=== PATIENT | female | born 1940 | race Caucasian/White ===

== ENCOUNTER 2020-04-05 18:32 | Inpatient (IN) | payer OTHER ==
[2020-04-05 18:41] LABS: Glucose,Whole Blood 176 mg/dL (75-99)
[2020-04-05] MEDS ORDERED: SODIUM CHLORIDE 0.9% 500 ML 500 ML IV ONE ×2 (18:55→23:28)
[2020-04-05] MEDS ORDERED: MIDAZOLAM 1 MG/ML 5 ML VIAL IV STA ×3 (19:03→20:02)
[2020-04-05 19:26] LABS: Basophils % (A) 0 %; Eosinophils # (A) 0.2 k/uL (0-0.7); Eosinophils % (A) 2 %; HCT 44.1 % (34.0-46.0); HGB 14.8 gm/dL (11.4-16.0); Lymphocytes # (A) 0.4 k/uL (1.0-4.8); Lymphocytes % (A) 4 %; MCH 29.5 pg (25.0-35.0); MCHC 33.5 g/dL (31.0-37.0); MCV 87.9 fL (80.0-100.0); Mean Platelet Volume 7.8; Monocytes # (A) 0.5 k/uL (0-1.0); Monocytes % (A) 4 %; Neutrophils # (A) 10.2 k/uL (1.3-7.7); Neutrophils % (A) 90 %; Platelet Count 182 k/uL (150-450); RBC 5.02 m/uL (3.80-5.40); RDW 13.5 % (11.5-15.5); WBC 11.4 k/uL (3.8-10.6)
[2020-04-05 19:33] LABS: Alcohol <10 mg/dL; Salicylate <1.0 mg/dL
[2020-04-05 19:35] LABS: ALT 16 U/L (4-34); AST 27 U/L (14-36); Acetaminophen <10.0 ug/mL; African American GFR (CKD) 65 (>60 ml/min/1.73 sqM); Alcohol <10 mg/dL; Alkaline Phosphatase 95 U/L (38-126); Anion Gap 14 mmol/L; Blood Urea Nitrogen 20 mg/dL (7-17); Calcium 10.4 mg/dL (8.4-10.2); Carbon Dioxide 23 mmol/L (22-30); Chloride 98 mmol/L (98-107); Creatine Kinase 293 U/L (30-135); Glucose 174 mg/dL (74-99); Non-African American GFR(CKD) 56 (>60 ml/min/1.73 sqM); Potassium 4.3 mmol/L (3.5-5.1); Sodium 135 mmol/L (137-145); Total Bilirubin 0.8 mg/dL (0.2-1.3); Total Protein 8.6 g/dL (6.3-8.2)
[2020-04-05 19:39] LABS: Lactic Acid, Venous 2.3 mmol/L (0.7-2.0); Prothrombin Time 10.4 sec (9.0-12.0)
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
[2020-04-05 19:51] LABS: Partial Thromboplastin Time 18.6 sec (22.0-30.0)
--- NOTE | 2020-04-05 19:52 | XR ---
EXAMINATION TYPE: XR chest 2V DATE OF EXAM: 04/05/2020 COMPARISON: NONE HISTORY: Altered mental status. TECHNIQUE: Frontal and lateral views of the chest are obtained. FINDINGS: The lungs are hypoaerated. There is mild prominence of the interstitial and vascular leah ngs. No pleural effusion, or pneumothorax seen. The cardiac silhouette size is enlarged. The osseo us structures are intact. IMPRESSION: Hypoventilatory changes versus mild interstitial edema.
[2020-04-05 19:59] LABS: VBG PH 7.38 (7.31-7.41)
[2020-04-05] MEDS ORDERED: LORazepam 2 MG/ML INJ IV STA (20:02)
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
[2020-04-05] MEDS ORDERED: diphenhydrAMINE 50 MG/ML 1 ML VIAL IVP STA (21:14)
[2020-04-05 22:05] LABS: Appearance,Urine Clear (Clear); Bilirubin,Urine Negative (Negative); Blood,Urine Large (Negative); Color,Urine Light Yellow; Glucose,Urine (UA) Trace (Negative); Hyaline Casts,Urine 1 /lpf (0-2); Ketones,Urine Negative (Negative); Leukocyte Esterase,Urine Negative (Negative); Mucus,Urine Rare /hpf; Nitrite,Urine Negative (Negative); Protein,Urine 3+ (Negative); RBC,Urine 3 /hpf (0-5); Specific Gravity,Urine 1.015 (1.001-1.035); Urobilinogen,Urine <2.0 mg/dL (<2.0); WBC,Urine 1 /hpf (0-5)
[2020-04-05 22:26] LABS: Amphetamine Screen,Urine Not Detected (NotDetected); Barbiturate Screen,Urine Not Detected (NotDetected); Benzodiazepines Screen,Urine Not Detected (NotDetected); Cocaine Screen,Urine Not Detected (NotDetected); Methadone Screen, Urine Not Detected (NotDetected); Opiate Screen,Urine Detected (NotDetected); Oxycodone Screen, Urine Not Detected (NotDetected); Phencyclidine Screen,Urine Not Detected (NotDetected); Tricyclic Antidepressant,Urine Not Detected (NotDetected); Urn Cannabinoid Scrn Not Detected (NotDetected)
--- NOTE | 2020-04-05 22:28 | CT ---
EXAMINATION TYPE: CT angio head neck DATE OF EXAM: 04/05/2020 COMPARISON: None HISTORY: stroke CT DLP: 779.2 mGycm Automated exposure control for dose reduction was used. CONTRAST: Performed with IV Contrast, patient injected with 65 mL of Isovue 370. There are 3-D post processed images. Images obtained from the aortic arch to the vertex of the brain with IV contrast. Heart is enlarged. Thoracic aorta is atheromatous. There is 4.7 cm aneurysm of the ascending aorta. T here is no dissection. There is arterial flow in the subclavian arteries bilaterally. There is tortuo sity of the great vessels on the aortic arch. There is normal branching pattern. There is arterial flow in the common internal and external carotid arteries bilaterally. There is mil d plaque formation at the carotid artery bifurcations and less than 20% stenosis. There is arterial f low in both vertebral arteries. There is no evidence of carotid or vertebral artery aneurysm or disse ction. There is arterial flow in the vertebrobasilar artery system. There is arterial flow in the anterior middle and posterior cerebral arteries. There is normal contrast opacification of the venous sinuses. There is no evidence of intracranial an eurysm or neovascularity. There is no mass effect. I see no intracranial arterial stenosis. IMPRESSION: Minimal atheromatous change at the carotid artery bifurcations. No evidence of hemodynamic stenosis. 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 No dissection. No significant intracranial angiographic abnor mality.
[2020-04-05] MEDS ORDERED: NALOXONE 0.4 MG/ML 1 ML VIAL IV PRN (23:25)
[2020-04-05] MEDS ORDERED: ASPIRIN 300 MG SUPP RECTAL STA (23:27)
[2020-04-06] MEDS: SODIUM CHLORIDE 0.9% 1,000 ML IV SCH ×2 (00:11→19:54)
[2020-04-06 00:31] LABS: Glucose,Whole Blood 147 mg/dL (75-99)
[2020-04-06] MEDS ORDERED: levETIRAcetam IV 1,000 MG in SALINE 1 100ML.BAG IVPB STA (03:18)
[2020-04-06] MEDS: LORazepam 2 MG/ML INJ IV PRN ×7 (03:26→23:19)
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
--- NOTE | 2020-04-06 04:30 | CT ---
EXAM: CT Head Without Intravenous Contrast CLINICAL HISTORY: facial swelling, assess for fractures, confusion TECHNIQUE: Axial computed tomography images of the head/brain without intravenous contrast. CTDI is 49.27 mGy and DLP is 1276.4 mGy-cm. This CT exam was performed using one or more of the following dose reduction techniques: automated exposure control, adjustment of the mA and/or kV according to patient size, and/or use of iterative reconstruction technique. COMPARISON: April 05, 2020 FINDINGS: Brain: Chronic small vessel ischemic changes in the white matter. No acute intracranial hemorrhage, edema or abnormal mass-effect. Ventricles: Unremarkable. No ventriculomegaly. Bones/joints: Unremarkable. No acute fracture. Soft tissues: Unremarkable. Sinuses: Unremarkable as visualized. No acute sinusitis. Mastoid air cells: Unremarkable as visualized. No mastoid effusion. Other findings: The study is motion degraded along the inferior aspect. IMPRESSION: No acute findings in the head/brain. Motion degraded study inferiorly.
[2020-04-06] MEDS ORDERED: ACETAMINOPHEN IV (For NPO) 1,000 MG in EMPTY BAG 1 BAG IVPB PRN (06:35)
[2020-04-06 07:31] LABS: Calcium 10.2 mg/dL (8.4-10.2); Potassium 3.6 mmol/L (3.5-5.1)
[2020-04-06 07:48] LABS: Basophils # (A) 0.1 k/uL (0-0.2); Basophils % (A) 1 %; Eosinophils % (A) 0 %; HCT 46.9 % (34.0-46.0); HGB 15.7 gm/dL (11.4-16.0); Lymphocytes # (A) 0.6 k/uL (1.0-4.8); Lymphocytes % (A) 4 %; MCH 30.5 pg (25.0-35.0); MCHC 33.5 g/dL (31.0-37.0); MCV 91.2 fL (80.0-100.0); Mean Platelet Volume 7.6; Monocytes # (A) 1.3 k/uL (0-1.0); Monocytes % (A) 9 %; Neutrophils # (A) 12.5 k/uL (1.3-7.7); Neutrophils % (A) 85 %; Platelet Count 232 k/uL (150-450); RBC 5.14 m/uL (3.80-5.40); RDW 13.2 % (11.5-15.5); WBC 14.7 k/uL (3.8-10.6)
[2020-04-06] MEDS ORDERED: HALOPERIDOL LACTATE 5 MG/ML 1 ML VIAL IM STA (07:55)
[2020-04-06] MEDS ORDERED: HALOPERIDOL LACTATE 5 MG/ML 1 ML VIAL ONE (07:57)
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
[2020-04-06 08:53] LABS: Appearance,Urine Cloudy (Clear); Bilirubin,Urine Negative (Negative); Blood,Urine Large (Negative); Color,Urine Light Brown; Glucose,Urine (UA) 1+ (Negative); Ketones,Urine Negative (Negative); Leukocyte Esterase,Urine Moderate (Negative); Mucus,Urine Rare /hpf; Nitrite,Urine Negative (Negative); PH, Urine 6.5 (5.0-8.0); Protein,Urine 3+ (Negative); RBC,Urine >182 /hpf (0-5); Specific Gravity,Urine 1.037 (1.001-1.035); Urobilinogen,Urine <2.0 mg/dL (<2.0); WBC,Urine 69 /hpf (0-5)
[2020-04-06] MEDS: ACYCLOVIR SODIUM 800 MG in SODIUM CHLORIDE 0.9% 100 ML IV SCH ×2 (09:58→21:28)
[2020-04-06 10:13] LABS: Cholesterol 246 mg/dL (<200); HDL Cholesterol 55 mg/dL (40-60); LDL Cholesterol,Calculated 168 mg/dL (0-99); Triglycerides 117 mg/dL (<150)
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
[2020-04-06] MEDS ORDERED: PHENYTOIN SODIUM INJ 1,000 MG in SODIUM CHLORIDE 0.9% 100 ML IVPB STA (11:34)
[2020-04-06] MEDS ORDERED: IV FLUID CONTINUATION 1,000 ML IV ONE (12:30)
[2020-04-06] MEDS ORDERED: PROPOFOL 10 MG/ML 20 ML VIAL IV ONE (12:55)
[2020-04-06 12:58] LABS: Glucose,Whole Blood 158 mg/dL (75-99)
--- NOTE | 2020-04-06 13:15 | P.PCN ---
Date of Procedure: 04/06/20 Description of Procedure: Procedure: Lumbar Puncture . Preoperative Diagnoses: Encephalopathy Postoperative Diagnosis: Encephalopathy Anesthesia: Gen. IV sedation Condition: stable. Complications: none. Description of the procedure: Patient was seen in the preoperative area. She was noted to be combative but awake. She did not respond to any instructions. Consent was signed by the family on the floor. She was brought to the procedure room on the stretcher. Monitors were placed and then she was sedated via her IV. She was placed in left lateral decubitus position. The back was cleansed with iodine 3. The sacral os was palpated, the iliac crest was palpated to identify the L2-L3 interspace. At that point lidocaine 1% was used to anesthetize the skin, total of 5 mL was used. A 22 gauge spinal needle was advanced until spinal fluid was aspirated through the needle and a three - way stop cock. Opening pressure CSF was 18, CSF was obtained and sent off to laboratory for examination. Band-Aid was placed after the procedure the patient was instructed to lay flat for the next few hours. The patient was discharged from the PACU in stable condition.
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
[2020-04-06 14:52] LABS: Appearance,CSF Clear; CSF Tube Number 3; CSF Tube Volume 2; Nucleated Cells, CSF 0 u/L (0-5); Red Blood Cell,CSF 1 u/L (0-10)
[2020-04-06 14:53] LABS: Glucose,CSF 100 mg/dL (40-70); Total Protein,CSF 63 mg/dL (12-60)
[2020-04-06 15:34] LABS: Glucose,Whole Blood 140 mg/dL (75-99)
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
[2020-04-06] MEDS ORDERED: VANCOMYCIN 1,500 MG in SODIUM CHLORIDE 0.9% 250 ML IVPB STA (15:53)
[2020-04-06] MEDS: METOPROLOL TARTRATE 5 MG/5 ML VIAL IVP SCH (17:46)
[2020-04-06] MEDS: AMPICILLIN 1,000 MG in SODIUM CHLORIDE 0.9% 50 ML IVPB SCH (17:50)
--- NOTE | 2020-04-06 17:53 | ECHOF ---
Referral Reason:elevated troponin. No recent Echo on patient MEASUREMENTS -------- HEIGHT: 170.2 cm WEIGHT: 78.5 kg BP: IVSd: 1.1 cm (0.6 - 1.1) LVIDd: 2.2 cm (3.9 - 5.3) LVPWd: 1.4 cm (0.6 - 1.1) IVSs: 1.4 cm LVIDs: 1.0 cm LVPWs: 1.3 cm MV E Samuel: 0.46 m/s MV DecT: 146 ms MV A Samuel: 0.93 m/s MV E/A Ratio: 0.50 RAP: 5.00 mmHg RVSP: 14.84 mmHg FINDINGS -------- This was a technically difficult study with suboptimal views. Pt. is combative limited study. The left ventricular size is normal. Left ventricular wall thickness is normal. Overall left vent ricular systolic function is low-normal with, an EF between 50 - 55 %. The RV was not well visualized. The left atrial size is normal. The right atrium was not well visualized. Lumason used The aortic valve was not well visualized. The mitral valve is normal. Mild mitral regurgitation is present. The tricuspid valve appears structurally normal. Mild tricuspid regurgitation present. Right vent ricular systolic pressure is normal at < 35 mmHg. There is no pulmonic regurgitation present. The aortic root size is normal. IVC Not well visulized. There is no pericardial effusion. CONCLUSIONS -------- 1. Pt. is combative limited study. 2. The left ventricular size is normal. 3. Left ventricular wall thickness is normal. 4. Overall left ventricular systolic function is low-normal with, an EF between 50 - 55 %. 5. Mild mitral regurgitation is present. 6. Mild tricuspid regurgitation present. 7. There is no pericardial effusion. AFTER SCHOOL COUNSELOR: Arpita Tavarez RDCS
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
[2020-04-06 21:16] LABS: Glucose,Whole Blood 113 mg/dL (75-99)
[2020-04-07] MEDS: METOPROLOL TARTRATE 5 MG/5 ML VIAL IVP SCH ×3 (00:02→15:58)
[2020-04-07] MEDS: AMPICILLIN 1,000 MG in SODIUM CHLORIDE 0.9% 50 ML IVPB SCH ×4 (00:06→18:22)
[2020-04-07] MEDS: LORazepam 2 MG/ML INJ IV PRN ×3 (01:34→05:09)
[2020-04-07 04:00] LABS: Basophils % (A) 0 %; Eosinophils # (A) 0.4 k/uL (0-0.7); Eosinophils % (A) 2 %; HCT 46.2 % (34.0-46.0); HGB 15.7 gm/dL (11.4-16.0); Lymphocytes # (A) 1.1 k/uL (1.0-4.8); Lymphocytes % (A) 7 %; MCH 30.1 pg (25.0-35.0); MCV 88.4 fL (80.0-100.0); Mean Platelet Volume 7.5; Monocytes # (A) 1.3 k/uL (0-1.0); Monocytes % (A) 8 %; Neutrophils # (A) 12.9 k/uL (1.3-7.7); Neutrophils % (A) 81 %; Platelet Count 203 k/uL (150-450); RBC 5.23 m/uL (3.80-5.40); RDW 13.4 % (11.5-15.5); WBC 15.9 k/uL (3.8-10.6)
[2020-04-07 04:19] LABS: Potassium 4.7 mmol/L (3.5-5.1)
[2020-04-07] MEDS: VANCOMYCIN 1,250 MG in SODIUM CHLORIDE 0.9% 250 ML IVPB SCH ×2 (05:43→22:13)
[2020-04-07 05:49] LABS: Glucose,Whole Blood 117 mg/dL (75-99)
--- NOTE | 2020-04-07 06:35 | XR ---
EXAMINATION TYPE: XR chest 1V DATE OF EXAM: 04/07/2020 CLINICAL HISTORY: Difficulty breathing progress study. TECHNIQUE: 2 AP portable supine views of the chest are obtained. COMPARISON: Chest x-ray from 2 days earlier FINDINGS: There is chronic parenchymal change bilaterally with new lateral right basilar linear atel ectasis and upper lung vertical linear atelectasis. Persistent cardiomegaly with atherosclerotic styles ge aortic knob. Osseous structures are intact. IMPRESSION: Cardiomegaly and chronic parenchymal changes with low lung volumes redemonstrated. New sc attered right lung linear atelectasis noted.
[2020-04-07] MEDS ORDERED: HALOPERIDOL LACTATE 5 MG/ML 1 ML VIAL IVP PRN ×2 (07:51→16:09)
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
[2020-04-07] MEDS: ACYCLOVIR SODIUM 800 MG in SODIUM CHLORIDE 0.9% 100 ML IV SCH ×2 (11:11→21:09)
[2020-04-07 12:03] LABS: Glucose,Whole Blood 112 mg/dL (75-99)
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
--- NOTE | 2020-04-07 14:29 | P.PN ---
Subjective Progress Note Date: 04/07/20 Patient was seen for a follow-up using Tele-neurology. Patient is slightly better today. She still encephalopathic, restless, thrashing in the bed. Patient has received multiple doses of Ativan overnight for restlessness, agitation. Per nurse she has received total of 5 mg. Patient currently on 4 L of oxygen, not on any pressors. No sedation. No seizure-like activity noted. Patient's blood test shows WBC 15.9 hemoglobin 15.7, platelets 203 electrolytes are normal. BUN is 34, creatinine 1.22. Renal functions has slightly worsened. Need to closely watch. Calcium is 10.0, troponin has improved. Patient underwent lumbar puncture yesterday, which was colorless and clear. There were 1 RBC, 0 WBC, glucose 100, protein is elevated 63/60. CSF cultures are negative so far. Urine cultures also negative. Patient continues to be on acyclovir, ampicillin, Rocephin and vancomycin. Also on Haldol for agitation. Patient has received 1 g of Dilantin yesterday. We will check Dilantin level. Objective - Vital Signs Vital signs: Vital Signs Temp 98.0 F 04/07/20 08:00 Pulse 75 04/07/20 11:00 Resp 11 L 04/07/20 11:00 BP 104/77 04/07/20 11:00 Pulse Ox 93 L 04/07/20 11:00 Intake & Output 04/06/20 04/07/20 04/07/20 18:59 06:59 18:59 Intake Total 825 525 250 Output Total 225 590 145 Balance 600 -65 105 Weight 83.4 kg Intake: IV 600 400 250 ACETAMINOPHEN IV (For NPO 400 ) 1,000 mg In Empty Bag 1 bag @ 400 mls/hr IVPB Q6HR [facility] Rx#:[id number] Acyclovir Sodium 800 mg 100 100 100 In Sodium Chloride 0.9% 100 ml @ 116 mls/hr IV Q12HR [facility] Rx#:[id number] Ampicillin 1,000 mg In 100 Sodium Chloride 0.9% 50 ml @ 100 mls/hr IVPB Q6HR [facility] Rx#:[id number] Phenytoin Sodium Inj 1, 100 000 mg In Sodium Chloride 0.9% 100 ml @ 200 mls/hr IVPB ONCE STA Rx#: [id number] Sodium Chloride 0.9% 1, 200 100 000 ml @ 20 mls/hr IV . Q24H [facility] Rx#:[id number] cefTRIAXone 2 gm In 50 Sodium Chloride 0.9% 50 ml @ 100 mls/hr IVPB Q24HR [facility] Rx#:[id number] Intake, IV Titration 225 125 Amount Ampicillin 1,000 mg In 50 Sodium Chloride 0.9% 50 ml @ 100 mls/hr IVPB Q6HR [facility] Rx#:[id number] Vancomycin 1,500 mg In 125 125 Sodium Chloride 0.9% 250 ml @ 125 mls/hr IVPB ONCE STA Rx#:[id number] cefTRIAXone 2 gm In 50 Sodium Chloride 0.9% 50 ml @ 100 mls/hr IVPB Q24HR [facility] Rx#:[id number] Output: Urine 225 590 145 Other: Voiding Method Indwelling Catheter Indwelling Catheter Indwelling Catheter # Bowel Movements 2 1 - Exam On examination patient is encephalopathic, but does open her eyes, and was able to tell her name Manny saavedra. She states that she is in her chair. She was able to tell that it is winter season. In that she is in [place]. Could not tell the year or the month. Limited speech appeared clear. On cranial nerve examination pupils are round and reactive to light, visual hernandez could not be tested. Face is symmetric. Patient's tone is equal. She moves her arms and legs equally. Patient was able to make a sheet catcher, appeared fairly equal. Biceps also appears normal. Patient still has bilateral Babinski. Her temperature is 98.0 and vitals are stable blood pressure 121/78 - Labs CBC & Chem 7: 04/07/20 03:47 04/07/20 03:47 Labs: Abnormal Lab Results - Last 24 Hours (Table) 04/06/20 04/06/20 04/06/20 Range/Units 10:59 12:51 13:15 WBC (3.8-10.6) k/uL Hct (34.0-46.0) % Neutrophils # (1.3-7.7) k/uL Monocytes # (0-1.0) k/uL BUN (7-17) mg/dL Creatinine (0.52-1.04) mg/dL Glucose (74-99) mg/dL POC Glucose (mg/dL) 158 H (75-99) mg/dL Troponin I 0.055 H* (0.000-0.034) ng/mL CSF Glucose 100 H (40-70) mg/dL CSF Total Protein 63 H (12-60) mg/dL 04/06/20 04/06/20 04/06/20 Range/Units 14:37 15:29 21:15 WBC (3.8-10.6) k/uL Hct (34.0-46.0) % Neutrophils # (1.3-7.7) k/uL Monocytes # (0-1.0) k/uL BUN (7-17) mg/dL Creatinine (0.52-1.04) mg/dL Glucose (74-99) mg/dL POC Glucose (mg/dL) 140 H 113 H (75-99) mg/dL Troponin I 0.067 H* (0.000-0.034) ng/mL CSF Glucose (40-70) mg/dL CSF Total Protein (12-60) mg/dL 04/07/20 04/07/20 04/07/20 Range/Units 03:47 03:47 05:47 WBC 15.9 H (3.8-10.6) k/uL Hct 46.2 H (34.0-46.0) % Neutrophils # 12.9 H (1.3-7.7) k/uL Monocytes # 1.3 H (0-1.0) k/uL BUN 34 H (7-17) mg/dL Creatinine 1.22 H (0.52-1.04) mg/dL Glucose 139 H (74-99) mg/dL POC Glucose (mg/dL) 117 H (75-99) mg/dL Troponin I (0.000-0.034) ng/mL CSF Glucose (40-70) mg/dL CSF Total Protein (12-60) mg/dL Microbiology - Last 24 Hours (Table) 04/06/20 06:59 Blood Culture - Preliminary Blood No Growth after 24 hours 04/06/20 13:15 CSF Gram Stain - Preliminary Cerebral Spinal Fluid CSF Culture - Preliminary 04/06/20 04:27 Blood Culture - Preliminary Blood No Growth after 24 hours 04/06/20 08:16 Urine Culture - Preliminary Urine,Voided Assessment and Plan Assessment: * Acute onset of severe encephalopathy, agitation and aphasia, unclear etiology. Patient had transient high fever, with leukocytosis. Rule out herpes encephalitis. CVA less likely. Hypertensive encephalopathy/PRES also in the differential. Limited exam is nonfocal. CTA of head and neck showed no large vessel occlusion or basilar stenosis. Patient's encephalopathy has slightly improved. * Mild to moderate renal insufficiency * Uncontrolled, now improved * Elevated cardiac enzymes. Plan: * Continue acyclovir 10 mg/kg IV every 12 hours (based upon renal clearance). * ID input appreciated. Patient also started on Rocephin 2 g every 24 hours, ampicillin 1000 mg every 6 hours and vancomycin. * Lumbar puncture with RBC 1, WBC 0, total protein 63/60 and glucose 100. Culture so far negative. Viral cultures pending. * EEG just got completed, cannot open EEG files on the computer. We will review the EEG when able to review files in the computer. * Await MRI of the brain with and without contrast. Patient at present will not cooperate with MRI, therefore cannot be performed at this time. She already has received too much sedation, and would avoid further sedation for MRI. She is improving, therefore may hold off on MRI for now. * Patient has received Dilantin 1 g IV loading dose. Dilantin level is 4.7. We will review her EEG. If any epileptiform activity, we will place her on 100 mg every 8 hours.
[2020-04-07] MEDS ORDERED: HALOPERIDOL LACTATE 5 MG/ML 1 ML VIAL IVP ONE (15:53)
[2020-04-07 17:12] LABS: Glucose,Whole Blood 101 mg/dL (75-99)
[2020-04-07] MEDS ORDERED: PHENYTOIN SODIUM INJ 1,000 MG in SODIUM CHLORIDE 0.9% 100 ML IVPB STA (19:28)
[2020-04-07] MEDS: DEXMEDETOMIDINE/0.9% NACL(PMX) 400 MCG in EMPTY BAG 1 BAG IV SCH (21:19)
[2020-04-08 00:01] LABS: Glucose,Whole Blood 129 mg/dL (75-99)
[2020-04-08] MEDS: AMPICILLIN 1,000 MG in SODIUM CHLORIDE 0.9% 50 ML IVPB SCH ×4 (00:31→17:55)
[2020-04-08] MEDS: SODIUM CHLORIDE 0.9% 1,000 ML IV SCH (00:32)
[2020-04-08] MEDS: METOPROLOL TARTRATE 5 MG/5 ML VIAL IVP SCH ×3 (00:33→16:35)
[2020-04-08] MEDS: LORazepam 2 MG/ML INJ IV PRN ×2 (01:12→04:44)
[2020-04-08 04:08] LABS: Basophils % (A) 0 %; Eosinophils # (A) 0.2 k/uL (0-0.7); Eosinophils % (A) 2 %; HGB 13.7 gm/dL (11.4-16.0); Lymphocytes # (A) 0.5 k/uL (1.0-4.8); Lymphocytes % (A) 4 %; MCH 29.6 pg (25.0-35.0); MCHC 33.4 g/dL (31.0-37.0); MCV 88.7 fL (80.0-100.0); Mean Platelet Volume 7.6; Monocytes # (A) 0.8 k/uL (0-1.0); Monocytes % (A) 7 %; Neutrophils % (A) 87 %; Platelet Count 164 k/uL (150-450); RBC 4.62 m/uL (3.80-5.40); WBC 11.5 k/uL (3.8-10.6)
[2020-04-08 04:23] LABS: Albumin 3.3 g/dL (3.5-5.0); Calcium 9.4 mg/dL (8.4-10.2); Phenytoin (Dilantin) 9.9 ug/mL; Potassium 3.6 mmol/L (3.5-5.1); Total Bilirubin 0.6 mg/dL (0.2-1.3); Total Protein 5.9 g/dL (6.3-8.2)
[2020-04-08] MEDS: DEXMEDETOMIDINE/0.9% NACL(PMX) 400 MCG in EMPTY BAG 1 BAG IV SCH ×3 (04:44→19:49)
[2020-04-08] MEDS ORDERED: Potassium Replacement Protocol 1 EACH MISC MISCELLANE PRN (04:54)
[2020-04-08 06:10] LABS: Glucose,Whole Blood 140 mg/dL (75-99)
--- NOTE | 2020-04-08 06:34 | XR ---
EXAMINATION TYPE: XR chest 1V DATE OF EXAM: 04/08/2020 CLINICAL HISTORY: Difficulty breathing progress study. TECHNIQUE: Single AP portable supine view of the chest is obtained. COMPARISON: Chest x-ray from one day earlier and 3 days earlier. FINDINGS: Patient rotated to right on current study. There is chronic parenchymal change bilaterally with patchy horizontal linear atelectasis right lung base now present. Left lung remains clear. Pers istent cardiomegaly with atherosclerotic change thoracic aorta. Underlying scoliotic curvature or pos itioning. IMPRESSION: Cardiomegaly and chronic parenchymal changes with right basilar linear atelectasis.
[2020-04-08] MEDS: POTASSIUM CHLORIDE 10 MEQ in WATER FOR INJECTION 1 100ML.BAG IVPB SCH ×4 (06:43→19:48)
[2020-04-08] MEDS ORDERED: PHENYTOIN SODIUM INJ 50 MG/ML 2 ML VIAL IV SCH (08:00)
[2020-04-08] MEDS ORDERED: PHENYTOIN SODIUM INJ 100 MG in SODIUM CHLORIDE 0.9% 100 ML IVPB SCH (08:00)
[2020-04-08] MEDS: PANTOPRAZOLE 40 MG/10 ML VIAL IVP SCH (08:01)
[2020-04-08] MEDS: PHENYTOIN SODIUM INJ 100 MG in SODIUM CHLORIDE 0.9% 100 ML IVPB SCH ×2 (09:07→16:47)
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
--- NOTE | 2020-04-08 09:59 | EEG ---
ELECTROENCEPHALOGRAM REPORT DATE OF SERVICE: 04/07/2020 PREAMBLE: This is a 80-year-old female with acute encephalopathy, possible CVA versus encephalitis. This study is performed to evaluate for any epileptiform activity. EEG FINDINGS: A 21 channel routine EEG recording on a patient utilizing 10/20 international system with referential and bipolar montages. The background consists of significantly disorganized background with mixed frequencies of 6-7 Hz theta, with 1-2 Hz delta activity in generalized distribution. Background does not seem to be reactive to eye opening or closing. Photic driving response was not seen. Some superimposed fast frequency beta activity was also seen. A lot of myogenic activity was also seen. No focal or generalized epileptiform activity was seen. IMPRESSION: This is an abnormal EEG due to background slowing of moderate degree. This is suggestive of generalized cerebral dysfunction as can be seen with toxic metabolic encephalopathies or due to diffuse structural brain abnormality. No obvious epileptiform activity was seen. MMODL / IJN: [id number] /
[2020-04-08] MEDS: ACYCLOVIR SODIUM 800 MG in SODIUM CHLORIDE 0.9% 100 ML IV SCH ×2 (10:25→20:20)
[2020-04-08 11:58] LABS: Glucose,Whole Blood 123 mg/dL (75-99)
--- NOTE | 2020-04-08 12:26 | US ---
EXAMINATION TYPE: US venous doppler duplex UE LT DATE OF EXAM: 04/08/2020 COMPARISON: NONE CLINICAL HISTORY: rule out DVT . Left arm swelling above IV site. SIDE PERFORMED: Left Limited study performed on ICU patient thriving in bed and unable to cooperate for exam. Left Arm: Negative for DVT as visualized. Positive for SVT in both the cephalic and basilic vessels, both superficial vessels are noncompressible, have thrombus within, and to not demonstrate any flow. Grayscale, color doppler, spectral doppler imaging performed of the deep veins of the upper extremiti es. There is normal flow, compressibility and vascular waveforms in the visualized portions. IMPRESSION: Suboptimal study. Acute superficial venous thrombosis involving both the basilic and ceph alic veins. No convincing evidence for acute DVT in the left upper extremity.
[2020-04-08] MEDS ORDERED: VANCOMYCIN TROUGH DUE 1 EACH MISC MISCELLANE ONE (13:00)
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
--- NOTE | 2020-04-08 16:12 | P.PN ---
Subjective Progress Note Date: 04/08/20 Patient was seen for a follow-up. Patient apparently continues to be severely encephalopathic, restless, agitated, flailing her arms. Sometimes when she talks, is difficult to understand, as she moans and groans. Patient currently on Precedex 0.7 mg/kg/h. When the sedation is decreased, patient was slightly squeezing hands., Spoke some words, which were intelligible and appropriate. Other times she mumbles mostly. Per nurse patient thrashes her arms and legs and is very strong in all 4 extremities. No seizure-like activity noted. Patient's blood test shows WBC 15.9 hemoglobin 15.7, platelets 203 electrolytes are normal. BUN is 34, creatinine 1.22. Renal functions has slightly worsened. Need to closely watch. Calcium is 10.0, troponin has improved. Patient underwent lumbar puncture yesterday, which was colorless and clear. There were 1 RBC, 0 WBC, glucose 100, protein is elevated 63/60. CSF cultures are negative so far. Urine cultures also negative. Patient continues to be on acyclovir, ampicillin, Rocephin and vancomycin. Also on Haldol for agitation. Patient has received 1 g of Dilantin yesterday. We will check Dilantin level. Objective - Vital Signs Vital signs: Vital Signs Temp 97.8 F 04/08/20 12:00 Pulse 67 04/08/20 15:00 Resp 22 04/08/20 15:00 BP 137/71 04/08/20 15:00 Pulse Ox 94 L 04/08/20 15:00 Intake & Output 04/07/20 04/08/20 04/08/20 18:59 06:59 18:59 Intake Total 400 881.855 258.434 Output Total 360 541 257 Balance 40 340.855 1.434 Weight 83.4 kg Intake: IV 400 820 220 Acyclovir Sodium 800 mg 100 100 In Sodium Chloride 0.9% 100 ml @ 116 mls/hr IV Q12HR [facility] Rx#:[id number] Ampicillin 1,000 mg In 50 50 100 Sodium Chloride 0.9% 50 ml @ 100 mls/hr IVPB Q6HR [facility] Rx#:[id number] Phenytoin Sodium Inj 1, 100 000 mg In Sodium Chloride 0.9% 100 ml @ 200 mls/hr IVPB [facility]CE [facility] Rx#: [id number] Potassium Chloride 10 meq 100 In Water For Injection 1 100ml.bag @ 100 mls/hr IVPB Q1H [facility] Rx#: [id number] Sodium Chloride 0.9% 1, 200 220 70 000 ml @ 20 mls/hr IV . Q24H [facility] Rx#:[id number] Vancomycin 1,250 mg In 250 Sodium Chloride 0.9% 250 ml @ 125 mls/hr IVPB Q16H [facility] Rx#:[id number] cefTRIAXone 2 gm In 50 50 Sodium Chloride 0.9% 50 ml @ 100 mls/hr IVPB Q24HR [facility] Rx#:[id number] Intake, IV Titration 61.855 38.434 Amount Dexmedetomidine/0.9% NaCl 61.855 38.434 (Pmx) 400 mcg In Empty Bag 1 bag @ Per Protocol IV .Q0M [facility] Rx#:[id number] Output: Urine 360 541 257 Other: Voiding Method Indwelling Catheter Indwelling Catheter Indwelling Catheter - Exam On examination patient is sedated, but continues to be encephalopathic. Patient's pupils are round and reactive to light. Oculocephalics are slightly present. Face is symmetric. His arms and legs equally. Patient per nurse is much more calm since she is on Precedex 0.7 mg/kg/h. Patient has bilateral Babinski. Her temperature is 98.7, blood pressure 137/71 and pulse rate 67. Saturation 94%. - Labs CBC & Chem 7: 04/08/20 03:40 04/08/20 03:40 Labs: Abnormal Lab Results - Last 24 Hours (Table) 04/07/20 04/07/20 04/08/20 Range/Units 17:09 23:59 03:40 WBC (3.8-10.6) k/uL Neutrophils # (1.3-7.7) k/uL Lymphocytes # (1.0-4.8) k/uL Sodium 136 L (137-145) mmol/L Chloride 111 H (98-107) mmol/L Carbon Dioxide 20 L (22-30) mmol/L BUN 33 H (7-17) mg/dL Glucose 146 H (74-99) mg/dL POC Glucose (mg/dL) 101 H 129 H (75-99) mg/dL AST 148 H (14-36) U/L ALT 75 H (4-34) U/L Total Protein 5.9 L (6.3-8.2) g/dL Albumin 3.3 L (3.5-5.0) g/dL 04/08/20 04/08/20 04/08/20 Range/Units 03:40 06:08 11:55 WBC 11.5 H (3.8-10.6) k/uL Neutrophils # 10.0 H (1.3-7.7) k/uL Lymphocytes # 0.5 L (1.0-4.8) k/uL Sodium (137-145) mmol/L Chloride (98-107) mmol/L Carbon Dioxide (22-30) mmol/L BUN (7-17) mg/dL Glucose (74-99) mg/dL POC Glucose (mg/dL) 140 H 123 H (75-99) mg/dL AST (14-36) U/L ALT (4-34) U/L Total Protein (6.3-8.2) g/dL Albumin (3.5-5.0) g/dL Microbiology - Last 24 Hours (Table) 04/06/20 13:15 CSF Gram Stain - Preliminary Cerebral Spinal Fluid CSF Culture - Preliminary 04/06/20 06:59 Blood Culture - Preliminary Blood No Growth after 48 hours 04/06/20 04:27 Blood Culture - Preliminary Blood No Growth after 48 hours 04/06/20 08:16 Urine Culture - Final Urine,Voided Assessment and Plan Assessment: * Acute onset of severe encephalopathy, agitation and aphasia, unclear etiology. Patient had transient high fever, with leukocytosis. Rule out herpes encephalitis. CVA less likely. Hypertensive encephalopathy/PRES also in the differential. Limited exam is nonfocal. CTA of head and neck showed no large vessel occlusion or basilar stenosis. Patient's encephalopathy continues to fluctuate. * Mild to moderate renal insufficiency, improved * Uncontrolled hypertension, now improved * Elevated cardiac enzymes. Plan: * Continue acyclovir 10 mg/kg IV every 12 hours (based upon renal clearance). * ID input appreciated. Patient also started on Rocephin 2 g every 24 hours, ampicillin 1000 mg every 6 hours and vancomycin. * Lumbar puncture with RBC 1, WBC 0, total protein 63/60 and glucose 100. Culture so far negative. Viral cultures still pending. * EEG was abnormal due to background slowing of moderate degree. This suggestive of generalized cerebral dysfunction as can be seen with toxic metabolic encephalopathy, or due to diffuse structural brain abnormality. No epileptiform activity was seen. Patient has been started on Dilantin. Levels are therapeutic 9.9 this morning. As patient is so severely encephalopathic, would like to keep her on antiepileptic medication, pending HSV PCR results. Once mentation improves, may not need long-term. * Await MRI of the brain with and without contrast. * Consider aspirin 300 mg rectally for stroke prevention pending MRI results. * Neurologically clear for starting Lovenox or subcu heparin for DVT prophylaxis. * Dr. Ryan Navarro will resume neurology service in the morning.
[2020-04-08] MEDS: ENOXAPARIN 40 MG/0.4 ML SYRINGE SQ SCH (16:39)
[2020-04-08] MEDS: ASPIRIN 300 MG SUPP RECTAL SCH (16:39)
[2020-04-08] MEDS: VANCOMYCIN 1,250 MG in SODIUM CHLORIDE 0.9% 250 ML IVPB SCH (16:39)
[2020-04-08 18:07] LABS: Glucose,Whole Blood 125 mg/dL (75-99)
[2020-04-08 23:44] LABS: Glucose,Whole Blood 114 mg/dL (75-99)
[2020-04-09] MEDS: SODIUM CHLORIDE 0.9% 1,000 ML IV SCH (00:25)
[2020-04-09] MEDS: METOPROLOL TARTRATE 5 MG/5 ML VIAL IVP SCH ×3 (00:28→08:47)
[2020-04-09] MEDS: PHENYTOIN SODIUM INJ 100 MG in SODIUM CHLORIDE 0.9% 100 ML IVPB SCH ×3 (01:11→16:26)
[2020-04-09 04:22] LABS: Basophils % (A) 0 %; Eosinophils # (A) 0.1 k/uL (0-0.7); Eosinophils % (A) 1 %; HCT 43.4 % (34.0-46.0); HGB 14.4 gm/dL (11.4-16.0); Lymphocytes # (A) 0.8 k/uL (1.0-4.8); Lymphocytes % (A) 7 %; MCHC 33.2 g/dL (31.0-37.0); MCV 90.1 fL (80.0-100.0); Mean Platelet Volume 7.8; Monocytes # (A) 0.9 k/uL (0-1.0); Monocytes % (A) 8 %; Neutrophils # (A) 9.2 k/uL (1.3-7.7); Neutrophils % (A) 82 %; Platelet Count 142 k/uL (150-450); RBC 4.81 m/uL (3.80-5.40); RDW 13.1 % (11.5-15.5); WBC 11.2 k/uL (3.8-10.6)
[2020-04-09 04:48] LABS: Albumin 3.6 g/dL (3.5-5.0); Calcium 9.6 mg/dL (8.4-10.2); Total Bilirubin 0.6 mg/dL (0.2-1.3); Total Protein 6.4 g/dL (6.3-8.2)
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
[2020-04-09] MEDS: PANTOPRAZOLE 40 MG/10 ML VIAL IVP SCH (08:47)
[2020-04-09] MEDS: ACYCLOVIR SODIUM 800 MG in SODIUM CHLORIDE 0.9% 100 ML IV SCH ×2 (08:47→21:23)
[2020-04-09] MEDS: ASPIRIN 300 MG SUPP RECTAL SCH (09:29)
[2020-04-09] MEDS: HYDROcodone/APAP 7.5-325MG 1 EACH TAB PO PRN ×3 (09:29→23:09)
[2020-04-09] MEDS: NEBIVOLOL 5 MG TAB PO SCH (11:31)
[2020-04-09 11:41] LABS: Glucose,Whole Blood 98 mg/dL (75-99)
[2020-04-09] MEDS: hydrALAZINE HCL 20 MG/ML 1 ML VIAL IVP PRN (12:13)
--- NOTE | 2020-04-09 15:20 | P.PN ---
Subjective Progress Note Date: 04/09/20 I'm seeing the patient for the first time for neurological management. The patient was seen last by Dr. Guzman on 04/08/2020, please see Dr. Guzman notes for further details of patient history and further work-up. Upon seeing the patient stated she is doing better. Per the patient nurse the patient is leaning towards the left. Upon seeing the speech therapist she is neglecting the left side. Patient stated she is claustrophobic and does not want MRI. Objective - Vital Signs Vital signs: Vital Signs Temp 99.2 F 04/09/20 12:00 Pulse 81 04/09/20 12:00 Resp 16 04/09/20 12:00 BP 182/115 04/09/20 12:00 Pulse Ox 97 04/09/20 12:00 Intake & Output 04/08/20 04/09/20 04/09/20 18:59 06:59 18:59 Intake Total 973.953 0078.057 370 Output Total 347 840 475 Balance 425.895 470.057 -105 Weight 83.6 kg Intake: IV 670 1240 370 Acyclovir Sodium 800 mg 100 100 In Sodium Chloride 0.9% 100 ml @ 116 mls/hr IV Q12HR [facility] Rx#:[id number] Ampicillin 1,000 mg In 200 Sodium Chloride 0.9% 50 ml @ 100 mls/hr IVPB Q6HR [facility] Rx#:[id number] Phenytoin Sodium Inj 1, 100 000 mg In Sodium Chloride 0.9% 100 ml @ 200 mls/hr IVPB ONCE [facility] Rx#: [id number] Phenytoin Sodium Inj 100 100 mg In Sodium Chloride 0.9 % 100 ml @ 200 mls/hr IVPB Q8H [facility] Rx#: [id number] Potassium Chloride 10 meq 1000 In Water For Injection 1 100ml.bag @ 100 mls/hr IVPB Q1H [facility] Rx#: [id number] Sodium Chloride 0.9% 1, 70 140 120 000 ml @ 20 mls/hr IV . Q24H [facility] Rx#:[id number] Vancomycin 1,250 mg In 250 Sodium Chloride 0.9% 250 ml @ 125 mls/hr IVPB Q16H [facility] Rx#:[id number] cefTRIAXone 2 gm In 50 50 Sodium Chloride 0.9% 50 ml @ 100 mls/hr IVPB Q24HR [facility] Rx#:[id number] Intake, IV Titration 102.895 70.057 Amount Dexmedetomidine/0.9% NaCl 102.895 70.057 (Pmx) 400 mcg In Empty Bag 1 bag @ Per Protocol IV .Q0M [facility] Rx#:[id number] Output: Urine 347 840 475 Other: Voiding Method Indwelling Catheter Indwelling Catheter Indwelling Catheter # Bowel Movements 2 - Exam GENERAL: The patient is lying in bed and is not in acute distress. NEUROLOGICAL: Higher mental function: The patient is awake, alert, oriented to self, place and time. Patient is following commands. No aphasia. Cranial nerves: The pupils are round, equal and reactive to light. Visual hernandez are hard to assess because of her cooperation. She had right eye ptosis over. Extraocular movement is intact no nystagmus is noted. Facial sensation is normal to touch throughout. The facial strength is I felt patient has subtle left nasolabial flatening at time. Hearing is mildly decreased to hand rub. Tongue is midline and moved [id number] without any difficulty. No dysarthria is noted. Motor: Gait is deferred. The strength is 5 over 5 over the right side but felt she had 3-4 over left and had drift with effort related over the left side compared to the right. Normal tone and bulk. Cerebellum: Could not assess because of cooperation. Sensation: Sensation is normal to touch throughout. Reflexes (right/left): 2+ throughout. Plantars are downgoing bilaterally. - Labs CBC & Chem 7: 04/09/20 03:46 04/09/20 03:46 Labs: Abnormal Lab Results - Last 24 Hours (Table) 04/08/20 04/08/20 04/09/20 Range/Units 18:05 23:42 03:46 WBC 11.2 H (3.8-10.6) k/uL Plt Count 142 L (150-450) k/uL Neutrophils # 9.2 H (1.3-7.7) k/uL Lymphocytes # 0.8 L (1.0-4.8) k/uL Chloride (98-107) mmol/L Carbon Dioxide (22-30) mmol/L BUN (7-17) mg/dL Glucose (74-99) mg/dL POC Glucose (mg/dL) 125 H 114 H (75-99) mg/dL AST (14-36) U/L ALT (4-34) U/L 04/09/20 Range/Units 03:46 WBC (3.8-10.6) k/uL Plt Count (150-450) k/uL Neutrophils # (1.3-7.7) k/uL Lymphocytes # (1.0-4.8) k/uL Chloride 112 H (98-107) mmol/L Carbon Dioxide 20 L (22-30) mmol/L BUN 33 H (7-17) mg/dL Glucose 107 H (74-99) mg/dL POC Glucose (mg/dL) (75-99) mg/dL AST 111 H (14-36) U/L ALT 77 H (4-34) U/L Microbiology - Last 24 Hours (Table) 04/06/20 13:15 CSF Gram Stain - Preliminary Cerebral Spinal Fluid CSF Culture - Preliminary 04/06/20 06:59 Blood Culture - Preliminary Blood No Growth after 72 hours 04/06/20 04:27 Blood Culture - Preliminary Blood No Growth after 72 hours Assessment and Plan Assessment: * Acute onset of severe encephalopathy, agitation and aphasia, unclear etiology. Patient had transient high fever, with leukocytosis. Rule out herpes encephalitis. Hypertensive encephalopathy/PRES also in the differential. Limited exam is nonfocal. CTA of head and neck showed no large vessel occlusion or basilar stenosis---mentation improved. Cannot rule out stroke vs cervical especially since has left sided weakness with reported visual field neglect. * Elevated LFTS (AST: 111 and ALT 77) * Mild to moderate renal insufficiency, improved * Uncontrolled hypertension, now improved * Elevated cardiac enzymes. Plan: * On acyclovir 10 mg/kg IV every 12 hours (based upon renal clearance). * ID input appreciated. Patient also started on Rocephin 2 g every 24 hours, ampicillin 1000 mg every 6 hours and vancomycin. * Lumbar puncture with RBC 1, WBC 0, total protein 63/60 and glucose 100. Culture so far negative. Viral cultures still pending. * EEG on 04/07/2020: was abnormal due to background slowing of moderate degree. This suggestive of generalized cerebral dysfunction as can be seen with toxic metabolic encephalopathy, or due to diffuse structural brain abnormality. No epileptiform activity was seen. Patient is on Dilantin 100mg Q8 hours. Levels are therapeutic 9.9 this morning. Pending HSV PCR results. Will taper her dilantin since was started as prophylactic but will see what MRI Brain reveals. * Await MRI of the brain with and without contrast. I also ordered MRI Cervical spine. Patient wants sedation prior to MRI. * The patient is currently on ASA 300mg qhs. If the patient has no dysphagia issues then recommend ASA 81mg and Lipitor 20mg qhs. * PT/OT and V[employer] are on board. * AST: 111 and ALT 77. * TSH: 0.474 (nromal). * I ordered repeat ammonia level. * The plan is discussed with the patient's nurse. Will continue to follow-up. Ryan Navarro MD Neuro-hospitalist Time with Patient: Less than 30
[2020-04-09] MEDS: ENOXAPARIN 40 MG/0.4 ML SYRINGE SQ SCH (16:26)
[2020-04-09] MEDS: MONTELUKAST 10 MG TAB PO SCH (21:23)
--- NOTE | 2020-04-09 23:09 | PN ---
PROGRESS NOTE DATE OF SERVICE: 04/10/2020 REASON FOR FOLLOW UP: Fever, UTI. INTERVAL HISTORY: Patient did have low grade fever of 99.9 this morning. The patient, however, is more awake and alert. She knows that she is in [facility]. Denies any headache. No chest pain, shortness of breath or cough. No abdominal pain. No diarrhea. PHYSICAL EXAMINATION: Blood pressure 122/76, pulse of 85, temperature 99.7. She is 100% on 2 L nasal cannula. General description is an elderly female lying in bed in no distress. Respiratory system: Unlabored breathing, decreased breath sounds in the base, with no wheeze. Heart S1, S2. Regular rate and rhythm. Abdomen: Soft, no tenderness. LABORATORY DATA: Hemoglobin 14.4, white count 11.2, BUN of 33, creatinine 0.91. Comprehensive viral panel, CSF came back negative. DIAGNOSTIC IMPRESSION AND PLAN: 1. Patient with fever, mental status changes with concern for possible encephalitis. However, the patient viral panel came back negative along with CSF. Acyclovir discontinued. 2. Urinary tract infection covered with Rocephin. 3. Continue supportive care. MMODL / IJN: [id number] /
[2020-04-10] MEDS: SODIUM CHLORIDE 0.9% 1,000 ML IV SCH ×2 (03:30→21:52)
[2020-04-10] MEDS: PHENYTOIN SODIUM INJ 100 MG in SODIUM CHLORIDE 0.9% 100 ML IVPB SCH ×2 (03:42→10:06)
[2020-04-10 06:44] LABS: MCH 30.4 pg (25.0-35.0); MCHC 34.3 g/dL (31.0-37.0); MCV 88.8 fL (80.0-100.0); Platelet Count 227 k/uL (150-450); RBC 4.61 m/uL (3.80-5.40); RDW 13.2 % (11.5-15.5); WBC 12.8 k/uL (3.8-10.6)
[2020-04-10 06:51] LABS: Calcium 9.7 mg/dL (8.4-10.2); Potassium 3.4 mmol/L (3.5-5.1)
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
[2020-04-10] MEDS: NEBIVOLOL 5 MG TAB PO SCH (10:07)
[2020-04-10] MEDS: PANTOPRAZOLE 40 MG/10 ML VIAL IVP SCH (10:07)
[2020-04-10] MEDS: lisinopriL 20 MG TAB PO SCH (10:07)
[2020-04-10] MEDS: POTASSIUM CHLORIDE ER 20 MEQ TAB.ER PO SCH ×2 (10:08→15:42)
[2020-04-10] MEDS ORDERED: LORazepam 2 MG/ML INJ IV ONE (11:00)
[2020-04-10 12:06] LABS: VDRL, Qualitative CSF Nonreactive (Nonreactive)
--- NOTE | 2020-04-10 13:56 | MR ---
EXAMINATION TYPE: MR brain/cspine wo/w DATE OF EXAM: 04/10/2020 COMPARISON: CT brain 04/06/2020 HISTORY: Altered mental status, r/o stroke. CONTRAST: Performed utilizing 8 mL intravenous Gadavist gadolinium contrast. TECHNIQUE: Multiplanar, multiecho imaging on a 3.0 Rosalie magnet is performed through the brain. Stud y is performed within 24 hours of arrival to the hospital. The craniovertebral junction is normal. The pituitary is normal. Diffusion-weighted imaging is performed. No abnormal hyperintensity is present to suggest an acute i ntracranial infarct or acute ischemic change. There are scattered punctate areas of hyperintensity on T2 and Inversion Recovery weighted sequences in the periventricular and subcortical white matter which are non-specific but can be related to multimedia specialist jason microvascular ischemic changes. Ventricles and sulci are appropriate for the patient age. Following contrast, no abnormal enhancement is evident. IMPRESSIONS: 1. Chronic appearing periventricular white matter ischemic type changes. 2. No suspicious masses or enhancing lesions to suggest metastatic disease. EXAMINATION TYPE: MR brain/cspine wo/w DATE OF EXAM: 04/10/2020 COMPARISON: None HISTORY: Altered mental status, r/o stroke. CONTRAST: Performed utilizing 8 mL intravenous Gadavist gadolinium contrast. TECHNIQUE: Multiplanar multiecho imaging on a 3.0 Rosalie magnet is performed through the cervical spin e. Despite multiple reminders, there is excessive motion during this examination which makes portions very limited were nondiagnostic. FINDINGS: The craniovertebral junction is normal. Vertebral body alignment is normal. Vertebral body heights are preserved. There appears to be some mild disc desiccation present. Signifi cant disc bulging is not identified. Some mild disc bulging may be present in the region of C3-4 and C6-7 Spinal cord maintains normal signal throughout its visualized course. Vertebral body heights are pres erved. No abnormal enhancement is evident. IMPRESSIONS: 1. Very limited MRI cervical spine. 2. Mild disc bulging suspected C3-4 and C6-7. 3. No obvious metastatic lesions
[2020-04-10] MEDS: ASPIRIN 300 MG SUPP RECTAL SCH (15:19)
--- NOTE | 2020-04-10 15:45 | P.PN ---
Subjective Progress Note Date: 04/10/20 Patient was seen at bedside and she is accompanied with her sister and the patient stated that she's doing better today compared to yesterday. According to the patient she has chronic lower back pain as well as pelvic pain that has been getting worse she said that she had it for years denies any radiation to the legs she said it can go up only to the lower back up to the proximal thigh region. She denies any bladder or bowel issues with this. Patient denies off any neck pain. Patient had MRI the brain as well as cervical spine with and without and it's reported as chronic appearing periventricular white matter ischemic type changes at.His mass or enhancing lesions suggest metastatic disease. MRI of the cervical spine is reported as very limited MRI cervical spine. Mild disc bulging suspected C3-C4 and C6-C7. No obvious metastatic lesion. The patient has acute superficial venous thrombosis involving both of his the like and the cephalic vein. Patient the was having pain in the left arm forearm with the edema. Objective - Vital Signs Vital signs: Vital Signs Temp 99 F 04/10/20 04:00 Pulse 77 04/10/20 11:00 Resp 20 04/10/20 11:00 BP 166/105 04/10/20 11:00 Pulse Ox 98 04/10/20 11:00 Intake & Output 04/09/20 04/10/20 04/10/20 18:59 06:59 18:59 Intake Total 510 320 250 Output Total 910 635 270 Balance -400 -315 -20 Weight 88.7 kg Intake: IV 510 320 250 Acyclovir Sodium 800 mg 100 100 In Sodium Chloride 0.9% 100 ml @ 116 mls/hr IV Q12HR [facility] Rx#:[id number] Phenytoin Sodium Inj 100 100 100 mg In Sodium Chloride 0.9 % 100 ml @ 200 mls/hr IVPB Q8H [facility] Rx#: [id number] Sodium Chloride 0.9% 1, 260 220 100 000 ml @ 20 mls/hr IV . Q24H [facility] Rx#:[id number] cefTRIAXone 2 gm In 50 50 Sodium Chloride 0.9% 50 ml @ 100 mls/hr IVPB Q24HR [facility] Rx#:[id number] Output: Urine 910 635 270 Other: Voiding Method Indwelling Catheter Indwelling Catheter Indwelling Catheter # Bowel Movements 2 - Exam GENERAL: The patient is lying in bed and is not in acute distress. NEUROLOGICAL: Higher mental function: The patient is awake, alert, oriented to self, place and time. Patient is following commands. No aphasia or neglect. Cranial nerves: The pupils are round, equal and reactive to light. Visual fi elds are full to confrontation. Extraocular movement is intact no nystagmus is noted. Facial sensation is normal to touch throughout. The facial strength is normal throughout (she feels the patient has no facial asymetrry). Hearing is mildly decreased to hand rub. Tongue is midline and moved [id number] without any difficulty. No dysarthria is noted. Motor: Gait is deferred. The strength is 5 over 5 over the right side but limited on the left upper extremity especially since patient has left upper extremity edema throughout with eyrthema in arm (clot). She is able to raise the left upper extremity above gravity. Left handgrip was 5 minus over 5 the.. Bilateral lower extremity she's able to lift bilateral extremity above gravity but seems that the right is strength is more than the left but she is having worsening of her lower back pain. Cerebellum: Could not assess because of cooperation. Sensation: Sensation is normal to touch throughout. Reflexes (right/left): 2+ throughout. Plantars are downgoing bilaterally. - Labs CBC & Chem 7: 04/10/20 06:19 04/10/20 06:19 Labs: Abnormal Lab Results - Last 24 Hours (Table) 04/10/20 04/10/20 Range/Units 06:19 06:19 WBC 12.8 H (3.8-10.6) k/uL Potassium 3.4 L (3.5-5.1) mmol/L BUN 20 H (7-17) mg/dL Glucose 148 H (74-99) mg/dL Microbiology - Last 24 Hours (Table) 04/06/20 13:15 CSF Gram Stain - Final Cerebral Spinal Fluid CSF Culture - Final 04/06/20 06:59 Blood Culture - Preliminary Blood No Growth after 96 hours 04/06/20 04:27 Blood Culture - Preliminary Blood No Growth after 96 hours Assessment and Plan Assessment: * Acute onset of severe encephalopathy, agitation and aphasia---resolve. Unclear etiology. MRI Brain negative for stroke or PRES or mass. * Chronic lower back and hip pain that is worsening * Elevated LFTS (AST: 111 and ALT 77) * Mild to moderate renal insufficiency, improved * Uncontrolled hypertension, improved * Elevated cardiac enzymes. Plan: * Lumbar puncture with RBC 1, WBC 0, total protein 63/60 and glucose 100. Culture so far negative. No viruses detected via CSF. VDRL CSF: Non reactive * EEG on 04/07/2020: was abnormal due to background slowing of moderate degree. This suggestive of generalized cerebral dysfunction as can be seen with toxic metabolic encephalopathy, or due to diffuse structural brain abnormality. No epileptiform activity was seen. Patient is on Dilantin 100mg Q8 hours. Levels are therapeutic 9.9 this morning. Pending HSV PCR results. Will taper her dilantin since was started as prophylactic but will see what MRI Brain reveals. * Patient had MRI the brain with and without and it's reported as chronic appearing periventricular white matter ischemic type changes at.His mass or enhancing lesions suggest metastatic disease. * MRI of the cervical spine is reported as very limited MRI cervical spine. Mild disc bulging suspected C3-C4 and C6-C7. No obvious metastatic lesion. * Patient the was discontinued on acyclovir and antibiotic. * Dilantin was started as a prophylactic because of encephalopathy but since the MRI was normal and mentation is back to baseline there is no need for the patient to to be on Dilantin * There is no need for the patient to be on the antiplatelets or statin from a neurology perspective since this was not stroke. * I consulted the orthopedic team especially the patient is having the lower ba ck pain and pelvic pain that's worsening recently. The patient is not enthusiastic about any intervention on her back but would like their input. * The plan is discussed with the patient, her sister (who is at bedside) and her nurse. Will follow-up with patient sporadically. Ryan Navarro MD Neuro-hospitalist Time with Patient: Greater than 30
[2020-04-10] MEDS: HYDROcodone/APAP 7.5-325MG 1 EACH TAB PO PRN ×2 (15:59→21:55)
[2020-04-10] MEDS: ENOXAPARIN 40 MG/0.4 ML SYRINGE SQ SCH (18:08)
--- NOTE | 2020-04-10 18:55 | XR ---
EXAMINATION TYPE: XR pelvis AP view DATE OF EXAM: 04/10/2020 COMPARISON: NONE HISTORY: Hip pain. Low back pain TECHNIQUE: 3 views FINDINGS: Pelvic ring is intact. There is right hip prosthesis. Components appear in anatomic positio n. Sacroiliac joints are intact. proximal left femur is intact. IMPRESSION: No acute abnormality of the pelvis. Right hip not adversely changed compared to 09/03/2009 .
--- NOTE | 2020-04-10 18:57 | XR ---
EXAMINATION TYPE: XR lumbar spine 2 or 3V DATE OF EXAM: 04/10/2020 COMPARISON: NONE HISTORY: Low back pain. Hip pain TECHNIQUE: 3 views FINDINGS: The lumbar vertebra have normal alignment. Posterior elements are intact. Abdominal aorta i s atheromatous. There is anterior spurring in the upper lumbar spine. There is no compression fractur e. Sacroiliac joints are intact. IMPRESSION: Mild spondylotic changes in the upper lumbar spine. No fracture.
[2020-04-10] MEDS: MONTELUKAST 10 MG TAB PO SCH (21:55)
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
[2020-04-11] MEDS: HYDROcodone/APAP 7.5-325MG 1 EACH TAB PO PRN (02:37)
[2020-04-11 04:22] LABS: HCT 38.5 % (34.0-46.0); HGB 13.2 gm/dL (11.4-16.0); MCH 30.5 pg (25.0-35.0); MCHC 34.2 g/dL (31.0-37.0); MCV 89.2 fL (80.0-100.0); Mean Platelet Volume 8.1; Platelet Count 198 k/uL (150-450); RBC 4.32 m/uL (3.80-5.40); RDW 13.2 % (11.5-15.5); WBC 10.3 k/uL (3.8-10.6)
[2020-04-11 04:41] LABS: Calcium 9.2 mg/dL (8.4-10.2); Potassium 3.6 mmol/L (3.5-5.1)
[2020-04-11 05:09] LABS: C Reactive Protein 188.9 mg/L (<10.0)
--- NOTE | 2020-04-11 07:27 | XR ---
EXAMINATION TYPE: XR chest 1V DATE OF EXAM: 04/11/2020 COMPARISON: 04/08/2020 HISTORY: 80-year-old female pneumonia TECHNIQUE: Single frontal view of the chest is obtained. FINDINGS: Heart mildly enlarged. Mild atherosclerotic aortic calcifications. A curvilinear focal opacity in the periphery of the right midlung is new. Periphery and lung bases are somewhat underpenetrated limitin g assessment. IMPRESSION: 1. Mild cardiomegaly. 2. New curvilinear band of atelectasis at the right midlung. No definite progressive consolidation se en.
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
[2020-04-11] MEDS: lisinopriL 20 MG TAB PO SCH (08:22)
[2020-04-11] MEDS: NEBIVOLOL 5 MG TAB PO SCH (08:22)
[2020-04-11] MEDS: PANTOPRAZOLE 40 MG/10 ML VIAL IVP SCH (08:22)
[2020-04-11] MEDS: HYDROcodone/APAP 10-325MG 1 EACH TAB PO PRN ×3 (08:22→22:46)
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
[2020-04-11] MEDS: ENOXAPARIN 40 MG/0.4 ML SYRINGE SQ SCH (17:08)
--- NOTE | 2020-04-11 18:46 | PN ---
PROGRESS NOTE DATE OF SERVICE: 04/11/2020 REASON FOR FOLLOWUP: Fever and leukocytosis. INTERVAL HISTORY: The patient is currently afebrile. No fever for the last 48 hours. The patient is more awake and alert. She is breathing comfortably. Denies having any chest pain or cough. No abdominal pain. Complaining of some swelling and redness in the left arm at the previous IV site and positive . PHYSICAL EXAMINATION: Blood pressure 115/89 with a pulse of 62, temperature 98.1. She is 94% on 2 L nasal cannula. General description is an elderly female lying in bed in no distress. RESPIRATORY SYSTEM: Unlabored breathing with decreased breath sounds at the base. No wheeze. HEART: S1, S2. Regular rate and rhythm. ABDOMEN: Soft. No tenderness. Left upper extremity did have some swelling, minimal redness. No drainage. LABS: Hemoglobin is 13.1, white count 2.3, BUN of 19, creatinine 0.79. DIAGNOSTIC IMPRESSION AND PLAN: Patient admitted to the hospital with mental status changes. Did have a fever in this patient who did have extensive workup and now this has been negative. Cultures are negative. The patient is currently being monitored closely off antibiotic therapy with the fever resolved and white count normalized. MMODL / IJN: [id number] /
[2020-04-11] MEDS: MONTELUKAST 10 MG TAB PO SCH (21:20)
[2020-04-11] MEDS: SODIUM CHLORIDE 0.9% 1,000 ML IV SCH (23:43)
[2020-04-12] MEDS ORDERED: ARTIFICIAL TEARS-HYPROMELLOSE DROPS 15 ML BTL BOTH EYES PRN (01:00)
[2020-04-12 05:47] LABS: Basophils % (A) 0 %; Eosinophils # (A) 0.3 k/uL (0-0.7); Eosinophils % (A) 4 %; HCT 41.2 % (34.0-46.0); HGB 13.1 gm/dL (11.4-16.0); Lymphocytes % (A) 12 %; MCH 28.6 pg (25.0-35.0); MCHC 31.9 g/dL (31.0-37.0); MCV 89.7 fL (80.0-100.0); Mean Platelet Volume 7.8; Monocytes # (A) 0.9 k/uL (0-1.0); Monocytes % (A) 11 %; Neutrophils # (A) 5.7 k/uL (1.3-7.7); Neutrophils % (A) 72 %; Platelet Count 235 k/uL (150-450); RDW 13.6 % (11.5-15.5)
[2020-04-12 06:10] LABS: Albumin 3.2 g/dL (3.5-5.0); Calcium 9.5 mg/dL (8.4-10.2); Total Bilirubin 0.4 mg/dL (0.2-1.3)
[2020-04-12] MEDS: lisinopriL 20 MG TAB PO SCH (07:55)
[2020-04-12] MEDS: NEBIVOLOL 5 MG TAB PO SCH (07:56)
[2020-04-12] MEDS: PANTOPRAZOLE 40 MG/10 ML VIAL IVP SCH (07:56)
[2020-04-12] MEDS: HYDROcodone/APAP 10-325MG 1 EACH TAB PO PRN ×3 (07:58→22:05)
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
[2020-04-12 09:42] VITALS: BMI 30.6
[2020-04-12] MEDS: ENOXAPARIN 40 MG/0.4 ML SYRINGE SQ SCH (18:36)
[2020-04-12] MEDS: hydrALAZINE HCL 20 MG/ML 1 ML VIAL IVP PRN (22:04)
[2020-04-12] MEDS: MONTELUKAST 10 MG TAB PO SCH (22:06)
--- NOTE | 2020-04-12 23:01 | PN ---
PROGRESS NOTE DATE OF SERVICE: 04/12/2020 REASON FOR FOLLOWUP: Fever and leukocytosis. INTERVAL HISTORY: The patient is currently afebrile. The patient is breathing comfortably. Currently on room air. Denies having any chest pain. No shortness of breath. Occasional cough. No abdominal pain. Left arm swelling and redness slightly decreased, pain. PHYSICAL EXAMINATION: Blood pressure 138/74 with a pulse of 59, temperature of 98.7. She is 94% on room air. General description is an elderly female up in the bed in no distress. Respiratory system: Unlabored breathing, clear to auscultation. HEART: S1, S2. Regular rate and rhythm. ABDOMEN: Soft, no tenderness. LABS: Hemoglobin is 13.1, white count 8.0. BUN of 21, creatinine 0.88. Cultures remain to be negative. DIAGNOSTIC IMPRESSION AND PLAN: Patient with fever in this patient who did have extensive workup. All cultures have been negative so far. The patient is currently off antibiotic for the last few days and no recurrence of fever or elevated white count. No need for any antibiotic therapy at this point. MMODL / IJN: [id number] /
[2020-04-12] MEDS: SODIUM CHLORIDE 0.9% 1,000 ML IV SCH (23:08)
[2020-04-13 05:27] LABS: Albumin 3.2 g/dL (3.5-5.0); Calcium 9.5 mg/dL (8.4-10.2); Potassium 4.1 mmol/L (3.5-5.1); Total Bilirubin 0.4 mg/dL (0.2-1.3)
[2020-04-13 05:36] LABS: Basophils % (A) 0 %; Eosinophils # (A) 0.2 k/uL (0-0.7); Eosinophils % (A) 2 %; HCT 38.7 % (34.0-46.0); HGB 12.6 gm/dL (11.4-16.0); Lymphocytes # (A) 0.9 k/uL (1.0-4.8); Lymphocytes % (A) 12 %; MCH 29.7 pg (25.0-35.0); MCHC 32.5 g/dL (31.0-37.0); MCV 91.3 fL (80.0-100.0); Mean Platelet Volume 8.8; Monocytes # (A) 0.9 k/uL (0-1.0); Monocytes % (A) 12 %; Neutrophils # (A) 5.4 k/uL (1.3-7.7); Neutrophils % (A) 73 %; Platelet Count 231 k/uL (150-450); RBC 4.24 m/uL (3.80-5.40); RDW 13.4 % (11.5-15.5); WBC 7.5 k/uL (3.8-10.6)
[2020-04-13] MEDS ORDERED: PANTOPRAZOLE 40 MG TABLET PO SCH (07:30)
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
[2020-04-13] MEDS: HYDROcodone/APAP 10-325MG 1 EACH TAB PO PRN ×2 (09:31→16:59)
[2020-04-13] MEDS: lisinopriL 20 MG TAB PO SCH (09:33)
[2020-04-13] MEDS: NEBIVOLOL 5 MG TAB PO SCH (09:33)
[2020-04-13 09:36] VITALS: PULSE 83
--- NOTE | 2020-04-13 11:04 | P.PN ---
Subjective Progress Note Date: 04/13/20 Patient was seen at bedside and she stated that she's doing much better today compared to couple days ago seen her last. She stated that she is more awake. She continues to have pain over the left arm where the DVT is. Otherwise denies of any focal weakness, numbness, visual disturbance at. Objective - Vital Signs Vital signs: Vital Signs Temp 98.7 F 04/13/20 09:34 Pulse 83 04/13/20 09:34 Resp 14 04/13/20 09:34 BP 159/119 04/13/20 09:34 Pulse Ox 98 04/13/20 04:00 Intake & Output 04/12/20 04/13/20 04/13/20 18:59 06:59 18:59 Intake Total 1000 Output Total 700 Balance 300 Weight 88.6 kg 87.2 kg Intake: Oral 1000 Output: Urine/Stool Mix 700 Other: Voiding Method Bedside Commode Bedside Commode Bedside Commode Diaper Diaper Diaper # Voids 1 # Bowel Movements 1 - Exam GENERAL: The patient is lying in bed and is not in acute distress. NEUROLOGICAL: Higher mental function: The patient is awake, alert, oriented to self, place and time. Patient is following commands. No aphasia or neglect. Cranial nerves: The pupils are round, equal and reactive to light. Visual hernandez are full to confrontation. Extraocular movement is intact no nystagmus is noted. Facial sensation is normal to touch throughout. The facial strength is normal throughout. Hearing is mildly decreased to hand rub. Tongue is midline and moved [id number] without any difficulty. No dysarthria is noted. Motor: Gait is deferred. The strength is 5 over 5 over the right side but is is at least 4/5 over left upper extremity but limited because of pain (left arm pain where DVT is). Left hand personal injury specialist is 5/5. Bilateral lower extremities are4+ to 5-/5 bilaterally and some limitation in her pain. Sensation: Sensation is normal to touch throughout. Reflexes (right/left): 2+ throughout. Plantars are downgoing bilaterally. - Labs CBC & Chem 7: 04/13/20 04:34 04/13/20 04:34 Labs: Abnormal Lab Results - Last 24 Hours (Table) 04/13/20 04/13/20 Range/Units 04:34 04:34 Lymphocytes # 0.9 L (1.0-4.8) k/uL Sodium 134 L (137-145) mmol/L Glucose 115 H (74-99) mg/dL AST 62 H (14-36) U/L ALT 68 H (4-34) U/L Total Protein 6.0 L (6.3-8.2) g/dL Albumin 3.2 L (3.5-5.0) g/dL Microbiology - Last 24 Hours (Table) 04/06/20 06:59 Blood Culture - Final Blood No Growth after 144 hours 04/06/20 04:27 Blood Culture - Final Blood No Growth after 144 hours Assessment and Plan Assessment: * Acute onset of severe encephalopathy, agitation and aphasia---resolved. Unclear etiology. MRI Brain negative for stroke or PRES or mass. * Chronic Lumbosacral spondylosis * Chronic lower back and hip pain * Elevated LFTS (AST: 111 and ALT 77) * Mild to moderate renal insufficiency, improved * Uncontrolled hypertension, improved * Elevated cardiac enzymes. Plan: * Lumbar puncture with RBC 1, WBC 0, total protein 63/60 and glucose 100. Culture so far negative. No viruses detected via CSF. VDRL CSF: Non reactive * EEG on 04/07/2020: was abnormal due to background slowing of moderate degree. This suggestive of generalized cerebral dysfunction as can be seen with toxic metabolic encephalopathy, or due to diffuse structural brain abnormality. No epileptiform activity was seen. Patient is on Dilantin 100mg Q8 hours. Levels are therapeutic 9.9 this morning. Pending HSV PCR results. Will taper her dilantin since was started as prophylactic but will see what MRI Brain reveals. * Patient had MRI the brain with and without and it's reported as chronic appearing periventricular white matter ischemic type changes at.His mass or enhancing lesions suggest metastatic disease. * MRI of the cervical spine is reported as very limited MRI cervical spine. Mild disc bulging suspected C3-C4 and C6-C7. No obvious metastatic lesion. * Patient the was discontinued on acyclovir and antibiotic. Discontinued prophylactic Dilantin. * There is no need for the patient to be on the antiplatelets or statin from a neurology perspective since this was not stroke. 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 * Patient needs to follow-up with a neurologist as an outpatient within 2-3 weeks. * The plan was discussed with the patient. There is no further workup needed from a neurological standpoint. Neurology will sign off. Please reconsult as needed Ryan Navarro MD Neuro-hospitalist Time with Patient: Less than 30
--- NOTE | 2020-04-13 14:20 | PN ---
PROGRESS NOTE DATE OF SERVICE: 04/13/2020 REASON FOR FOLLOWUP: Fever. INTERVAL HISTORY: The patient is currently afebrile. Patient is breathing comfortably, currently on room air. The patient denies having any chest pain. No shortness of breath. Occasional cough. No abdominal pain. No diarrhea. Left arm swelling and redness has slightly decreased. PHYSICAL EXAMINATION: Blood pressure 159/100 with a pulse of 83, temperature 98.7. She is 98% room air. General description is an elderly female up in the bed in no distress. RESPIRATORY SYSTEM: Unlabored breathing, decreased breath sounds at the bases. No wheeze. HEART: S1, S2. Regular rate and rhythm. ABDOMEN: Soft, no tenderness. LABS: Hemoglobin 12.6, white count 7.5, BUN of 17, creatinine 0.77. Culture remains negative. DIAGNOSTIC IMPRESSION AND PLAN: Patient with an episode of fever did have elevated white count admitted to the hospital with mental status changes. Did have extensive workup which has been negative so far. Culture has been negative. Patient is currently being monitored closely by . Continue with supportive care. MMODL / IJN: [id number] /
[2020-04-13 17:49] VITALS: BP 127/90; RESP 20; TEMP 98
== END 2020-04-13 18:09 | disposition home health service (06) | DRG 70 ==
LOC: EC 18:32 → 3SCARD 23:25 → OBSVTOIN 04-06 10:08 → 2SICU 04-06 15:33
PROVIDERS: ADMIT Family Medicine; ATTEND Family Medicine
PROC: 009U3ZX Drainage of Spinal Canal, Percutaneous Approach, Diagnostic (ICD-10-PCS; 2020-04-06)
PROC: 05HD33Z Insertion of Infusion Device into Right Cephalic Vein, Percutaneous Approach (ICD-10-PCS; principal; 2020-04-09 07:30)
DX: G93.40 Encephalopathy, unspecified (principal); J96.01 Acute respiratory failure with hypoxia; N17.9 Acute kidney failure, unspecified; E87.2 Acidosis; R47.01 Aphasia; I82.612 Acute embolism and thrombosis of superficial veins of left upper extremity; N39.0 Urinary tract infection, site not specified; J98.11 Atelectasis; I71.2 Thoracic aortic aneurysm, without rupture; I11.9 Hypertensive heart disease without heart failure; E78.5 Hyperlipidemia, unspecified; Z20.822 Contact with and (suspected) exposure to COVID-19; I49.3 Ventricular premature depolarization; I49.1 Atrial premature depolarization; M10.9 Gout, unspecified; R32 Unspecified urinary incontinence; K21.9 Gastro-esophageal reflux disease without esophagitis; G89.29 Other chronic pain; R77.8 Other specified abnormalities of plasma proteins; M51.35 Other intervertebral disc degeneration, thoracolumbar region; M47.817 Spondylosis without myelopathy or radiculopathy, lumbosacral region; M43.17 Spondylolisthesis, lumbosacral region; M25.70 Osteophyte, unspecified joint; M51.37 Other intervertebral disc degeneration, lumbosacral region; I08.1 Rheumatic disorders of both mitral and tricuspid valves; F40.240 Claustrophobia; V43.52XA Car driver injured in collision with other type car in traffic accident, initial encounter; Y92.410 Unspecified street and highway as the place of occurrence of the external cause; Z71.3 Dietary counseling and surveillance; Z79.899 Other long term (current) drug therapy; Z96.641 Presence of right artificial hip joint
CPT/HCPCS: 36410; 36415; 51702; 62270; 70450; 70496; 70498; 70553; 71045; 71046; 72100; 72125; 72156; 72170; 74177; 76937; 80048; 80053; 80061; 80143; 80179; 80185; 80202; 80306; 80320; 81001; 82140; 82550; 82803; 82945; 83036; 83605; 84132; 84145; 84157; 84443; 84484; 85025; 85027; 85610; 85730; 86140; 86592; 87040; 87070; 87086; 87205; 87252; 87496; 87498; 87529; 87635; 87798; 88108; 89050; 93005; 93306; 94760; 95816; 96361; 96374; 96375; 96376; 99285

== ENCOUNTER 2021-03-06 03:47 | Inpatient (IN) | payer MEDICARE ==
[2021-03-06] MEDS ORDERED: SODIUM CHLORIDE 0.9% 1,000 ML IV STA (04:35)
[2021-03-06] MEDS ORDERED: diphenhydrAMINE 50 MG/ML 1 ML VIAL IVP STA (04:44)
--- NOTE | 2021-03-06 05:15 | ED ---
General Adult HPI - General Chief complaint: Extremity Injury, Lower Stated complaint: Lt Leg Pain, High BP Time Seen by Provider: 03/06/21 04:01 Source: patient, EMS Mode of arrival: EMS - History of Present Illness Initial comments: This patient is 80-year-old woman who presents to be evaluated for left leg movements. The patient states that tonight while she was trying to sleep she noticed that her left leg was wanting to move of its own volition. She states that she is not able to control the movements there. She denies any pain. She complains of jerking movements mainly in the lower leg but also up to the hip sometimes. No previous history of this. No new medications. Onset/Timin -: hour(s) Location: left, lower extremity Radiation: non-radiation Consistency: constant Improves with: none Worsens with: none Associated Symptoms: denies other symptoms - Related Data Home Medications Medication Instructions Recorded Confirmed Allopurinol [Zyloprim] 300 mg PO DAILY 04/06/20 03/06/21 Esomeprazole Magnesium [NexIUM] 20 mg PO DAILY 04/06/20 03/06/21 Nebivolol HCl [Bystolic] 10 mg PO DAILY 04/06/20 03/06/21 Tolterodine ER [Detrol LA] 4 mg PO DAILY 03/06/21 03/06/21 Previous Rx's Medication Instructions Recorded Acetaminophen Tab [Tylenol] 650 mg PO Q6HR PRN tab 03/14/21 Aspirin 81 mg PO DAILY 03/14/21 Atorvastatin [Lipitor] 40 mg PO HS #30 tab 03/14/21 Clopidogrel [Plavix] 75 mg PO DAILY #30 tab 03/14/21 HYDROcodone/APAP 7.5-325MG [Stokes 1 tab PO Q6HR PRN #120 tab 03/14/21 7.5-325] Lidocaine 5% Patch [Lidoderm 5% 1 patch TOPICAL DAILY@1800 #30 03/14/21 Patch] patch Losartan [Cozaar] 25 mg PO DAILY #30 tab 03/14/21 Pantoprazole [Protonix] 40 mg PO AC-BRKFST #30 tab 03/14/21 guaiFENesin-DM 100-10MG/5ML 10 ml PO Q6HR PRN #200 ml 03/14/21 [Robitussin DM] rOPINIRole HCL [Requip] 0.25 mg PO BID PRN #60 tab 03/14/21 Allergies Allergy/AdvReac Type Severity Reaction Status Date / Time Penicillins Allergy Unknown Verified 03/06/21 09:34 Childhood Review of Systems ROS Statement: Those systems with pertinent positive or pertinent negative responses have been documented in the HPI. ROS Other: All systems not noted in ROS Statement are negative. Constitutional: Denies: fever, chills Respiratory: Denies: cough, dyspnea Cardiovascular: Denies: chest pain, palpitations, edema Gastrointestinal: Denies: abdominal pain, vomiting, diarrhea Genitourinary: Denies: dysuria, hematuria Musculoskeletal: Denies: back pain Skin: Denies: rash Neurological: Reports: as per HPI, other. Denies: headache, weakness, numbness Past Medical History Past Medical History: Hypertension Additional Past Medical History / Comment(s): Per pt's daughter, pt has no pertinent medical history. History of Any Multi-Drug Resistant Organisms: None Reported Past Surgical History: No Surgical Hx Reported Additional Past Surgical History / Comment(s): Per pt's daughter, the patient had her hip replaced in 2008. cataract repair, tubal ligation Past Anesthesia/Blood Transfusion Reactions: Unable to Obtain Past Psychological History: No Psychological Hx Reported, Unable to Obtain Smoking Status: Never smoker Past Alcohol Use History: None Reported Past Drug Use History: None Reported - Past Family History Mother Family Medical History: No Reported History Additional Family Medical History / Comment(s): Mother is 98yrs old. Father Additional Family Medical History / Comment(s): Father in an accident at the age of 55yrs. General Exam General appearance: alert, in no apparent distress Head exam: Present: atraumatic, normocephalic Eye exam: Present: normal appearance. Absent: scleral icterus, conjunctival injection Respiratory exam: Present: normal lung sounds bilaterally. Absent: respiratory distress, wheezes, rales, rhonchi, stridor Cardiovascular Exam: Present: regular rate, normal rhythm, normal heart sounds. Absent: systolic murmur, diastolic murmur, rubs, gallop GI/Abdominal exam: Present: soft. Absent: distended, tenderness, guarding, rebound, rigid Extremities exam: Present: normal inspection, normal capillary refill. Absent: pedal edema, calf tenderness Back exam: Present: normal inspection. Absent: CVA tenderness (R), CVA tende rness (L) Neurological exam: Present: alert, oriented X3, CN II-XII intact, other (Patient is having choreoathetoid movements of the left lower extremity.) Skin exam: Present: warm, dry, intact, normal color. Absent: rash Course Vital Signs 03/06/21 03/06/21 03/06/21 03:58 06:34 08:38 Temperature 97.4 F L 97.9 F Pulse Rate 82 91 89 Pulse Rate [ Pulse Oximetery ] Respiratory 22 16 20 Rate Blood Pressure 182/28 189/94 Blood Pressure [Right Arm] O2 Sat by Pulse 96 93 L 96 Oximetry 03/06/21 03/06/21 03/06/21 16:00 16:30 19:45 Temperature 97.3 F L Pulse Rate Pulse Rate [ 83 84 Pulse Oximetery ] Respiratory 20 Rate Blood Pressure Blood Pressure 181/100 148/90 [Right Arm] O2 Sat by Pulse 95 96 Oximetry EKG Findings - EKG Results: EKG: interpreted by ERMD, sinus rhythm (With premature SV complexes. Rate 82 bpm), normal axis - Blocks, [place], Hypertrophy, ST Abn: AV and intraventricular conduction: intraventricular conduction delay Repolarization changes or abnormalities: nonspecific abnormality, ST segment, and/or T wave Medical Decision Making - Lab Data Result diagrams: 03/14/21 03:34 03/14/21 10:14 Lab Results 03/06/21 03/06/21 03/06/21 Range/Units 05:07 05:07 05:07 WBC (3.8-10.6) k/uL RBC (3.80-5.40) m/uL Hgb (11.4-16.0) gm/dL Hct (34.0-46.0) % MCV (80.0-100.0) fL MCH (25.0-35.0) pg MCHC (31.0-37.0) g/dL RDW (11.5-15.5) % Plt Count (150-450) k/uL MPV Neutrophils % % Lymphocytes % % Monocytes % % Eosinophils % % Basophils % % Neutrophils # (1.3-7.7) k/uL Lymphocytes # (1.0-4.8) k/uL Monocytes # (0-1.0) k/uL Eosinophils # (0-0.7) k/uL Basophils # (0-0.2) k/uL PT (9.0-12.0) sec INR (<1.2) APTT (22.0-30.0) sec Sodium 139 (137-145) mmol/L Potassium 4.1 (3.5-5.1) mmol/L Chloride 108 H (98-107) mmol/L Carbon Dioxide 19 L (22-30) mmol/L Anion Gap 12 mmol/L BUN 20 H (7-17) mg/dL Creatinine 1.04 (0.52-1.04) mg/dL Est GFR (CKD-EPI)AfAm 60 (>60 ml/min/1.73 sqM) Est GFR (CKD-EPI)NonAf 52 (>60 ml/min/1.73 sqM) Glucose 138 H (74-99) mg/dL Estimated Ave Glu mg/dL Hemoglobin A1c (0.0-6.0) % Calcium 10.1 (8.4-10.2) mg/dL Total Bilirubin 0.7 (0.2-1.3) mg/dL AST 23 (14-36) U/L ALT 13 (4-34) U/L Alkaline Phosphatase 94 (38-126) U/L CK-MB (CK-2) 6.3 H (0.0-2.4) ng/mL Troponin I <0.012 (0.000-0.034) ng/mL Total Protein 8.3 H (6.3-8.2) g/dL Albumin 4.7 (3.5-5.0) g/dL Globulin g/dL Albumin/Globulin Ratio Triglycerides (0.00-149.00) mg/dL Cholesterol (0.00-200.00) mg/dL LDL Cholesterol, Calc (0.0-131.0) mg/dL VLDL Cholesterol, Calc (5.00-40.00) mg/dL HDL Cholesterol (40.00-60.00) mg/dL Cholesterol/HDL Ratio Ratio Vitamin B12 (200.0-944.0) pg/mL Folate (4.40-31.00) ng/mL Procalcitonin (0.02-0.09) ng/mL TSH (0.465-4.680) mIU/L Total T4 (4.5 - 10.9) ug/dL Free T4 (0.78-2.19) ng/dL Urine Color Colorless Urine Appearance Clear (Clear) Urine pH 6.5 (5.0-8.0) Ur Specific Jewett 1.008 (1.001-1.035) Urine Protein 1+ H (Negative) Urine Glucose (UA) Negative (Negative) Urine Ketones Negative (Negative) Urine Blood Small H (Negative) Urine Nitrite Negative (Negative) Urine Bilirubin Negative (Negative) Urine Urobilinogen <2.0 (<2.0) mg/dL Ur Leukocyte Esterase Moderate H (Negative) Urine RBC 3 (0-5) /hpf Urine WBC 17 H (0-5) /hpf Ur Squamous Epith Cells <1 (0-4) /hpf Urine Bacteria Rare H (None) /hpf Urine Mucus Rare H (None) /hpf Coronavirus (PCR) (Not Detectd) Hepatitis A IgM Ab (Nonreactive) Hep Bs Antigen (Nonreactive) Hep B Core IgM Ab (Nonreactive) Hep C IgG Ab (Nonreactive) 03/06/21 03/06/21 03/06/21 Range/Units 05:07 05:07 06:31 WBC 11.1 H (3.8-10.6) k/uL RBC 4.75 (3.80-5.40) m/uL Hgb 14.0 (11.4-16.0) gm/dL Hct 43.0 (34.0-46.0) % MCV 90.5 (80.0-100.0) fL MCH 29.5 (25.0-35.0) pg MCHC 32.6 (31.0-37.0) g/dL RDW 12.8 (11.5-15.5) % Plt Count 203 (150-450) k/uL MPV 7.4 Neutrophils % 85 % Lymphocytes % 10 % Monocytes % 3 % Eosinophils % 1 % Basophils % 0 % Neutrophils # 9.5 H (1.3-7.7) k/uL Lymphocytes # 1.1 (1.0-4.8) k/uL Monocytes # 0.3 (0-1.0) k/uL Eosinophils # 0.1 (0-0.7) k/uL Basophils # 0.0 (0-0.2) k/uL PT (9.0-12.0) sec INR (<1.2) APTT (22.0-30.0) sec Sodium (137-145) mmol/L Potassium (3.5-5.1) mmol/L Chloride (98-107) mmol/L Carbon Dioxide (22-30) mmol/L Anion Gap mmol/L BUN (7-17) mg/dL Creatinine (0.52-1.04) mg/dL Est GFR (CKD-EPI)AfAm (>60 ml/min/1.73 sqM) Est GFR (CKD-EPI)NonAf (>60 ml/min/1.73 sqM) Glucose (74-99) mg/dL Estimated Ave Glu mg/dL 120 Hemoglobin A1c 5.8 (0.0-6.0) % Calcium (8.4-10.2) mg/dL Total Bilirubin (0.2-1.3) mg/dL AST (14-36) U/L ALT (4-34) U/L Alkaline Phosphatase (38-126) U/L CK-MB (CK-2) (0.0-2.4) ng/mL Troponin I (0.000-0.034) ng/mL Total Protein (6.3-8.2) g/dL Albumin (3.5-5.0) g/dL Globulin g/dL Albumin/Globulin Ratio Triglycerides 187.00 H (0.00-149.00) mg/dL Cholesterol 235.00 H (0.00-200.00) mg/dL LDL Cholesterol, Calc 149.2 H (0.0-131.0) mg/dL VLDL Cholesterol, Calc 37.40 (5.00-40.00) mg/dL HDL Cholesterol 48.40 (40.00-60.00) mg/dL Cholesterol/HDL Ratio 4.86 Ratio Vitamin B12 956.0 H (200.0-944.0) pg/mL Folate 7.60 (4.40-31.00) ng/mL Procalcitonin (0.02-0.09) ng/mL TSH (0.465-4.680) mIU/L Total T4 (4.5 - 10.9) ug/dL Free T4 (0.78-2.19) ng/dL Urine Color Urine Appearance (Clear) Urine pH (5.0-8.0) Ur Specific [place] (1.001-1.035) Urine Protein (Negative) Urine Glucose (UA) (Negative) Urine Ketones (Negative) Urine Blood (Negative) Urine Nitrite (Negative) Urine Bilirubin (Negative) Urine Urobilinogen (<2.0) mg/dL Ur Leukocyte Esterase (Negative) Urine RBC (0-5) /hpf Urine WBC (0-5) /hpf Ur Squamous Epith Cells (0-4) /hpf Urine Bacteria (None) /hpf Urine Mucus (None) /hpf Coronavirus (PCR) (Not Detectd) Hepatitis A IgM Ab (Nonreactive) Hep Bs Antigen (Nonreactive) Hep B Core IgM Ab (Nonreactive) Hep C IgG Ab (Nonreactive) 03/06/21 03/06/21 03/08/21 Range/Units 06:31 09:18 03:55 WBC (3.8-10.6) k/uL RBC (3.80-5.40) m/uL Hgb (11.4-16.0) gm/dL Hct (34.0-46.0) % MCV (80.0-100.0) fL MCH (25.0-35.0) pg MCHC (31.0-37.0) g/dL RDW (11.5-15.5) % Plt Count (150-450) k/uL MPV Neutrophils % % Lymphocytes % % Monocytes % % Eosinophils % % Basophils % % Neutrophils # (1.3-7.7) k/uL Lymphocytes # (1.0-4.8) k/uL Monocytes # (0-1.0) k/uL Eosinophils # (0-0.7) k/uL Basophils # (0-0.2) k/uL PT 10.2 (9.0-12.0) sec INR 0.9 (<1.2) APTT 23.1 (22.0-30.0) sec Sodium 139 (137-145) mmol/L Potassium 4.0 (3.5-5.1) mmol/L Chloride 111 H (98-107) mmol/L Carbon Dioxide 19 L (22-30) mmol/L Anion Gap 9 mmol/L BUN 30 H (7-17) mg/dL Creatinine 1.10 H (0.52-1.04) mg/dL Est GFR (CKD-EPI)AfAm 55 (>60 ml/min/1.73 sqM) Est GFR (CKD-EPI)NonAf 48 (>60 ml/min/1.73 sqM) Glucose 99 (74-99) mg/dL Estimated Ave Glu mg/dL Hemoglobin A1c (0.0-6.0) % Calcium 9.3 (8.4-10.2) mg/dL Total Bilirubin 0.8 (0.2-1.3) mg/dL AST 208 H (14-36) U/L ALT 66 H (4-34) U/L Alkaline Phosphatase 61 (38-126) U/L CK-MB (CK-2) (0.0-2.4) ng/mL Troponin I (0.000-0.034) ng/mL Total Protein 6.3 (6.3-8.2) g/dL Albumin 3.4 L (3.5-5.0) g/dL Globulin 2.9 g/dL Albumin/Globulin Ratio 1.2 Triglycerides 134.00 (0.00-149.00) mg/dL Cholesterol 192.00 (0.00-200.00) mg/dL LDL Cholesterol, Calc 120.3 (0.0-131.0) mg/dL VLDL Cholesterol, Calc 26.80 (5.00-40.00) mg/dL HDL Cholesterol 44.90 (40.00-60.00) mg/dL Cholesterol/HDL Ratio 4.28 Ratio Vitamin B12 (200.0-944.0) pg/mL Folate (4.40-31.00) ng/mL Procalcitonin (0.02-0.09) ng/mL TSH 0.420 L (0.465-4.680) mIU/L Total T4 (4.5 - 10.9) ug/dL Free T4 1.16 (0.78-2.19) ng/dL Urine Color Urine Appearance (Clear) Urine pH (5.0-8.0) Ur Specific [place] (1.001-1.035) Urine Protein (Negative) Urine Glucose (UA) (Negative) Urine Ketones (Negative) Urine Blood (Negative) Urine Nitrite (Negative) Urine Bilirubin (Negative) Urine Urobilinogen (<2.0) mg/dL Ur Leukocyte Esterase (Negative) Urine RBC (0-5) /hpf Urine WBC (0-5) /hpf Ur Squamous Epith Cells (0-4) /hpf Urine Bacteria (None) /hpf Urine Mucus (None) /hpf Coronavirus (PCR) Not Detected (Not Detectd) Hepatitis A IgM Ab (Nonreactive) Hep Bs Antigen (Nonreactive) Hep B Core IgM Ab (Nonreactive) Hep C IgG Ab (Nonreactive) 03/08/21 03/08/21 03/08/21 Range/Units 04:00 04:00 04:00 WBC 11.0 H (3.8-10.6) k/uL RBC 4.43 (3.80-5.40) m/uL Hgb 13.1 (11.4-16.0) gm/dL Hct 40.7 (34.0-46.0) % MCV 92.0 (80.0-100.0) fL MCH 29.6 (25.0-35.0) pg MCHC 32.1 (31.0-37.0) g/dL RDW 12.9 (11.5-15.5) % Plt Count 186 (150-450) k/uL MPV 7.8 Neutrophils % % Lymphocytes % % Monocytes % % Eosinophils % % Basophils % % Neutrophils # (1.3-7.7) k/uL Lymphocytes # (1.0-4.8) k/uL Monocytes # (0-1.0) k/uL Eosinophils # (0-0.7) k/uL Basophils # (0-0.2) k/uL PT (9.0-12.0) sec INR (<1.2) APTT (22.0-30.0) sec Sodium (137-145) mmol/L Potassium (3.5-5.1) mmol/L Chloride (98-107) mmol/L Carbon Dioxide (22-30) mmol/L Anion Gap mmol/L BUN (7-17) mg/dL Creatinine (0.52-1.04) mg/dL Est GFR (CKD-EPI)AfAm (>60 ml/min/1.73 sqM) Est GFR (CKD-EPI)NonAf (>60 ml/min/1.73 sqM) Glucose (74-99) mg/dL Estimated Ave Glu mg/dL 123 Hemoglobin A1c 5.9 (0.0-6.0) % Calcium (8.4-10.2) mg/dL Total Bilirubin (0.2-1.3) mg/dL AST (14-36) U/L ALT (4-34) U/L Alkaline Phosphatase (38-126) U/L CK-MB (CK-2) (0.0-2.4) ng/mL Troponin I (0.000-0.034) ng/mL Total Protein (6.3-8.2) g/dL Albumin (3.5-5.0) g/dL Globulin g/dL Albumin/Globulin Ratio Triglycerides (0.00-149.00) mg/dL Cholesterol (0.00-200.00) mg/dL LDL Cholesterol, Calc (0.0-131.0) mg/dL VLDL Cholesterol, Calc (5.00-40.00) mg/dL HDL Cholesterol (40.00-60.00) mg/dL Cholesterol/HDL Ratio Ratio Vitamin B12 (200.0-944.0) pg/mL Folate (4.40-31.00) ng/mL Procalcitonin (0.02-0.09) ng/mL TSH (0.465-4.680) mIU/L Total T4 6.6 (4.5 - 10.9) ug/dL Free T4 (0.78-2.19) ng/dL Urine Color Urine Appearance (Clear) Urine pH (5.0-8.0) Ur Specific [place] (1.001-1.035) Urine Protein (Negative) Urine Glucose (UA) (Negative) Urine Ketones (Negative) Urine Blood (Negative) Urine Nitrite (Negative) Urine Bilirubin (Negative) Urine Urobilinogen (<2.0) mg/dL Ur Leukocyte Esterase (Negative) Urine RBC (0-5) /hpf Urine WBC (0-5) /hpf Ur Squamous Epith Cells (0-4) /hpf Urine Bacteria (None) /hpf Urine Mucus (None) /hpf Coronavirus (PCR) (Not Detectd) Hepatitis A IgM Ab (Nonreactive) Hep Bs Antigen (Nonreactive) Hep B Core IgM Ab (Nonreactive) Hep C IgG Ab (Nonreactive) 03/08/21 03/08/21 Range/Units 04:00 04:00 WBC (3.8-10.6) k/uL RBC (3.80-5.40) m/uL Hgb (11.4-16.0) gm/dL Hct (34.0-46.0) % MCV (80.0-100.0) fL MCH (25.0-35.0) pg MCHC (31.0-37.0) g/dL RDW (11.5-15.5) % Plt Count (150-450) k/uL MPV Neutrophils % % Lymphocytes % % Monocytes % % Eosinophils % % Basophils % % Neutrophils # (1.3-7.7) k/uL Lymphocytes # (1.0-4.8) k/uL Monocytes # (0-1.0) k/uL Eosinophils # (0-0.7) k/uL Basophils # (0-0.2) k/uL PT (9.0-12.0) sec INR (<1.2) APTT (22.0-30.0) sec Sodium (137-145) mmol/L Potassium (3.5-5.1) mmol/L Chloride (98-107) mmol/L Carbon Dioxide (22-30) mmol/L Anion Gap mmol/L BUN (7-17) mg/dL Creatinine (0.52-1.04) mg/dL Est GFR (CKD-EPI)AfAm (>60 ml/min/1.73 sqM) Est GFR (CKD-EPI)NonAf (>60 ml/min/1.73 sqM) Glucose (74-99) mg/dL Estimated Ave Glu mg/dL Hemoglobin A1c (0.0-6.0) % Calcium (8.4-10.2) mg/dL Total Bilirubin (0.2-1.3) mg/dL AST (14-36) U/L ALT (4-34) U/L Alkaline Phosphatase (38-126) U/L CK-MB (CK-2) (0.0-2.4) ng/mL Troponin I (0.000-0.034) ng/mL Total Protein (6.3-8.2) g/dL Albumin (3.5-5.0) g/dL Globulin g/dL Albumin/Globulin Ratio Triglycerides (0.00-149.00) mg/dL Cholesterol (0.00-200.00) mg/dL LDL Cholesterol, Calc (0.0-131.0) mg/dL VLDL Cholesterol, Calc (5.00-40.00) mg/dL HDL Cholesterol (40.00-60.00) mg/dL Cholesterol/HDL Ratio Ratio Vitamin B12 (200.0-944.0) pg/mL Folate (4.40-31.00) ng/mL Procalcitonin 0.05 (0.02-0.09) ng/mL TSH (0.465-4.680) mIU/L Total T4 (4.5 - 10.9) ug/dL Free T4 (0.78-2.19) ng/dL Urine Color Urine Appearance (Clear) Urine pH (5.0-8.0) Ur Specific [place] (1.001-1.035) Urine Protein (Negative) Urine Glucose (UA) (Negative) Urine Ketones (Negative) Urine Blood (Negative) Urine Nitrite (Negative) Urine Bilirubin (Negative) Urine Urobilinogen (<2.0) mg/dL Ur Leukocyte Esterase (Negative) Urine RBC (0-5) /hpf Urine WBC (0-5) /hpf Ur Squamous Epith Cells (0-4) /hpf Urine Bacteria (None) /hpf Urine Mucus (None) /hpf Coronavirus (PCR) (Not Detectd) Hepatitis A IgM Ab Nonreactive (Nonreactive) Hep Bs Antigen Nonreactive (Nonreactive) Hep B Core IgM Ab Nonreactive (Nonreactive) Hep C IgG Ab Nonreactive (Nonreactive) Disposition Clinical Impression: Choreoathetoid limb movements Disposition: ADMITTED IP TO THIS [facility] Condition: Stable
[2021-03-06 05:25] LABS: Appearance,Urine Clear (Clear); Bacteria,Urine Rare /hpf; Bilirubin,Urine Negative (Negative); Blood,Urine Small (Negative); Color,Urine Colorless; Glucose,Urine (UA) Negative (Negative); Ketones,Urine Negative (Negative); Leukocyte Esterase,Urine Moderate (Negative); Mucus,Urine Rare /hpf; Nitrite,Urine Negative (Negative); PH, Urine 6.5 (5.0-8.0); Protein,Urine 1+ (Negative); RBC,Urine 3 /hpf (0-5); Specific Gravity,Urine 1.008 (1.001-1.035); Squamous Epithelial Cell,Urine <1 /hpf (0-4); Urobilinogen,Urine <2.0 mg/dL (<2.0); WBC,Urine 17 /hpf (0-5)
[2021-03-06 05:34] LABS: Albumin 4.7 g/dL (3.5-5.0); Calcium 10.1 mg/dL (8.4-10.2); Potassium 4.1 mmol/L (3.5-5.1); Total Bilirubin 0.7 mg/dL (0.2-1.3); Total Protein 8.3 g/dL (6.3-8.2)
[2021-03-06] MEDS: LORazepam 2 MG/ML INJ IV STA ×2 (05:45→08:30)
--- NOTE | 2021-03-06 05:45 | CT ---
EXAM: CT Head Without Intravenous Contrast CLINICAL HISTORY: ITS.REASON CT Reason: Altered mental status TECHNIQUE: Axial computed tomography images of the head/brain without intravenous contrast. CTDI is 49.1 mGy and DLP is 1221 mGy-cm. This CT exam was performed using one or more of the following dose reduction techniques: automated exposure control, adjustment of the mA and/or kV according to patient size, and/or use of iterative reconstruction technique. COMPARISON: No relevant prior studies available. FINDINGS: Brain: Unremarkable. No hemorrhage. Moderate nonspecific white matter changes. No edema. Prominent pituitary gland. Ventricles: Unremarkable. No ventriculomegaly. Bones/joints: Unremarkable. No acute fracture. Soft tissues: Bilateral proptosis with proliferation of intraorbital fat. Bilateral lens replacements. Sinuses: Unremarkable as visualized. No acute sinusitis. Mastoid air cells: Unremarkable as visualized. No mastoid effusion. IMPRESSION: No evidence of acute intracranial pathology. Bilateral proptosis with proliferation of intraorbital fat, which can be seen with thyroid ophthalmopathy in the setting of Graves' disease. Prominent pituitary gland concerning for pituitary adenoma. Recommend brain MRI for further evaluation.
[2021-03-06 05:46] LABS: Creatine Kinase MB 6.3 ng/mL (0.0-2.4); Troponin I <0.012 ng/mL (0.000-0.034)
[2021-03-06 06:42] LABS: Basophils % (A) 0 %; Eosinophils # (A) 0.1 k/uL (0-0.7); Eosinophils % (A) 1 %; Lymphocytes # (A) 1.1 k/uL (1.0-4.8); Lymphocytes % (A) 10 %; MCH 29.5 pg (25.0-35.0); MCHC 32.6 g/dL (31.0-37.0); MCV 90.5 fL (80.0-100.0); Mean Platelet Volume 7.4; Monocytes # (A) 0.3 k/uL (0-1.0); Monocytes % (A) 3 %; Neutrophils # (A) 9.5 k/uL (1.3-7.7); Neutrophils % (A) 85 %; Platelet Count 203 k/uL (150-450); RBC 4.75 m/uL (3.80-5.40); RDW 12.8 % (11.5-15.5); WBC 11.1 k/uL (3.8-10.6)
[2021-03-06 07:05] LABS: INR 0.9 (<1.2); Partial Thromboplastin Time 23.1 sec (22.0-30.0); Prothrombin Time 10.2 sec (9.0-12.0)
[2021-03-06] MEDS ORDERED: NALOXONE 0.4 MG/ML 1 ML VIAL IV PRN (07:09)
[2021-03-06] MEDS ORDERED: IBUPROFEN 400 MG TAB PO PRN (07:20)
[2021-03-06] MEDS ORDERED: BENZTROPINE 2 MG/2 ML AMP IV STA (07:58)
[2021-03-06] MEDS: SODIUM CHLORIDE 0.9% 1,000 ML IV SCH (08:31)
[2021-03-06] MEDS ORDERED: LEVOFLOXACIN 500MG-D5W PMX 500 MG in DEXTROSE/WATER 1 100ML.BAG IVPB SCH (11:30)
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
--- NOTE | 2021-03-06 15:32 | XR ---
EXAMINATION TYPE: XR chest 1V portable DATE OF EXAM: 03/06/2021 HISTORY: Shortness of breath. COMPARISON: 04/11/2020 TECHNIQUE: Single view of the chest is submitted. FINDINGS: Demonstrated are scattered senescent parenchymal change. There is no evidence for focal infiltrate. The heart is stable. Hilar and mediastinal structures are within normal limits. Degenerative changes are seen of the dorsal spine. IMPRESSION: 1. Chronic changes without evidence for acute pulmonary disease.
[2021-03-06] MEDS ORDERED: ENALAPRILAT 1.25 MG/ML 1 ML VIAL IVP PRN (17:06)
[2021-03-06] MEDS ORDERED: LABETALOL 5 MG/ML VIAL MDV IVP PRN (19:45)
--- NOTE | 2021-03-06 19:48 | P.HPIM ---
History of Present Illness H&P Date: 03/06/21 Chief Complaint: Choreoathetoid movements. This is a history of physical 72-year-old white female with known history of hypertension who has had significant problems with left lower extremity choreoathetoid movements. She was given Ativan and Shanice has developed delirium since this. I appreciate neurology input. She is actually conversing properly but having significant movement disorder. There is mild UTI noted. No overt sepsis elements stated however hypertensive urgency is noted. The patient is nonsmoker Review of Systems Eyes: denies blurred vision, denies pain Ears, nose, mouth and throat: Denies headache, Denies sore throat Cardiovascular: Denies chest pain, Denies shortness of breath Respiratory: Denies cough Gastrointestinal: Denies abdominal pain, Denies diarrhea, Denies nausea, Denies vomiting Genitourinary: Reports as per HPI Past Medical History Past Medical History: Hypertension Additional Past Medical History / Comment(s): Per pt's daughter, pt has no pertinent medical history. History of Any Multi-Drug Resistant Organisms: None Reported Past Surgical History: No Surgical Hx Reported Additional Past Surgical History / Comment(s): Per pt's daughter, the patient had her hip replaced in 2008. cataract repair, tubal ligation Past Anesthesia/Blood Transfusion Reactions: Unable to Obtain Additional Past Anesthesia/Blood Transfusion Reaction / Comment(s): Sister's state pt is very sensitive to medications. Past Psychological History: No Psychological Hx Reported, Unable to Obtain Smoking Status: Never smoker Past Alcohol Use History: None Reported Past Drug Use History: None Reported - Past Family History Mother Family Medical History: No Reported History Additional Family Medical History / Comment(s): Mother is 98yrs old. Father Additional Family Medical History / Comment(s): Father in an accident at the age of 55yrs. Medications and Allergies Home Medications Medication Instructions Recorded Confirmed Type Allopurinol [Zyloprim] 300 mg PO DAILY 04/06/20 03/06/21 History Esomeprazole Magnesium [NexIUM] 20 mg PO DAILY 04/06/20 03/06/21 History Nebivolol HCl [Bystolic] 10 mg PO DAILY 04/06/20 03/06/21 History HYDROcodone/APAP 7.5-325MG [[place] 1 tab PO Q6HR PRN 03/06/21 03/06/21 History 7.5-325] Tolterodine ER [Detrol LA] 4 mg PO DAILY 03/06/21 03/06/21 History Allergies Allergy/AdvReac Type Severity Reaction Status Date / Time Penicillins Allergy Unknown Verified 03/06/21 09:34 Childhood Physical Exam Vitals: Vital Signs Temp Pulse Pulse Resp BP BP Pulse Ox 03/06/21 16:30 83 95 03/06/21 16:00 181/100 03/06/21 08:38 89 20 189/94 96 03/06/21 06:34 97.9 F 91 16 93 L 03/06/21 03:58 97.4 F L 82 22 182/28 96 Intake and Output 03/06/21 03/06/21 03/06/21 06:59 14:59 22:59 Output Total 1000 Balance -1000 Output: Urine 1000 Other: Voiding Method Indwelling Catheter Weight 83.915 kg 83.915 kg - Constitutional General appearance: obese - EENT Eyes: EOMI - Neck Neck: no lymphadenopathy - Respiratory Respiratory: bilateral: CTA - Cardiovascular Rhythm: regular Heart sounds: normal: S1, S2 Abnormal Heart Sounds: no S3 Gallop - Gastrointestinal General gastrointestinal: soft, no tenderness - Integumentary Integumentary: normal - Psychiatric Psychiatric: A&O x's 3 Results CBC & Chem 7: 03/06/21 06:31 03/06/21 05:07 Labs: Abnormal Lab Results - Last 24 Hours (Table) 03/06/21 03/06/21 03/06/21 Range/Units 05:07 05:07 05:07 WBC (3.8-10.6) k/uL Neutrophils # (1.3-7.7) k/uL Chloride 108 H (98-107) mmol/L Carbon Dioxide 19 L (22-30) mmol/L BUN 20 H (7-17) mg/dL Glucose 138 H (74-99) mg/dL CK-MB (CK-2) 6.3 H (0.0-2.4) ng/mL Total Protein 8.3 H (6.3-8.2) g/dL Urine Protein 1+ H (Negative) Urine Blood Small H (Negative) Ur Leukocyte Esterase Moderate H (Negative) Urine WBC 17 H (0-5) /hpf Urine Bacteria Rare H (None) /hpf Urine Mucus Rare H (None) /hpf 03/06/21 Range/Units 06:31 WBC 11.1 H (3.8-10.6) k/uL Neutrophils # 9.5 H (1.3-7.7) k/uL Chloride (98-107) mmol/L Carbon Dioxide (22-30) mmol/L BUN (7-17) mg/dL Glucose (74-99) mg/dL CK-MB (CK-2) (0.0-2.4) ng/mL Total Protein (6.3-8.2) g/dL Urine Protein (Negative) Urine Blood (Negative) Ur Leukocyte Esterase (Negative) Urine WBC (0-5) /hpf Urine Bacteria (None) /hpf Urine Mucus (None) /hpf Microbiology - Last 24 Hours (Table) 03/06/21 05:07 Urine Culture - Preliminary Urine,Voided Thrombosis Risk Factor Assmnt - Choose All That Apply Any of the Below Risk Factors Present?: Yes Each Factor Represents 1 point: Medical pt on bed rest, Obesity (BMI >25) Other Risk Factors: Yes Each Risk Factor Represents 2 Points: Patient confined to bed Each Risk Factor Represents 3 Points: Age 75 years or older Other congenital or acquired thrombophilia - If yes, enter type in comment: No Thrombosis Risk Factor Assessment Total Risk Factor Score: 7 Thrombosis Risk Factor Assessment Level: High Risk Assessment and Plan (1) Choreoathetoid limb movements Current Visit: Yes Status: Acute Code(s): G25.5 - OTHER CHOREA SNOMED Code(s): 63011165 (2) UTI (urinary tract infection) Current Visit: Yes Status: Acute Code(s): N39.0 - URINARY TRACT INFECTION, SITE NOT SPECIFIED SNOMED Code(s): 84059423 (3) Chronic low back pain Current Visit: No Status: Acute Code(s): M54.5 - LOW BACK PAIN * DO NOT USE *; G89.29 - OTHER CHRONIC PAIN SNOMED Code(s): 779966184 (4) DJD (degenerative joint disease), lumbosacral Current Visit: No Status: Acute Code(s): M47.817 - SPONDYLS W/O MYELOPATHY OR RADICULOPATHY, LUMBOSACR REGION SNOMED Code(s): 370767920 (5) Hypertension Current Visit: No Status: Acute Code(s): I10 - ESSENTIAL (PRIMARY) HYPERTENSION SNOMED Code(s): 44596585 Plan: Reconcile home medications as necessary. GI prophylaxis. Labetalol and enalaprilat ordered for blood pressure control. Check CMP in a.m. Appreciate neurology input.
[2021-03-06] MEDS ORDERED: ONDANSETRON 4 MG/2 ML VIAL IVP PRN (21:45)
[2021-03-06] MEDS: ACETAMINOPHEN TAB 325 MG TAB PO PRN (23:13)
[2021-03-06] MEDS ORDERED: HYDROcodone/APAP 7.5-325MG 1 EACH TAB PO PRN (23:21)
[2021-03-07] MEDS: SODIUM CHLORIDE 0.9% 1,000 ML IV SCH ×2 (00:40→12:29)
[2021-03-07] MEDS ORDERED: HYDROcodone/APAP 10-325MG 1 EACH TAB PO PRN (08:43)
--- NOTE | 2021-03-07 08:43 | P.PN ---
Subjective Progress Note Date: 03/07/21 Principal diagnosis: The patient is here essentially for choreoathetoid movements. She feels much better. There is slightly UTI. Appreciate neurology consultation. The patient is asking for slight increase in pain control No voiding difficulties Objective - Vital Signs Vital signs: Vital Signs Temp 98.9 F 03/07/21 02:26 Pulse 58 L 03/07/21 02:26 Resp 15 03/07/21 02:26 BP 120/85 03/07/21 02:26 Pulse Ox 93 L 03/07/21 02:26 Intake & Output 03/06/21 03/07/21 03/07/21 18:59 06:59 18:59 Output Total 1000 600 Balance -1000 -600 Weight 83.915 kg 83.915 kg Output: Urine 1000 600 Other: Voiding Method Indwelling Catheter Indwelling Catheter - Constitutional General appearance: Present: obese - EENT Eyes: Absent: abnormal pupil - Neck Neck: Absent: lymphadenopathy - Respiratory Respiratory: bilateral: CTA - Cardiovascular Rhythm: regular Heart sounds: normal: S1, S2 Abnormal Heart Sounds: Absent: S3 Gallop - Gastrointestinal General gastrointestinal: Present: soft. Absent: tenderness - Integumentary Integumentary: Present: normal. Absent: rash - Psychiatric Psychiatric: Present: A&O x's 3, appropriate affect - Labs CBC & Chem 7: 03/06/21 06:31 03/06/21 05:07 Labs: Microbiology - Last 24 Hours (Table) 03/06/21 05:07 Urine Culture - Preliminary Urine,Voided Assessment and Plan (1) Choreoathetoid limb movements Current Visit: Yes Status: Acute Code(s): G25.5 - OTHER CHOREA SNOMED Code(s): 77250508 (2) UTI (urinary tract infection) Current Visit: Yes Status: Acute Code(s): N39.0 - URINARY TRACT INFECTION, SITE NOT SPECIFIED SNOMED Code(s): 91798886 (3) Chronic low back pain Current Visit: No Status: Acute Code(s): M54.5 - LOW BACK PAIN * DO NOT USE *; G89.29 - OTHER CHRONIC PAIN SNOMED Code(s): 153349794 (4) DJD (degenerative joint disease), lumbosacral Current Visit: No Status: Acute Code(s): M47.817 - SPONDYLS W/O MYELOPATHY OR RADICULOPATHY, LUMBOSACR REGION SNOMED Code(s): 699751553 (5) Hypertension Current Visit: No Status: Acute Code(s): I10 - ESSENTIAL (PRIMARY) HYPERTE NSION SNOMED Code(s): 29895664 Plan: Reconcile home medications as necessary. GI prophylaxis. Labetalol and enalaprilat ordered for blood pressure control. Check CMP in a.m. Appreciate neurology input. Improved/decreased movement Dr. Anderson's group will be covering starting tomorrow.
[2021-03-07] MEDS ORDERED: PANTOPRAZOLE 40 MG/10 ML VIAL IVP SCH (09:00)
[2021-03-07] MEDS ORDERED: ASPIRIN 325 MG TAB PO SCH (10:30)
[2021-03-07] MEDS ORDERED: LEVOFLOXACIN 250MG-D5W PMX 250 MG in DEXTROSE/WATER 1 50ML.BAG IVPB SCH (11:00)
[2021-03-07] MEDS: allopurinoL 300 MG TAB PO SCH (12:18)
[2021-03-07] MEDS: NEBIVOLOL 5 MG TAB PO SCH (12:18)
[2021-03-07] MEDS: OXYBUTYNIN XL 5 MG TAB.ER.24 PO SCH (12:18)
[2021-03-07] MEDS: CLOPIDOGREL 75 MG TAB PO SCH (12:27)
[2021-03-07] MEDS: FAMOTIDINE 20 MG TAB PO SCH ×2 (12:27→21:48)
[2021-03-07] MEDS ORDERED: LEVOFLOXACIN 500 MG TAB PO SCH (14:00)
[2021-03-07 15:41] LABS: Chol/HDL Ratio 4.86 Ratio; LDL Cholesterol,Calculated 149.2 mg/dL (0.0-131.0)
--- NOTE | 2021-03-07 16:50 | EEG ---
ELECTROENCEPHALOGRAM REPORT DATE OF SERVICE: 03/07/2021 PREAMBLE: This is a 80-year-old female with new-onset left-sided choreoathetoid movement that has gotten worse, involving the whole body. This study is performed to evaluate for any epileptiform activity. EEG FINDINGS: This is a 21-channel digital EEG recording with video competent, utilizing 10/20 international system with referential and bipolar montages. Background consists of well-developed but somewhat disorganized mixed frequencies of normal 8-9 hertz alpha, intermixed with some disorganized theta activity in bihemispheric region. A lot of myogenic activity was seen, particularly in the frontal temporal region. Frequent movement artifacts were seen. Photic stimulation was not performed. Different stages of sleep were not seen. No definitive focal or generalized epileptiform activity was seen. IMPRESSION: This is a technically limited EEG due to significant myogenic and movement artifact during most of the study. However, the discernible part of the electroencephalogram revealed disorganized background with some mild intermittent slowing, suggestive of mild encephalopathy. No epileptiform activity was seen. MMLEROYL / AINSLEYN: [id number] /
[2021-03-07] MEDS ORDERED: ATORVASTATIN 20 MG TAB PO SCH (21:00)
--- NOTE | 2021-03-07 23:48 | P.PN ---
Subjective Progress Note Date: 03/07/21 Patient was seen for a follow-up. Patient's involuntary movements have much improved. She appears to have mild left hemiparesis noticed at this time. Patient denies headache or dizziness. Patient admits to smoking less than one pack per day for 37 years, quit 22 years ago. Patient is more lucid now. Objective - Vital Signs Vital signs: Vital Signs Temp 98.8 F 03/07/21 07:23 Pulse 72 03/07/21 07:23 Resp 17 03/07/21 07:23 BP 151/103 03/07/21 07:23 Pulse Ox 97 03/07/21 07:23 Intake & Output 03/06/21 03/07/21 03/07/21 18:59 06:59 18:59 Output Total 1000 600 Balance -1000 -600 Weight 83.915 kg 83.915 kg Output: Urine 1000 600 Other: Voiding Method Indwelling Catheter Indwelling Catheter Indwelling Catheter - Exam Patient is an elderly female in no distress. She is more lucid. Not as restless. Patient is alert awake. Speech and language functions are normal. Attention, concentration and fund of knowledge is adequate. Detailed testing deferred. On cranial examination, pupils are round and reacting to light, visual hernandez are full on confrontation, extraocular muscles are intact with no nystagmus. Patient has left facial asymmetry. Her tongue protrudes to the midline. Palatal elevation and sensation normal, hearing and shoulder shrug normal, facial sensation normal. Shoulder shrug normal. On muscle strength testing, there is left pronator drift. The arm hits the bed. Patient also had left leg drift and it hits the bed. Muscle strength is (right/left) deltoid 4/3, biceps 5/4, rehab physician 5/4, hip flexion 5/2, ankle dorsiflexion 5/4. Deep tendon reflexes are diminished and plantar is downgoing on the right, clearly up on the left. Sensory to touch is equal with no neglect. Cerebellar function showed no ataxia for ydchsy-rs-eiyl testing on the right. Tone and bulk of muscles normal. Gait not checked. On general examination, there is no carotid bruit or murmur, S1-S2 audible. Abdomen is soft nontender. Chest is clear. Peripheral pulses are present. No edema. - Labs CBC & Chem 7: 03/06/21 06:31 03/06/21 05:07 Labs: Microbiology - Last 24 Hours (Table) 03/06/21 05:07 Urine Culture - Final Urine,Voided Assessment and Plan Assessment: * Probable acute ischemic stroke, with mild to moderate left hemiparesis. * Hypertension, uncontrolled * Hyperlipidemia * X tobacco use * Obesity Plan: * Patient's mentation has much improved. Her choreoathetoid movements have much improved. It appears patient probably has an ischemic stroke with left hemip aresis. MRI of the brain was again recommended, but patient declined because of severe claustrophobia. Patient not able to tolerate benzodiazepine because of acute delirium. We will repeat computed tomography scan of the head in the morning to evaluate for any evolving stroke. * Patient started on aspirin 325 mg and Plavix 75 mg. We will change to aspirin 81 mg and Plavix 75 mg in the morning. * Start Lipitor 20 mg daily. * Patient on SCDs for DVT prophylaxis. * Pepcid 20 mg twice a day for gastric ulcer prophylaxis. * EEG was technically limited due to significant myogenic and movement artifact during most of the study. However during discernible part of the electrodes esophagram, revealed disorganized background with some mild intermittent slowing, suggestive of mild encephalopathy. No epileptiform activity was seen. * We will perform stroke workup including carotid Doppler, 2-D echo, hemoglobin A1c and fasting lipid panel. * Gradually control blood pressure. Avoid hypotension. * PT and OT * Avoid anticholinergics, sedatives at this time.
[2021-03-08] MEDS ORDERED: QUEtiapine 25 MG TAB PO SCH (01:00)
[2021-03-08] MEDS: SODIUM CHLORIDE 0.9% 1,000 ML IV SCH ×2 (01:12→18:13)
[2021-03-08 05:29] LABS: HCT 40.7 % (34.0-46.0); HGB 13.1 gm/dL (11.4-16.0); MCH 29.6 pg (25.0-35.0); MCHC 32.1 g/dL (31.0-37.0); Mean Platelet Volume 7.8; Platelet Count 186 k/uL (150-450); RBC 4.43 m/uL (3.80-5.40); RDW 12.9 % (11.5-15.5)
[2021-03-08 05:50] LABS: ALT 66 U/L (4-34); AST 208 U/L (14-36); African American GFR (CKD) 55 (>60 ml/min/1.73 sqM); Albumin 3.4 g/dL (3.5-5.0); Albumin/Globulin Ratio 1.2; Alkaline Phosphatase 61 U/L (38-126); Anion Gap 9 mmol/L; Blood Urea Nitrogen 30 mg/dL (7-17); Calcium 9.3 mg/dL (8.4-10.2); Carbon Dioxide 19 mmol/L (22-30); Chloride 111 mmol/L (98-107); Globulin 2.9 g/dL; Glucose 99 mg/dL (74-99); Non-African American GFR(CKD) 48 (>60 ml/min/1.73 sqM); Sodium 139 mmol/L (137-145); Total Bilirubin 0.8 mg/dL (0.2-1.3); Total Protein 6.3 g/dL (6.3-8.2)
[2021-03-08 06:06] LABS: T4, Free (Free Thyroxine) 1.16 ng/dL (0.78-2.19)
[2021-03-08] MEDS: PANTOPRAZOLE 40 MG TABLET PO SCH ×2 (08:56→12:45)
[2021-03-08] MEDS: allopurinoL 300 MG TAB PO SCH ×2 (08:56→12:45)
[2021-03-08] MEDS: OXYBUTYNIN XL 5 MG TAB.ER.24 PO SCH ×2 (08:56→12:45)
[2021-03-08] MEDS: CLOPIDOGREL 75 MG TAB PO SCH ×2 (08:56→12:45)
[2021-03-08] MEDS: NEBIVOLOL 5 MG TAB PO SCH ×2 (08:56→12:45)
[2021-03-08] MEDS: FAMOTIDINE 20 MG TAB PO SCH (08:56)
[2021-03-08] MEDS: ASPIRIN 81 MG PO SCH ×2 (08:56→12:45)
--- NOTE | 2021-03-08 10:12 | CT ---
EXAMINATION TYPE: CT brain wo con DATE OF EXAM: 03/08/2021 COMPARISON: CT brain 03/06/2021 HISTORY: Altered mental status, CVA CT DLP: 2400.4 mGycm Automated exposure control for dose reduction was used. Helical acquisition through the brain. FINDINGS: There is motion on the exam. Periventricular white matter shows patchy low attenuation. No evident he morrhage or hydrocephalus. Cerebral vascular calcifications are present. Calvarium is intact. Paranas al sinuses and mastoid air cells as visualized are within normal limits. Pituitary is stable. IMPRESSION: THERE IS ARTIFACT ON THE EXAM. AGE-RELATED CHANGES OF ATROPHY AND CHRONIC SMALL VESSEL ISCHEMIA AGAIN NOTED. CONSIDER MRI FOR BETTER EVALUATION INDICATED.
[2021-03-08 11:19] LABS: Chol/HDL Ratio 4.28 Ratio; LDL Cholesterol,Calculated 120.3 mg/dL (0.0-131.0)
--- NOTE | 2021-03-08 11:37 | ECHOF ---
Referral Reason:CVA MEASUREMENTS -------- HEIGHT: 165.1 cm WEIGHT: 83.9 kg BP: 169/96 IVSd: 1.5 cm (0.6 - 1.1) LVIDd: 6.5 cm (3.9 - 5.3) LVPWd: 1.6 cm (0.6 - 1.1) EDV(Teich): 216 ml IVSs: 1.9 cm LVIDs: 4.8 cm LVPWs: 2.4 cm %IVS Thck: 33 % ESV(Teich): 107 ml EF(Teich): 51 % %FS: 26 % SV(Teich): 110 ml LA Diam: 3.5 cm (2.7 - 3.8) RVIDd: 3.5 cm (< 3.3) LALs A4C: 5.9 cm LAAs A4C: 19.8 cm LAESV A-L A4C: 57 ml LAESV MOD A4C: 53 ml LALs A2C: 6.0 cm LAAs A2C: 17.6 cm LAESV A-L A2C: 44 ml LAESV MOD A2C: 42 ml LAESV(A-L): 51 ml LAESV Index (A-L): 26.36 ml/m HR_2Ch_Q: 84 bpm HR_4Ch_Q: 76 bpm LVVED_2Ch_Q: 113 ml LVVED_4Ch_Q: 140 ml LVVED_BiP_Q: 126 ml LVVES_2Ch_Q: 65 ml LVVES_4Ch_Q: 83 ml LVVES_BiP_Q: 74 ml LVEF_2Ch_Q: 43 % LVEF_4Ch_Q: 41 % LVEF_BiP_Q: 42 % LVSV_2Ch_Q: 48 ml LVSV_4Ch_Q: 57 ml LVSV_BiP_Q: 53 ml LVCO_2Ch_Q: 4.1 l/min LVCO_4Ch_Q: 4.4 l/min LVCO_BiP_Q: 4.4 l/min LVLs_2Ch_Q: 7.2 cm LVLs_4Ch_Q: 6.8 cm LVLd_2Ch_Q: 8.3 cm LVLd_4Ch_Q: 7.5 cm Ao Diam: 3.6 cm (2.0 - 3.7) AV Cusp: 2.2 cm (1.5 - 2.6) EPSS: 1.9 cm MV E Samuel: 0.63 m/s MV DecT: 402 ms MV Dec Aiken: 1.6 m/s MV A Samuel: 1.07 m/s MV E/A Ratio: 0.59 MV PHT: 117 ms AV Vmax: 1.76 m/s AV maxP.39 mmHg MV EF SLOPE: 27.77 mm/s (70 - 150) MV EXCURSION: 15.23 mm (> 18.000) FINDINGS -------- Sinus rhythm. This was a technically adequate study. The left ventricle is severely dilated. There is moderate concentric left ventricular hypertrophy. Overall left ventricular systolic function is moderately impaired with, an EF between 35 - 40 %. Basal inferior LV wall motion is hypokinetic. Basal inferoseptal LV wall motion is hypokinetic. The right ventricle is mildly enlarged. Normal LA size by volume 22+/-6 ml/m2. The right atrium is normal in size. Interatrial and interventricular septum intact. Trace to mild aortic regurgitation. Eufb-ut-djebelod mitral regurgitation is present. The tricuspid valve appears structurally normal. Unable to estimate RVSP due to inadequate TR jet s pectral doppler profile. Trace/mild (physiologic) pulmonic regurgitation. The ascending aorta is dilated measuring up to 43 mm. Normal inferior vena cava with normal inspiratory collapse consistent with estimated right atrial pre ssure of 5 mmHg. There is no pericardial effusion. CONCLUSIONS -------- 1. The left ventricle is severely dilated. 2. There is moderate concentric left ventricular hypertrophy. 3. Overall left ventricular systolic function is moderately impaired with, an EF between 35 - 40 %. 4. Basal inferior LV wall motion is hypokinetic. 5. Basal inferoseptal LV wall motion is hypokinetic. 6. The right ventricle is mildly enlarged. 7. Trace to mild aortic regurgitation. 8. Dcpy-sj-rnyhsyvh mitral regurgitation is present. 9. Trace/mild (physiologic) pulmonic regurgitation. 10. The ascending aorta is dilated measuring up to 43 mm. 11. There is no pericardial effusion. LAMP SHADE JOINER: Radha Hoyt RD
--- NOTE | 2021-03-08 11:44 | P.PN ---
Subjective Patient was in the hospital about one year ago also for mental status change with no clear etiology, that time lumbar puncture showed mildly elevated of protein but there was no evidence of infection. Patient with past medical history of hypertension presents with abnormal chorio-athetoid movements abn of the left side, but EEG was negative for epileptiform discharge. Patient currently on multiple seizure medication. However there was evidence of left sided weakness and stroke was suspected, however patient could not do an MRI because of severe claustrophobia, repeat CT of the brain from today showing chronic atrophic ischemic changes with no overt evidence of acute stroke. Today patient the morning was sleepy after she received Seroquel 25 mg every morning for the first time. Later on patient was hallucinating. Other think just mild leukocytosis, there were enzymes slightly elevated. Further workup of stroke is pending including carotid duplex, echocardiogram. Because of elevated liver enzymes will order a liver ultrasound and hepatitis panel. She remains on aspirin added to her home dose of Plavix. Discontinue Levaquin as her urine culture came back negative. And continue with gentle hydration There was some evidence of proptosis on imaging however PSA check today it was located 0.4 and normal free T4 at 1.1. Objective - Vital Signs Vital signs: Vital Signs Temp 98.3 F 03/08/21 08:00 Pulse 69 03/08/21 08:00 Resp 20 03/08/21 08:00 BP 159/105 03/08/21 08:00 Pulse Ox 95 03/08/21 01:10 Intake & Output 03/07/21 03/08/21 03/08/21 18:59 06:59 18:59 Output Total 975 Balance -975 Output: Urine 975 Other: Voiding Method Indwelling Catheter Indwelling Catheter - Exam GENERAL: The patient is sleepy and lethargic (received Seroquel at night HEENT: Pupils are round and equally reacting to light. EOMI. No scleral icterus. No conjunctival pallor. Normocephalic, atraumatic. No pharyngeal erythema. No thyromegaly. CARDIOVASCULAR: S1 and S2 present. No murmurs, rubs, or gallops. PULMONARY: Chest is clear to auscultation, no wheezing or crackles. ABDOMEN: Soft, nontender, nondistended, normoactive bowel sounds. No palpable organomegaly. MUSCULOSKELETAL: No joint swelling or deformity. EXTREMITIES: No cyanosis, clubbing, or pedal edema. NEUROLOGICAL: Gross neurological examination did not reveal any focal deficits. SKIN: No rashes. no petechiae. - Labs CBC & Chem 7: 03/08/21 04:00 03/08/21 03:55 Labs: Abnormal Lab Results - Last 24 Hours (Table) 03/06/21 03/08/21 03/08/21 Range/Units 05:07 03:55 04:00 WBC 11.0 H (3.8-10.6) k/uL Chloride 111 H (98-107) mmol/L Carbon Dioxide 19 L (22-30) mmol/L BUN 30 H (7-17) mg/dL Creatinine 1.10 H (0.52-1.04) mg/dL AST 208 H (14-36) U/L ALT 66 H (4-34) U/L Albumin 3.4 L (3.5-5.0) g/dL Triglycerides 187.00 H (0.00-149.00) mg/dL Cholesterol 235.00 H (0.00-200.00) mg/dL LDL Cholesterol, Calc 149.2 H (0.0-131.0) mg/dL Vitamin B12 956.0 H (200.0-944.0) pg/mL TSH 0.420 L (0.465-4.680) mIU/L Microbiology - Last 24 Hours (Table) 03/06/21 12:44 Blood Culture - Preliminary Blood No Growth after 24 hours 03/06/21 05:07 Urine Culture - Final Urine,Voided Assessment and Plan Assessment: Left sided weakness suspicious for acute stroke Hallucination and delirium, rule out psychosis Asymptomatic bacteriuria with negative urine culture. No need for antibiotic Hypertension Chronic kidney disease, stage III Plan: This is a pleasant 81 years old female who presents with possible stroke, left- sided weakness, chorio-athetoid movements Continue with aspirin and Plavix per neurology service will follow the patient closely Follow-up further workup including carotid duplex, echocardiogram Monitor liver enzymes and follow-up liver ultrasound and hepatitis panel Continue gentle hydration Psych consult Labs and medication were reviewed.. Continue same treatment. Continue with symptomatic treatment. Resume home medication. Monitor lytes and vitals. DVT and GI prophylaxis. Further recommendationsas per clinical course of the patient DVT prophylaxis: Already on aspirin and Plavix GI Prophylaxis: Ppi PT/OT: Pending Prognosis is guarded
[2021-03-08] MEDS ORDERED: amLODIPine 2.5 MG TAB PO SCH (11:45)
--- NOTE | 2021-03-08 13:06 | US ---
EXAMINATION TYPE: US liver DATE OF EXAM: 03/08/2021 COMPARISON: CT 04/06/2020 CLINICAL HISTORY: elevated liver enz. Hx of cholecystectomy; elevated LFTs EXAM MEASUREMENTS: Liver Length: 15.7 cm Gallbladder Wall: Surgically absent CBD: 0.78 cm Right Kidney: 11.8 x 5.0 x 4.4 cm Pancreas: Obscured by bowel gas Liver: Increased attenuation; Gallbladder: Surgically absent CBD: Appears wnl for post cholecystectomy changes Right Kidney: Loss of corticomedullary differentiation; multiple probable cysts seen. Difficult exam due to constant patient movement and jerking IMPRESSION: 1. Normal right upper quadrant ultrasound as visualized. 2. There is some limitation due to patient level of cooperation during this exam.
[2021-03-08] MEDS: amLODIPine 5 MG TAB PO SCH (13:14)
--- NOTE | 2021-03-08 14:51 | P.CN ---
Psychiatric Consult - . Consult date: 03/08/21 Consult:: 03/08/21 13:40 IDENTIFYING DATA: This patient is a 81-year-old female, currently lives with her granddaughter who has cerebral palsy at home. She lives in a house. She has 5 kids of her own. She is . REASON FOR REFERRAL: Psychiatry was consulted for "acute delirium and hallucinations". HISTORY OF PRESENT ILLNESS: The patient presented to the hospital on complaining of restless leg movements during her sleep. Patient was also complaining of hemiparesis on her left side. AST and ALT were elevated. TSH was 0.420. Urinalysis was positive for infection. Computed tomography scan of patient's brain showed chronic atrophy changes, no acute changes seen. Patient has been refusing MRI apparently to rule out stroke. Neurology has been following for the left-sided hemiparesis. Patient's nurse claims that patient has been a note 3 however has made bizarre statements and believes that she was not in the hospital this morning. She believed that she was in a hotel apparently. Apparently patient was very lethargic this morning from the Seroquel last night given to her. Patient was seen and agreeable to speak to job specification writer. She was directable and appropriate. She had fair concentration. She claims that she had a sudden onset of left sided leg problems and claims that "I was unable to control it". She states that it is 03/08/2021 and she knows that she is in [facility]. She knows her full name. She denies any depression today. She claims that she is feeling overwhelmed while being in the hospital however. She claims that her sleep has been fair. She states that her in late December of this past year. She is denying any current hallucinations or paranoia. At this time patient denies any suicidal or homical ideations, intent or plan. Patient denies any auditory, visual hallucinations and denies any paranoia or delusions. Patients admits to using no recreational drugs or cigarettes. PAST PSYCHIATRIC HISTORY: Patient has no significant psychiatric history. Patient denies being on any psychiatric medications. Patient denies any previous psychiatric hospitalizations. Patient denies any psychiatric outpatient follow- up. Patient denies any history of suicide attempts in the past. Past Medical History: Hypertension Additional Past Medical History / Comment(s): Per pt's daughter, pt has no pertinent medical history. ALLERGIES: as per EMR. CHEMICAL DEPENDENCY HISTORY: as per HPI. FAMILY PSYCHIATRIC/SUBSTANCE USE HISTORY: denies SOCIAL HISTORY: Patient was born and raised in [place]. She states that she completed high school. 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 She claims that she does not have any legal problems she has 5 children. She has 1 granddaughter who has cerebral palsy who she visits in a house. She is currently MENTAL STATUS EXAM: General Appearance: Patient appears to have short hair, be stated age is alert, pleasant, and attempts to be cooperative. Patient appears to have fair hygiene and grooming wearing hospital gown with fair eye contact. Behavior: Patient is calmly lying in bed without any agitated behavior. Fair concentration. Attempts to cooperate Speech: Patient's speech is fluent and nonpressured. Mood/Affect: Patient reports their mood is "overwhelmed", affect is congruent Suicidality/Homicidality: Patient denies having any suicidal or homicidal ideation intent or plan. Perceptions: Patient denies any visual hallucinations and denies any auditory hallucinations Though content/process: There is no evidence of any delusional thought content and thought process is linear and goal-directed. concrete Memory and concentration: AOX3, grossly intact for the purposes of this session. Can spell "WORLD" backwards Judgment and insight: fair IMPRESSIONS: Delirium, likely secondary to infection and possibly medications including benzodiazepines Possible restless leg syndrome PLAN: -At this time patient DOES NOT meet criteria for inpatient psychiatric admission. -Delirium precautions recommended with patient including - avoiding use of narcotics and BOAT DESIGNER sedatives, limit anticholinergic medications when possible, frequent re-orientation, minimize use of restraints, open window shades during the day and close them at night -Would recommend the following medication changes/additions: Please avoid benzodiazepines and opiates whenever possible as this will worsen patient's delirium. Patient appears to have improving delirium according to nurse and ER/medical documentation. Patient had excessive sedation with Seroquel, discontinued at this time and replaced with Risperdal by mouth 0.25 mg daily at bedtime. Added Requip 0.25 mg twice a day when necessary for restless leg symptoms. -playground worker to provide patient with outpatient mental health/psychiatry resources for appropriate follow up upon discharge -Communicated plan to patient's nurse -Will continue to follow along -Please contact with any questions. 03/08/21 14:45
[2021-03-08] MEDS ORDERED: amLODIPine 5 MG TAB PO STA (21:55)
[2021-03-08] MEDS: ATORVASTATIN 40 MG TAB PO SCH (21:59)
[2021-03-08] MEDS: risperiDONE 0.25 MG TAB PO SCH (21:59)
[2021-03-09 01:46] LABS: Hepatitis A Antibody IgM Nonreactive (Nonreactive); Hepatitis B Core IgM Nonreactive (Nonreactive); Hepatitis B Surface Antigen Nonreactive (Nonreactive); Hepatitis C IgG Antibody Nonreactive (Nonreactive)
[2021-03-09] MEDS: SODIUM CHLORIDE 0.9% 1,000 ML IV SCH ×2 (05:27→17:30)
[2021-03-09] MEDS: ASPIRIN 81 MG PO SCH (08:03)
[2021-03-09] MEDS: PANTOPRAZOLE 40 MG TABLET PO SCH (08:03)
[2021-03-09] MEDS: allopurinoL 300 MG TAB PO SCH (08:03)
[2021-03-09] MEDS: amLODIPine 5 MG TAB PO SCH (08:03)
[2021-03-09] MEDS: NEBIVOLOL 5 MG TAB PO SCH (08:04)
[2021-03-09] MEDS: CLOPIDOGREL 75 MG TAB PO SCH (08:04)
[2021-03-09] MEDS: OXYBUTYNIN XL 5 MG TAB.ER.24 PO SCH (08:04)
[2021-03-09 09:08] LABS: Basophils # (A) 0.02 X 10*3/uL (0.00-0.10); Basophils % (A) 0.2 %; Eosinophils # (A) 0.02 X 10*3/uL (0.04-0.35); Eosinophils % (A) 0.2 %; HCT 44.9 % (37.2-46.3); HGB 14.5 g/dL (12.0-15.0); Immature Grans, Automated 0.5 %; Lymphocytes # (A) 0.87 X 10*3/uL (0.90-5.00); Lymphocytes % (A) 6.8 %; MCH 28.9 pg (27.0-32.0); MCHC 32.3 g/dL (32.0-37.0); MCV 89.6 fL (80.0-97.0); Mean Platelet Volume 10.8 fL (9.5-12.2); Monocytes # (A) 1.24 X 10*3/uL (0.20-1.00); Monocytes % (A) 9.7 %; NRBC Per 100 WBC 0 /100 WBCS (0.0-0.0); Neutrophils # (A) 10.63 X 10*3/uL (1.80-7.70); Neutrophils % (A) 82.6 %; Platelet Count 217 X 10*3/uL (140-440); RBC 5.01 X 10*6/uL (4.10-5.20); RDW 12.7 % (11.5-14.5); WBC 12.84 X 10*3/uL (4.50-10.00)
[2021-03-09 09:13] LABS: African American GFR (CKD) 70.5 (60.0-200.0); Albumin/Globulin Ratio 1.6 (1.60-3.17); Anion Gap 17.7 mmol/L (10.00-18.00); BUN/Creat Ratio 25.56 Ratio (12.00-20.00); Calcium 9.7 mg/dL (8.7-10.3); Carbon Dioxide 17.3 mmol/L (20.0-27.5); Globulin 2.5 g/dL (1.6-3.3); Non-African American GFR(CKD) 60.8 (60.0-200.0); Potassium 3.6 mmol/L (3.5-5.5); Total Bilirubin 0.7 mg/dL (0.30-1.20); Total Protein 6.5 g/dL (6.2-8.2)
--- NOTE | 2021-03-09 09:58 | P.PN ---
Subjective Progress Note Date: 03/08/21 Patient was seen for a follow-up. Patient's nurses called me last night the patient was agitated, restless, hallucinating. I gave her Seroquel 25 mg at bedtime. This morning the nurse called that she is sleeping too much. I came to see the patient at around 1:30 PM and patient is fully alert and awake. Patient continues to have left hemiparesis. Her blood pressure is 170/110. Patient's involuntary movements have much improved. She appears to have mild left hemiparesis noticed at this time. Patient denies headache or dizziness. Patient admits to smoking less than one pack per day for 37 years, quit 22 years ago. Patient is more lucid now. Objective - Vital Signs Vital signs: Vital Signs Temp 98.3 F 03/08/21 08:00 Pulse 69 03/08/21 08:00 Resp 20 03/08/21 08:00 BP 159/105 03/08/21 08:00 Pulse Ox 95 03/08/21 01:10 Intake & Output 03/07/21 03/08/21 03/08/21 18:59 06:59 18:59 Output Total 975 Balance -975 Output: Urine 975 Other: Voiding Method Indwelling Catheter Indwelling Catheter Indwelling Catheter - Exam Patient is an elderly female in no distress. She is more lucid. Not as restless. Patient is alert awake. Speech is mildly dysarthric, no aphasia. Patient can name and repeat. Attention, concentration and fund of knowledge is adequate. Detailed testing deferred. On cranial examination, pupils are round and reacting to light, visual hernandez are full on confrontation, extraocular muscles are intact with no nystagmus. Patient has left facial asymmetry. Her tongue protrudes to the midline. [place] ever elevation and sensation normal, hearing and shoulder shrug normal, facial sensation normal. Shoulder shrug normal. On muscle strength testing, there is left pronator drift. The arm hits the bed. Patient also had left leg drift and it hits the bed. Muscle strength is (right/left) deltoid 4/3, biceps 5/4, director adult 5/4, hip flexion 5/2, ankle dorsiflexion 5/4. Deep tendon reflexes are diminished and plantar is downgoing on the right, clearly up on the left. Sensory to touch is equal with no neglect on double simultaneous stimulation. Cerebellar function showed no ataxia for dccvmr-um-afsu testing on the right. Patient has difficulty performing etdscl-hc-iysq on the left. Fine motor si gnificantly decreased on the left. Tone and bulk of muscles normal. Gait not checked. On general examination, there is no carotid bruit or murmur, S1-S2 audible. Abdomen is soft nontender. Chest is clear. Peripheral pulses are present. No edema. - Labs CBC & Chem 7: 03/09/21 04:12 03/09/21 04:12 Labs: Abnormal Lab Results - Last 24 Hours (Table) 03/06/21 03/08/21 03/08/21 Range/Units 05:07 03:55 04:00 WBC 11.0 H (3.8-10.6) k/uL Chloride 111 H (98-107) mmol/L Carbon Dioxide 19 L (22-30) mmol/L BUN 30 H (7-17) mg/dL Creatinine 1.10 H (0.52-1.04) mg/dL AST 208 H (14-36) U/L ALT 66 H (4-34) U/L Albumin 3.4 L (3.5-5.0) g/dL Triglycerides 187.00 H (0.00-149.00) mg/dL Cholesterol 235.00 H (0.00-200.00) mg/dL LDL Cholesterol, Calc 149.2 H (0.0-131.0) mg/dL Vitamin B12 956.0 H (200.0-944.0) pg/mL TSH 0.420 L (0.465-4.680) mIU/L Microbiology - Last 24 Hours (Table) 03/06/21 12:44 Blood Culture - Preliminary Blood No Growth after 24 hours 03/06/21 05:07 Urine Culture - Final Urine,Voided Assessment and Plan Assessment: * Probable acute ischemic stroke, with mild to moderate left hemiparesis. Repeat computed tomography scan of the head showed no acute process. No acute ischemia. * Hypertension, uncontrolled * Hyperlipidemia * X tobacco use * Obesity Plan: * Computed tomography scan of head revealed artifact on the exam. Age-related changes of atrophy and chronic small vessel ischemia again noted. Consider MRI for better evaluation as indicated. I personally reviewed computed tomography scan of the head. No evidence of an acute stroke noted on the computed tomography scan. No changes compared to the previous computed tomography scan. * Continue aspirin 81 mg and Plavix 75 mg. * Lipid panel with cholesterol 192, LDL 120, HDL 44 and triglycerides 134. Continue Lipitor 20 mg daily. * Hemoglobin A1c 5.9. * 2-D echo revealed left ventricle is severely dilated. Moderate concentric LVH. Left ventricle systolic function is moderately impaired with EF between 35-40%. Basal inferior, basal inferior septal left-ventricular wall motion is hypokinetic. Ascending aorta is dilated measuring up to 43 mm. IM to address abnormal echo. Consider cardiology consult. * Carotid Doppler pending. * Patient's hepatic panel has gone up with AST 208, ALT 66. Uncertain if related to statins. Discussed with Dr. Salazar. Mentioned that he will closely watch the liver functions. Hepatitis panel negative. * Patient on SCDs for DVT prophylaxis. * Pepcid 20 mg twice a day for gastric ulcer prophylaxis. * EEG was technically limited due to significant myogenic and movement artifact during most of the study. However during discernible part of the electrodes esophagram, revealed disorganized background with some mild intermittent slowing, suggestive of mild encephalopathy. No epileptiform activity was seen. * Gradually control blood pressure. Avoid hypotension. * PT and OT * Avoid anticholinergics, sedatives at this time.
--- NOTE | 2021-03-09 10:53 | XR ---
EXAMINATION TYPE: XR chest 1V DATE OF EXAM: 03/09/2021 COMPARISON: 03/06/2021 HISTORY: Fever TECHNIQUE: Single frontal view of the chest is obtained. FINDINGS: There is no focal air space opacity, pleural effusion, or pneumothorax seen. The cardiac silhouette size is within normal limits. The osseous structures are intact. IMPRESSION: No acute process.
--- NOTE | 2021-03-09 11:29 | P.PN ---
Progress Note - Text Progress Note Date: 03/09/21 Patient has no significant psychiatric history. Patient denies being on any psychiatric medications. This patient continues to be lethargic and confused. I met with her and she is still disoriented and possibly in a delirious state. She was seen yesterday by the psychiatrist and does not have any acute psychiatric needs. Recommendations: Continue medical management as before. She does not meet the criteria for psychiatric hospitalization.
[2021-03-09] MEDS ORDERED: QUEtiapine 25 MG TAB PO STA (12:52)
--- NOTE | 2021-03-09 13:30 | XR ---
Left hand. HISTORY: Pain swelling. Comparison none. Technique 4 views left hand were obtained. There is diffuse osteopenia. There is diffuse mild to moderate narrowing of the PIP and DIP joints as well as the first carpometac arpal joint consistent with mild to moderate osteophytic change. There are no bony erosions or focal intraosseous abnormality. There is no acute fracture or dislocation. There is no radiopaque foreign b renetta or abnormal soft tissue calcification. IMPRESSION: 1. No evidence of acute trauma. 2. Osteoarthritic changes as described above.
--- NOTE | 2021-03-09 14:24 | MR ---
MRI brain without contrast. HISTORY: CVA COMPARISON: None. TECHNIQUE: Multiecho multiplanar images the brain were obtained without contrast. FINDINGS: The ventricles, basal cisterns and sulci over the convexities are moderately enlarged consistent with moderate atrophy appropriate for the patient's age. There is moderate multifocal abnormal signal intensity in the deep periventricular white matter both cerebral hemispheres consistent with chronic ischemic white matter demyelination. Based on diffusion-weighted imaging there is a focal area diffusion restriction in indicating an acut e ischemic event in the yaneth just to the right of midline. The intraorbital contents appear normal and symmetric. Visualized paranasal sinuses and mastoid air c ells are well aerated. IMPRESSION: Acute infarct involving the yaneth as described above. 2. Moderate chronic ischemic white matter change. 3. Moderate atrophy appropriate for the patient's age. 4. No mass, mass effect or shift of midline structure.
[2021-03-09 14:29] LABS: Appearance,Urine Cloudy (Clear); Bilirubin,Urine 1+ (Negative); Blood,Urine Large (Negative); Color,Urine Yellow; Glucose,Urine (UA) Trace (Negative); Ketones,Urine 3+ (Negative); Leukocyte Esterase,Urine Large (Negative); Mucus,Urine Moderate /hpf; Nitrite,Urine Negative (Negative); Protein,Urine 2+ (Negative); RBC,Urine 46 /hpf (0-5); Specific Gravity,Urine 1.027 (1.001-1.035); Squamous Epithelial Cell,Urine 1 /hpf (0-4); WBC,Urine 88 /hpf (0-5)
--- NOTE | 2021-03-09 15:35 | P.PN ---
Subjective Patient was in the hospital about one year ago also for mental status change with no clear etiology, that time lumbar puncture showed mildly elevated of protein but there was no evidence of infection. Patient with past medical history of hypertension presents with abnormal chorio-athetoid movements abn of the left side, but EEG was negative for epileptiform discharge. Patient currently on multiple seizure medication. However there was evidence of left sided weakness and stroke was suspected, however patient could not do an MRI because of severe claustrophobia, repeat CT of the brain from today showing chronic atrophic ischemic changes with no overt evidence of acute stroke. Today patient the morning was sleepy after she received Seroquel 25 mg every morning for the first time. Later on patient was hallucinating. Other think just mild leukocytosis, there were enzymes slightly elevated. Further workup of stroke is pending including carotid duplex, echocardiogram. Because of elevated liver enzymes will order a liver ultrasound and hepatitis panel. She remains on aspirin added to her home dose of Plavix. Discontinue Levaquin as her urine culture came back negative. And continue with gentle hydration There was some evidence of proptosis on imaging however PSA check today it was located 0.4 and normal free T4 at 1.1. 03/09/2021 Patient is significantly confused this morning, she A cup with verbal stimulus partially but goes back to sleep right away. Her left arm is kept in a flexed position as well as her left leg, she refuses to try to passively move her right upper extremity as if she is in pain, it looks warm but there is no erythema to suggest cellulitis significantly. However she had low-grade fever of 99.7 at mild leukocytosis of 12.8, repeat septic workup shows evidence of UTI and she was started on Rocephin, also we will change her Staples catheter. Her liver enzymes are trending down which is good while she is on Lipitor. MRI of the brain done today showing acute infarct of the yaneth. Neurology serv ice on the case. She is currently on aspirin 81 mg and Plavix. Objective - Vital Signs Vital signs: Vital Signs Temp 97.9 F 03/09/21 07:35 Pulse 70 03/09/21 07:35 Resp 18 03/09/21 08:00 BP 167/87 03/09/21 07:35 Pulse Ox 95 03/09/21 07:35 Intake & Output 03/08/21 03/09/21 03/09/21 18:59 06:59 18:59 Output Total 750 600 Balance -750 -600 Output: Urine 750 600 Other: Voiding Method Indwelling Catheter Indwelling Catheter Indwelling Catheter # Bowel Movements 1 - Exam -GENERAL: The patient is confused HEENT: Pupils are round and equally reacting to light. EOMI. No scleral icterus. No conjunctival pallor. Normocephalic, atraumatic. No pharyngeal erythema. No thyromegaly. CARDIOVASCULAR: S1 and S2 present. No murmurs, rubs, or gallops. PULMONARY: Chest is clear to auscultation, no wheezing or crackles. ABDOMEN: Soft, nontender, nondistended, normoactive bowel sounds. No palpable organomegaly. MUSCULOSKELETAL: No joint swelling or deformity. EXTREMITIES: No cyanosis, clubbing, or pedal edema. NEUROLOGICAL: Gross neurological examination did not reveal any focal deficits. SKIN: No rashes. no petechiae. - Labs CBC & Chem 7: 03/09/21 04:12 03/09/21 04:12 Labs: Abnormal Lab Results - Last 24 Hours (Table) 03/09/21 03/09/21 Range/Units 04:12 04:12 WBC 12.84 H (4.50-10.00) X 10*3/uL Immature Gran # 0.06 H (0.00-0.04) X 10*3/uL Neutrophils # 10.63 H (1.80-7.70) X 10*3/uL Lymphocytes # 0.87 L (0.90-5.00) X 10*3/uL Monocytes # 1.24 H (0.20-1.00) X 10*3/uL Eosinophils # 0.02 L (0.04-0.35) X 10*3/uL Carbon Dioxide 17.3 L (20.0-27.5) mmol/L BUN/Creatinine Ratio 25.56 H (12.00-20.00) Ratio AST 147 H (13-35) U/L ALT 72 H (8-44) U/L Microbiology - Last 24 Hours (Table) 03/06/21 12:44 Blood Culture - Preliminary Blood No Growth after 48 hours Assessment and Plan Assessment: Left sided weakness suspicious for acute stroke. 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 Continue same treatment. Continue with symptomatic treatment. Resume home medication. Monitor lytes and vitals. DVT and GI prophylaxis. Further recommendationsas per clinical course of the patient DVT prophylaxis: Already on aspirin and Plavix GI Prophylaxis: Ppi PT/OT: Pending Prognosis is guarded
--- NOTE | 2021-03-09 17:05 | P.PN ---
Subjective Progress Note Date: 03/09/21 This is a Tele-neurology followup performed today on 03/09/2021. Patient has not improved. Continues to be left hemiparetic. Patient denies any headache. Appears slightly short of breath. Patient complaining of significant pain in the left hand. It looks swollen at the wrist. No IV infiltration. Patient's involuntary movements have much improved. She appears to have mild left hemiparesis noticed at this time. Patient denies headache or dizziness. Patient admits to smoking less than one pack per day for 37 years, quit 22 years ago. Objective - Vital Signs Vital signs: Vital Signs Temp 97.9 F 03/09/21 07:35 Pulse 70 03/09/21 07:35 Resp 18 03/09/21 08:00 BP 167/87 03/09/21 07:35 Pulse Ox 95 03/09/21 07:35 Intake & Output 03/08/21 03/09/21 03/09/21 18:59 06:59 18:59 Output Total 750 600 Balance -750 -600 Output: Urine 750 600 Other: Voiding Method Indwelling Catheter Indwelling Catheter Indwelling Catheter # Bowel Movements 1 - Exam Patient is an elderly female in no distress. She is more lucid. Not as restless. Patient is alert awake. Speech is mildly dysarthric, no aphasia. Patient can name and repeat. Attention, concentration and fund of knowledge is adequate. Detailed testing deferred. Patient continues to have significant left hemiparesis including face arm and leg. Sensations are equal. No ataxia in the right, cannot perform on the left. - Labs CBC & Chem 7: 03/09/21 04:12 03/09/21 04:12 Labs: Abnormal Lab Results - Last 24 Hours (Table) 03/09/21 03/09/21 Range/Units 04:12 04:12 WBC 12.84 H (4.50-10.00) X 10*3/uL Immature Gran # 0.06 H (0.00-0.04) X 10*3/uL Neutrophils # 10.63 H (1.80-7.70) X 10*3/uL Lymphocytes # 0.87 L (0.90-5.00) X 10*3/uL Monocytes # 1.24 H (0.20-1.00) X 10*3/uL Eosinophils # 0.02 L (0.04-0.35) X 10*3/uL Carbon Dioxide 17.3 L (20.0-27.5) mmol/L BUN/Creatinine Ratio 25.56 H (12.00-20.00) Ratio AST 147 H (13-35) U/L ALT 72 H (8-44) U/L Microbiology - Last 24 Hours (Table) 03/06/21 12:44 Blood Culture - Preliminary Blood No Growth after 48 hours Assessment and Plan Assessment: * Acute right pontine ischemic infarct. * Hypertension, uncontrolled * Hyperlipidemia * Left wrist pain, unclear cause. * X tobacco use * UTI * Obesity Plan: * Patient continues to have left hemiparesis. Patient after repeated attempts, and agreed to undergo MRI of the brain. * MRI of the brain was performed today, which revealed acute right pontine ischemic infarct. I personally reviewed the MRI and agree with the findings. * X-ray of the right wrist revealed no evidence of acute trauma. Osteoarthritic changes. * Continue aspirin 81 mg and Plavix 75 mg. * Lipid panel with cholesterol 192, LDL 120, HDL 44 and triglycerides 134. Continue Lipitor 20 mg daily. * Hemoglobin A1c 5.9. * 2-D echo revealed left ventricle is severely dilated. Moderate concentric LVH. Left ventricle systolic function is moderately impaired with EF between 35-40%. Basal inferior, basal inferior septal left-ventricular wall motion is hypokinetic. Ascending aorta is dilated measuring up to 43 mm. IM to address abnormal echo. Consider cardiology consult. * Carotid Doppler results pending. * Patient's hepatic panel revealed AST 147, AST 72, uncertain if related to statins. Discussed with Dr. Salazar. Hepatitis panel negative. * Patient on heparin 5000 as Q every 8 hours and SCDs for DVT prophylaxis. * Pepcid 20 mg twice a day for gastric ulcer prophylaxis. * Gradually control blood pressure. Avoid hypotension. * PT and OT and speech therapy. * Avoid anticholinergics, sedatives at this time. * Patient also has UTI. And started on ceftriaxone 1 g every 12 hours. * Spoke to patient's sister Halle on the phone, and informed results of MRI.
[2021-03-09] MEDS: HEPARIN SODIUM,PORCINE/PF 5,000 UNIT/0.5 ML SYRINGE SQ SCH (17:29)
[2021-03-09] MEDS: risperiDONE 0.25 MG TAB PO SCH (22:46)
[2021-03-09] MEDS: ATORVASTATIN 40 MG TAB PO SCH (22:46)
[2021-03-10] MEDS: HEPARIN SODIUM,PORCINE/PF 5,000 UNIT/0.5 ML SYRINGE SQ SCH ×4 (00:06→22:59)
--- NOTE | 2021-03-10 00:55 | P.CONS ---
History of Present Illness - Reason for Consult Consult date: 03/09/21 fever , cellulitis vs others Requesting physician: Serafin E Sheet - Chief Complaint left leg weakness x days - History of Present Illness History of Present Illness : Patient is 81-year female presenting to the hospital 3 days ago for evaluation of left leg pain patient was complaining of having left leg pain and unable to use it patient also have a history of c hronic lower back pain and apparently was also complaining of jerking movement in the lower leg patient on presentation to the hospital has been afebrile except a low-grade fever of 99.7 this morning patient did have a mildly elevated white count of 12.84 BUN and creatinine were mildly elevated procalcitonin 0.05 urine has been positive verduzco PCR and hepatitis serology was negative blood cultures repeat currently pending patient is currently being treated with Rocephin 1 g daily, infectious disease was consulted with concern for low-grade fever cellulitis versus others in this patient currently do not have any swelling or redness to the lower extremity patient is already being evaluated by neurology services and the patient did have MRI of the brain with evidence of acute right pontine ischemic infarct Review of system: CONSTITUTIONAL: Positive for weakness denies high-grade fever. EYES: No complaint. ENT: No complaint. RESPIRATORY: No complaint. CARDIOVASCULAR: No complaint. GENITOURINARY: No complaint. GASTROINTESTINAL: No complaint. MUSCULOSKELETAL: As per history of present illness. INTEGUMENTARY : No complaint. PSYCHOLOGIC: No complaint. ENDOCRINE: No complaint. NEUROLOGIC: No complaint. Past medical history : Reviewed, documented below Past surgical history : Reviewed, documented below Social history: Reviewed, documented below Medications: Reviewed, as documented below EXAMINATION: Vital sigans= Reviewed and documented below GENERAL DESCRIPTION: Elderly female lying in bed, no distress. No tachypnea or accessory muscle of respiration use. HEENT: Shows Pallor , no scleral icterus. Oral mucous membrane is dry. NECK: Trachea central, no thyromegaly. LUNGS: Unlabored breathing. Clear to auscultation anteriorly. No wheeze or crackle. HEART: S1, S2, regular rate and rhythm. ABDOMEN: Soft, no tenderness , guarding or rigidity EXTREMITIES: No edema feet SKIN: No rash, no masses palpable. NEUROLOGICAL: The patient is awake, alert, oriented x3, mood and affect normal. LABS AND RADIOLOGY: Reviewed results see below Assessment : Patient presented to hospital with weakness especially to the left leg also has some cervical movement did have a history of chronic lower back pain patient did have a low-grade fever of 99.7 and white count is mildly e levated in this patient with a positive UA however in view of the back pain and left leg weakness underlying lumbar sacral spine disease need to be ruled out however the patient already has abnormality on the MRI of the brain and that can explain her left leg weakness Plan: 1-blood cultures will be obtained 2-we will check a CRP and a sed rate 3-if the patient did have elevated inflammatory markers will be recommending obtaining MRI of the lumbar sacral spine area. 4continue with Rocephin We will follow on clinical condition and cultures to further adjust medication if needed Thank you for this consultation we will follow the patient along with you Past Medical History Past Medical History: Hypertension Additional Past Medical History / Comment(s): Per pt's daughter, pt has no pertinent medical history. History of Any Multi-Drug Resistant Organisms: None Reported Past Surgical History: No Surgical Hx Reported Additional Past Surgical History / Comment(s): Per pt's daughter, the patient had her hip replaced in 2008. cataract repair, tubal ligation Past Anesthesia/Blood Transfusion Reactions: Unable to Obtain Additional Past Anesthesia/Blood Transfusion Reaction / Comm: Sister's state pt is very sensitive to medications. Past Psychological History: No Psychological Hx Reported, Unable to Obtain Smoking Status: Never smoker Past Alcohol Use History: None Reported Past Drug Use History: None Reported - Past Family History Mother Family Medical History: No Reported History Additional Family Medical History / Comment(s): Mother is 98yrs old. Father Additional Family Medical History / Comment(s): Father in an accident at the age of 55yrs. Medications and Allergies Home Medications Medication Instructions Recorded Confirmed Type Allopurinol [Zyloprim] 300 mg PO DAILY 04/06/20 03/06/21 History Esomeprazole Magnesium [NexIUM] 20 mg PO DAILY 04/06/20 03/06/21 History Nebivolol HCl [Bystolic] 10 mg PO DAILY 04/06/20 03/06/21 History HYDROcodone/APAP 7.5-325MG [[place] 1 tab PO Q6HR PRN 03/06/21 03/06/21 History 7.5-325] Tolterodine ER [Detrol LA] 4 mg PO DAILY 03/06/21 03/06/21 History Allergies Allergy/AdvReac Type Severity Reaction Status Date / Time Penicillins Allergy Unknown Verified 03/06/21 09:34 Childhood Physical Exam Vitals: Vital Signs Temp Pulse Resp BP BP Pulse Ox 03/09/21 08:00 18 03/09/21 07:35 97.9 F 70 19 167/87 95 03/09/21 01:16 99.7 F H 78 18 167/97 93 L 03/08/21 23:32 177/92 160/90 03/08/21 20:34 98.5 F 59 L 18 178/114 91 L 03/08/21 20:00 59 L 18 Intake and Output 03/08/21 03/09/21 03/09/21 22:59 06:59 14:59 Output Total 600 Balance -600 Output: Urine 600 Other: Voiding Method Indwelling Catheter Indwelling Catheter # Bowel Movements 1 Results CBC & Chem 7: 03/09/21 04:12 03/09/21 04:12 Labs: Abnormal Lab Results - Last 24 Hours (Table) 03/09/21 03/09/21 Range/Units 04:12 04:12 WBC 12.84 H (4.50-10.00) X 10*3/uL Immature Gran # 0.06 H (0.00-0.04) X 10*3/uL Neutrophils # 10.63 H (1.80-7.70) X 10*3/uL Lymphocytes # 0.87 L (0.90-5.00) X 10*3/uL Monocytes # 1.24 H (0.20-1.00) X 10*3/uL Eosinophils # 0.02 L (0.04-0.35) X 10*3/uL Carbon Dioxide 17.3 L (20.0-27.5) mmol/L BUN/Creatinine Ratio 25.56 H (12.00-20.00) Ratio AST 147 H (13-35) U/L ALT 72 H (8-44) U/L Microbiology - Last 24 Hours (Table) 03/06/21 12:44 Blood Culture - Preliminary Blood No Growth after 48 hours
[2021-03-10] MEDS: SODIUM CHLORIDE 0.9% 1,000 ML IV SCH ×2 (06:10→21:46)
[2021-03-10] MEDS: amLODIPine 5 MG TAB PO SCH (09:06)
[2021-03-10] MEDS: NEBIVOLOL 5 MG TAB PO SCH (09:06)
[2021-03-10] MEDS: PANTOPRAZOLE 40 MG TABLET PO SCH (09:06)
[2021-03-10] MEDS: CLOPIDOGREL 75 MG TAB PO SCH (09:07)
[2021-03-10] MEDS: allopurinoL 300 MG TAB PO SCH (09:07)
[2021-03-10] MEDS: ASPIRIN 81 MG PO SCH (09:07)
[2021-03-10] MEDS: OXYBUTYNIN XL 5 MG TAB.ER.24 PO SCH (09:12)
[2021-03-10 09:17] LABS: Basophils # (A) 0.02 X 10*3/uL (0.00-0.10); Basophils % (A) 0.2 %; Eosinophils # (A) 0.03 X 10*3/uL (0.04-0.35); Eosinophils % (A) 0.3 %; HCT 41.2 % (37.2-46.3); HGB 13.5 g/dL (12.0-15.0); Immature Grans, Automated 0.4 %; Lymphocytes % (A) 6.7 %; MCH 28.7 pg (27.0-32.0); MCHC 32.8 g/dL (32.0-37.0); MCV 87.7 fL (80.0-97.0); Mean Platelet Volume 10.7 fL (9.5-12.2); Monocytes # (A) 1.39 X 10*3/uL (0.20-1.00); Monocytes % (A) 13.2 %; NRBC Per 100 WBC 0 /100 WBCS (0.0-0.0); Neutrophils # (A) 8.34 X 10*3/uL (1.80-7.70); Neutrophils % (A) 79.2 %; Platelet Count 209 X 10*3/uL (140-440); RDW 12.8 % (11.5-14.5); WBC 10.52 X 10*3/uL (4.50-10.00)
[2021-03-10 09:28] LABS: C Reactive Protein 9.6 mg/dL (0.00-0.80)
[2021-03-10 09:29] LABS: African American GFR (CKD) 57.8 (60.0-200.0); Albumin 3.5 g/dL (3.8-4.9); Albumin/Globulin Ratio 1.48 (1.60-3.17); Anion Gap 13.4 mmol/L (10.00-18.00); BUN/Creat Ratio 28.49 Ratio (12.00-20.00); Blood Urea Nitrogen 30.2 mg/dL (9.0-27.0); Calcium 9.4 mg/dL (8.7-10.3); Carbon Dioxide 19.7 mmol/L (20.0-27.5); Globulin 2.4 g/dL (1.6-3.3); Non-African American GFR(CKD) 49.9 (60.0-200.0); Potassium 3.4 mmol/L (3.5-5.5); Total Bilirubin 0.4 mg/dL (0.30-1.20); Total Protein 5.9 g/dL (6.2-8.2)
[2021-03-10 13:56] LABS: Erythrocyte Sedimentation Rate 31 mm/Hr (0-30)
--- NOTE | 2021-03-10 16:45 | P.PN ---
Subjective Progress Note Date: 03/10/21 Principal diagnosis: Fever Patient is 81 year female presenting to the hospital for evaluation of left leg pain and weakness in this patient did have a history of chronic back pain no recent worsening patient did have MRI of the brain with evidence of acute right pontine ischemic infarct. On today's evaluation that is 03/10/2021, the patient denies having any fever or any chills, the patient is breathing comfortably, denies any chest pain shortness of breath or cough no abdominal pain no back pain is currently controlled and denies any worsening weakness to the left leg no bowel or bladder problem Objective - Vital Signs Vital signs: Vital Signs Temp 98 F 03/10/21 14:00 Pulse 62 03/10/21 14:00 Resp 16 03/10/21 14:00 BP 124/84 03/10/21 14:00 Pulse Ox 94 L 03/10/21 14:00 Intake & Output 03/09/21 03/10/21 03/10/21 18:59 06:59 18:59 Intake Total 118 Output Total 200 Balance -200 118 Intake: Oral 118 Output: Urine 200 Other: Voiding Method Indwelling Catheter Indwelling Catheter Indwelling Catheter - Exam GENERAL DESCRIPTION: An elderly female lying in bed in no distress RESPIRATORY SYSTEM: Unlabored breathing , decreased breath sounds at bases HEART: S1 S2 regular rate and rhythm , ABDOMEN: Soft , no tenderness EXTREMITIES: No edema feet - Labs CBC & Chem 7: 03/10/21 04:28 03/10/21 04:28 Labs: Abnormal Lab Results - Last 24 Hours (Table) 03/10/21 03/10/21 03/10/21 Range/Units 04:28 04:28 04:28 WBC 10.52 H (4.50-10.00) X 10*3/uL Neutrophils # 8.34 H (1.80-7.70) X 10*3/uL Lymphocytes # 0.70 L (0.90-5.00) X 10*3/uL Monocytes # 1.39 H (0.20-1.00) X 10*3/uL Eosinophils # 0.03 L (0.04-0.35) X 10*3/uL ESR 31 H (0-30) mm/Hr Potassium 3.4 L (3.5-5.5) mmol/L Carbon Dioxide 19.7 L (20.0-27.5) mmol/L BUN 30.2 H (9.0-27.0) mg/dL Est GFR (CKD-EPI)AfAm 57.8 L (60.0-200.0) Est GFR (CKD-EPI)NonAf 49.9 L (60.0-200.0) BUN/Creatinine Ratio 28.49 H (12.00-20.00) Ratio Glucose 146 H (70-110) mg/dL AST 67 H (13-35) U/L ALT 53 H (8-44) U/L C-Reactive Protein 9.60 H (0.00-0.80) mg/dL Total Protein 5.9 L (6.2-8.2) g/dL Albumin 3.5 L (3.8-4.9) g/dL Albumin/Globulin Ratio 1.48 L (1.60-3.17) g/dL Procalcitonin 0.17 H (0.02-0.09) ng/mL Microbiology - Last 24 Hours (Table) 03/09/21 11:01 Urine Culture - Preliminary Urine,Clean Catch 03/06/21 12:44 Blood Culture - Preliminary Blood No Growth after 72 hours Assessment and Plan Plan: 1-patient admitted to the hospital with left leg pain and weakness in this patient who did have evidence of acute pontine infarct could explain her weakness will discuss further with you as in view of the low back pain and left leg weakness mildly elevated white count and a sed rate underlying lumbosacral spine infection needs to be ruled out patient was offered an MRI which the patient's currently refusing saying that , she doesn't feel like there is any infection in her back Time with Patient: Less than 30
[2021-03-10] MEDS ORDERED: Magnesium Replacement Protocol 1 EACH MISC MISCELLANE PRN (16:47)
[2021-03-10] MEDS ORDERED: Potassium Replacement Protocol 1 EACH MISC MISCELLANE PRN (16:47)
--- NOTE | 2021-03-10 16:49 | P.PN ---
Subjective Patient was in the hospital about one year ago also for mental status change with no clear etiology, that time lumbar puncture showed mildly elevated of protein but there was no evidence of infection. Patient with past medical history of hypertension presents with abnormal chorio-athetoid movements abn of the left side, but EEG was negative for epileptiform discharge. Patient currently on multiple seizure medication. However there was evidence of left sided weakness and stroke was suspected, however patient could not do an MRI because of severe claustrophobia, repeat CT of the brain from today showing chronic atrophic ischemic changes with no overt evidence of acute stroke. Today patient the morning was sleepy after she received Seroquel 25 mg every morning for the first time. Later on patient was hallucinating. Other think just mild leukocytosis, there were enzymes slightly elevated. Further workup of stroke is pending including carotid duplex, echocardiogram. Because of elevated liver enzymes will order a liver ultrasound and hepatitis panel. She remains on aspirin added to her home dose of Plavix. Discontinue Levaquin as her urine culture came back negative. And continue with gentle hydration There was some evidence of proptosis on imaging however PSA check today it was located 0.4 and normal free T4 at 1.1. 03/09/2021 Patient is significantly confused this morning, she A cup with verbal stimulus partially but goes back to sleep right away. Her left arm is kept in a flexed position as well as her left leg, she refuses to try to passively move her right upper extremity as if she is in pain, it looks warm but there is no erythema to suggest cellulitis significantly. However she had low-grade fever of 99.7 at mild leukocytosis of 12.8, repeat septic workup shows evidence of UTI and she was started on Rocephin, also we will change her Staples catheter. Her liver enzymes are trending down which is good while she is on Lipitor. MRI of the brain done today showing acute infarct of the yaneth. Neurology serv ice on the case. She is currently on aspirin 81 mg and Plavix. 03/10/2021 Patient remains not doing well since I saw her she still sleepy confused most of the time and she does not answer questions, she open eye today briefly on verbal and tactile history Follow simple, before she go back to sleep right away. This also limits her neurological examination. However she has's acute stroke of the yaneth seen on the MRI of the brain. However she has mildly elevated white cell count, mild fever of 99.7 and broughtcalcitonin trending up 0.05 and 20.117. ESR is elevated at 31 CRP is elevated at 9.6. However blood culture and urine culture on 2 are negative. Infectious disease team on the case and their input is appreciated. Patient currently kept on ceftriaxone. She is currently covered with aspirin and Plavix, subcu heparin added as well. We will try to discontinue sedative to help her mentation, [place] and risperidone, although she was not taken [place] recently. Liver enzymes are trending down. Potassium 3.4, creatinine 1.1. Objective - Vital Signs Vital signs: Vital Signs Temp 99.1 F 03/10/21 08:00 Pulse 60 03/10/21 08:00 Resp 16 03/10/21 08:00 BP 135/84 03/10/21 08:00 Pulse Ox 92 L 03/10/21 08:00 Intake & Output 03/09/21 03/10/21 03/10/21 18:59 06:59 18:59 Intake Total 118 Output Total 200 Balance -200 118 Intake: Oral 118 Output: Urine 200 Other: Voiding Method Indwelling Catheter Indwelling Catheter Indwelling Catheter - Exam -GENERAL: The patient is confused HEENT: Pupils are round and equally reacting to light. EOMI. No scleral icterus. No conjunctival pallor. Normocephalic, atraumatic. No pharyngeal erythema. No thyromegaly. CARDIOVASCULAR: S1 and S2 present. No murmurs, rubs, or gallops. PULMONARY: Chest is clear to auscultation, no wheezing or crackles. ABDOMEN: Soft, nontender, nondistended, normoactive bowel sounds. No palpable organomegaly. MUSCULOSKELETAL: No joint swelling or deformity. EXTREMITIES: No cyanosis, clubbing, or pedal edema. NEUROLOGICAL: Gross neurological examination did not reveal any focal deficits. SKIN: No rashes. no petechiae. - Labs CBC & Chem 7: 03/10/21 04:28 03/10/21 04:28 Labs: Abnormal Lab Results - Last 24 Hours (Table) 03/09/21 03/10/21 03/10/21 Range/Units 11:01 04:28 04:28 WBC 10.52 H (4.50-10.00) X 10*3/uL Neutrophils # 8.34 H (1.80-7.70) X 10*3/uL Lymphocytes # 0.70 L (0.90-5.00) X 10*3/uL Monocytes # 1.39 H (0.20-1.00) X 10*3/uL Eosinophils # 0.03 L (0.04-0.35) X 10*3/uL Potassium 3.4 L (3.5-5.5) mmol/L Carbon Dioxide 19.7 L (20.0-27.5) mmol/L BUN 30.2 H (9.0-27.0) mg/dL Est GFR (CKD-EPI)AfAm 57.8 L (60.0-200.0) Est GFR (CKD-EPI)NonAf 49.9 L (60.0-200.0) BUN/Creatinine Ratio 28.49 H (12.00-20.00) Ratio Glucose 146 H (70-110) mg/dL AST 67 H (13-35) U/L ALT 53 H (8-44) U/L C-Reactive Protein 9.60 H (0.00-0.80) mg/dL Total Protein 5.9 L (6.2-8.2) g/dL Albumin 3.5 L (3.8-4.9) g/dL Albumin/Globulin Ratio 1.48 L (1.60-3.17) g/dL Urine Appearance Cloudy H (Clear) Urine Protein 2+ H (Negative) Urine Glucose (UA) Trace H (Negative) Urine Ketones 3+ H (Negative) Urine Blood Large H (Negative) Urine Bilirubin 1+ H (Negative) Ur Leukocyte Esterase Large H (Negative) Urine RBC 46 H (0-5) /hpf Urine WBC 88 H (0-5) /hpf Urine Mucus Moderate H (None) /hpf Microbiology - Last 24 Hours (Table) 03/09/21 11:01 Urine Culture - Preliminary Urine,Clean Catch 03/06/21 12:44 Blood Culture - Preliminary Blood No Growth after 72 hours Assessment and Plan Assessment: Left sided weakness suspicious for acute stroke. Acute infarction of the yaneth Mild fever and leukocytosis, Rule out infection Good mental status most likely metabolic encephalopathy, as well as combined with her acute stroke. 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 Continue same treatment. Continue with symptomatic treatment. Resume home medication. Monitor lytes and vitals. DVT and GI prophylaxis. Further recommendationsas per clinical course of the patient DVT prophylaxis: Already on aspirin and Plavix GI Prophylaxis: Ppi PT/OT: Pending Prognosis is guarded
[2021-03-10] MEDS: ATORVASTATIN 40 MG TAB PO SCH (21:46)
[2021-03-10] MEDS: ACETAMINOPHEN TAB 325 MG TAB PO PRN (22:58)
--- NOTE | 2021-03-11 00:54 | P.PN ---
Subjective Progress Note Date: 03/10/21 This is a Tele-neurology followup performed today on 03/10/2021. Patient has slightly improved today as compared to yesterday. Patient's nurse was also present. She states that patient usually wakes up late at around 11 AM. She fully perks up by noon. Patient claims that she did not sleep well last night. Patient states both feet hurt bad, the left foot was hurting for last 2-3 nights, but the right foot started hurting since last night. Her telemetry monitoring showing sinus rhythm, with no atrial fibrillation. Patient denies any headache. No dizziness or chest pain. Patient's involuntary movements has resolved. She appears to have mild left hemiparesis noticed at this time. Patient admits to smoking less than one pack per day for 37 years, quit 22 years ago. Objective - Vital Signs Vital signs: Vital Signs Temp 99.0 F 03/10/21 19:49 Pulse 65 03/10/21 19:49 Resp 16 03/10/21 19:49 BP 150/79 03/10/21 19:49 Pulse Ox 96 03/10/21 19:49 Intake & Output 03/10/21 03/10/21 03/11/21 06:59 18:59 06:59 Intake Total 236 Output Total 200 300 Balance -200 -64 Intake: Oral 236 Output: Urine 200 300 Other: Voiding Method Indwelling Catheter Indwelling Catheter - Exam Patient is an elderly female in no distress. She is alert and awake. Not as restless. Patient is alert awake. Speech is mildly dysarthric, no aphasia. Patient can name and repeat. Attention, concentration and fund of knowledge is adequate. Detailed testing deferred. Patient continues to have significant left hemiparesis including face arm and leg. Her left arm is about 3, able to hold antigravity. The o and m supervisor is 3+. Hip flexion 1-2, the left ankle dorsiflexion patient is wiggling it very well. Sensations are equal. No ataxia in the right, cannot perform on the left. - Labs CBC & Chem 7: 03/10/21 04:28 03/10/21 04:28 Labs: Abnormal Lab Results - Last 24 Hours (Table) 03/10/21 03/10/21 03/10/21 Range/Units 04:28 04:28 04:28 WBC 10.52 H (4.50-10.00) X 10*3/uL Neutrophils # 8.34 H (1.80-7.70) X 10*3/uL Lymphocytes # 0.70 L (0.90-5.00) X 10*3/uL Monocytes # 1.39 H (0.20-1.00) X 10*3/uL Eosinophils # 0.03 L (0.04-0.35) X 10*3/uL ESR 31 H (0-30) mm/Hr Potassium 3.4 L (3.5-5.5) mmol/L Carbon Dioxide 19.7 L (20.0-27.5) mmol/L BUN 30.2 H (9.0-27.0) mg/dL Est GFR (CKD-EPI)AfAm 57.8 L (60.0-200.0) Est GFR (CKD-EPI)NonAf 49.9 L (60.0-200.0) BUN/Creatinine Ratio 28.49 H (12.00-20.00) Ratio Glucose 146 H (70-110) mg/dL AST 67 H (13-35) U/L ALT 53 H (8-44) U/L C-Reactive Protein 9.60 H (0.00-0.80) mg/dL Total Protein 5.9 L (6.2-8.2) g/dL Albumin 3.5 L (3.8-4.9) g/dL Albumin/Globulin Ratio 1.48 L (1.60-3.17) g/dL Procalcitonin 0.17 H (0.02-0.09) ng/mL Microbiology - Last 24 Hours (Table) 03/09/21 11:01 Urine Culture - Final Urine,Clean Catch 03/06/21 12:44 Blood Culture - Preliminary Blood No Growth after 96 hours Assessment and Plan Assessment: * Acute right pontine ischemic infarct. * Hypertension, uncontrolled * Hyperlipidemia * Left wrist pain, unclear cause. * X tobacco use * UTI * Obesity Plan: * Patient's left hemiparesis has improved. * MRI of the brain revealed acute right pontine ischemic infarct. I personally reviewed the MRI and agree with the findings. * Continue aspirin 81 mg and Plavix 75 mg. * Lipid panel with cholesterol 192, LDL 120, HDL 44 and triglycerides 134. Continue Lipitor 20 mg daily. * Hemoglobin A1c 5.9. * 2-D echo revealed left ventricle is severely dilated. Moderate concentric LVH. Left ventricle systolic function is moderately impaired with EF between 35-40%. Basal inferior, basal inferior septal left-ventricular wall motion is hypokinetic. Ascending aorta is dilated measuring up to 43 mm. IM to address abnormal echo. Consider cardiology consult. * Patient's CTA of head and neck from 04/05/2020 shows minimal atheromatous change in the carotid artery bifurcation. No evidence of hemodynamic stenosis. 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 No dissection. No significant intracranial angiographic abnormality. * Hepatic panel improving with most recent AST 67 and ALT 53. Discussed with Dr. Salazar. Hepatitis panel negative. * Patient on heparin 5000 as Q every 8 hours and SCDs for DVT prophylaxis. * Pepcid 20 mg twice a day for gastric ulcer prophylaxis. * Gradually control blood pressure. Avoid hypotension. * PT and OT and speech therapy. * Avoid anticholinergics, sedatives at this time. * Patient also has UTI. And started on ceftriaxone 1 g every 12 hours. ID following. * Spoke inpatient rehabilitation consult. * Dr. Ryan Navarro to resume neurology service in the morning.
[2021-03-11] MEDS: SODIUM CHLORIDE 0.9% 1,000 ML IV SCH (08:42)
[2021-03-11] MEDS: ASPIRIN 81 MG PO SCH (08:43)
[2021-03-11] MEDS: PANTOPRAZOLE 40 MG TABLET PO SCH (08:44)
[2021-03-11] MEDS: amLODIPine 5 MG TAB PO SCH (08:44)
[2021-03-11] MEDS: OXYBUTYNIN XL 5 MG TAB.ER.24 PO SCH (08:44)
[2021-03-11] MEDS: allopurinoL 300 MG TAB PO SCH (08:44)
[2021-03-11] MEDS: CLOPIDOGREL 75 MG TAB PO SCH (08:44)
[2021-03-11] MEDS: HEPARIN SODIUM,PORCINE/PF 5,000 UNIT/0.5 ML SYRINGE SQ SCH ×3 (08:45→23:30)
[2021-03-11] MEDS: NEBIVOLOL 5 MG TAB PO SCH (08:46)
[2021-03-11 09:19] LABS: ALT 41 U/L (8-44); AST 36 U/L (13-35); African American GFR (CKD) 70.5 (60.0-200.0); Albumin 3.6 g/dL (3.8-4.9); Albumin/Globulin Ratio 1.57 (1.60-3.17); Alkaline Phosphatase 55 U/L (41-126); BUN/Creat Ratio 24.44 Ratio (12.00-20.00); Bilirubin, Conjugated <0.20 mg/dL (0.20-0.40); Calcium 9.1 mg/dL (8.7-10.3); Carbon Dioxide 21.4 mmol/L (20.0-27.5); Chloride 108 mmol/L (96-109); Globulin 2.3 g/dL (1.6-3.3); Glucose 124 mg/dL (70-110); Magnesium 1.9 mg/dL (1.5-2.4); Non-African American GFR(CKD) 60.8 (60.0-200.0); Potassium 3.8 mmol/L (3.5-5.5); Sodium 142 mmol/L (135-145); Total Protein 5.9 g/dL (6.2-8.2)
[2021-03-11 09:31] LABS: Basophils # (A) 0.03 X 10*3/uL (0.00-0.10); Basophils % (A) 0.3 %; Eosinophils # (A) 0.12 X 10*3/uL (0.04-0.35); Eosinophils % (A) 1.3 %; HCT 42.7 % (37.2-46.3); HGB 13.3 g/dL (12.0-15.0); Immature Grans, Automated 0.7 %; Lymphocytes # (A) 0.86 X 10*3/uL (0.90-5.00); Lymphocytes % (A) 9.5 %; MCHC 31.1 g/dL (32.0-37.0); MCV 93.2 fL (80.0-97.0); Mean Platelet Volume 10.7 fL (9.5-12.2); Monocytes % (A) 14.4 %; NRBC Per 100 WBC 0 /100 WBCS (0.0-0.0); Neutrophils # (A) 6.68 X 10*3/uL (1.80-7.70); Neutrophils % (A) 73.8 %; Platelet Count 179 X 10*3/uL (140-440); RBC 4.58 X 10*6/uL (4.10-5.20); RDW 13.1 % (11.5-14.5); WBC 9.05 X 10*3/uL (4.50-10.00)
[2021-03-11] MEDS: HYDROcodone/APAP 7.5-325MG 1 EACH TAB PO PRN ×2 (11:45→23:30)
[2021-03-11] MEDS: LIDOCAINE 5% PATCH TOPICAL SCH (18:05)
--- NOTE | 2021-03-11 18:52 | P.PN ---
Subjective Patient was in the hospital about one year ago also for mental status change with no clear etiology, that time lumbar puncture showed mildly elevated of protein but there was no evidence of infection. Patient with past medical history of hypertension presents with abnormal chorio-athetoid movements abn of the left side, but EEG was negative for epileptiform discharge. Patient currently on multiple seizure medication. However there was evidence of left sided weakness and stroke was suspected, however patient could not do an MRI because of severe claustrophobia, repeat CT of the brain from today showing chronic atrophic ischemic changes with no overt evidence of acute stroke. Today patient the morning was sleepy after she received Seroquel 25 mg every morning for the first time. Later on patient was hallucinating. Other think just mild leukocytosis, there were enzymes slightly elevated. Further workup of stroke is pending including carotid duplex, echocardiogram. Because of elevated liver enzymes will order a liver ultrasound and hepatitis panel. She remains on aspirin added to her home dose of Plavix. Discontinue Levaquin as her urine culture came back negative. And continue with gentle hydration There was some evidence of proptosis on imaging however PSA check today it was located 0.4 and normal free T4 at 1.1. 03/09/2021 Patient is significantly confused this morning, she A cup with verbal stimulus partially but goes back to sleep right away. Her left arm is kept in a flexed position as well as her left leg, she refuses to try to passively move her right upper extremity as if she is in pain, it looks warm but there is no erythema to suggest cellulitis significantly. However she had low-grade fever of 99.7 at mild leukocytosis of 12.8, repeat septic workup shows evidence of UTI and she was started on Rocephin, also we will change her Staples catheter. Her liver enzymes are trending down which is good while she is on Lipitor. MRI of the brain done today showing acute infarct of the yaneth. Neurology serv ice on the case. She is currently on aspirin 81 mg and Plavix. 03/10/2021 Patient remains not doing well since I saw her she still sleepy confused most of the time and she does not answer questions, she open eye today briefly on verbal and tactile history Follow simple, before she go back to sleep right away. This also limits her neurological examination. However she has's acute stroke of the yaneth seen on the MRI of the brain. However she has mildly elevated white cell count, mild fever of 99.7 and broughtcalcitonin trending up 0.05 and 20.117. ESR is elevated at 31 CRP is elevated at 9.6. However blood culture and urine culture on 2 are negative. Infectious disease team on the case and their input is appreciated. Patient currently kept on ceftriaxone. She is currently covered with aspirin and Plavix, subcu heparin added as well. We will try to discontinue sedative to help her mentation, [place] and risperidone, although she was not taken [place] recently. Liver enzymes are trending down. Potassium 3.4, creatinine 1.1. 03/11/2021 Patient today is awake and alert and she is oriented to the surrounding and her illness, her mentation almost back to normal however she still have significant left-sided hemiparesis, barely she can move her left leg, left arm she can move a little better but still significantly weaker. Her tongue is deviated to the left side and she has right ptosis. All these are multiple new, no other new focal neurological deficit. She is complaining of from some back pain after stopping her sedatives. We placed her back on [place] 7.5 twice a day instead of 10 mg dose at home. Also added lidocaine patch. She is hemodynamically stable and she is saturating 96% on 3 L. Labs are improving and leukocytosis resolved down to 9.0. Liver enzymes almost back to normal. Potassium 3.8, creatinine 0.9. We are consulting Dr. Brush for possible inpatient rehab Objective - Vital Signs Vital signs: Vital Signs Temp 97.9 F 03/11/21 08:00 Pulse 51 L 03/11/21 08:00 Resp 16 03/11/21 08:00 BP 147/94 03/11/21 08:00 Pulse Ox 96 03/11/21 08:00 Intake & Output 03/10/21 03/11/21 03/11/21 18:59 06:59 18:59 Intake Total 236 Output Total 300 500 Balance -64 -500 Intake: Oral 236 Output: Urine 300 500 Other: Voiding Method Indwelling Catheter Indwelling Catheter - Exam -GENERAL: The patient is confused HEENT: Pupils are round and equally reacting to light. EOMI. No scleral icterus. No conjunctival pallor. Normocephalic, atraumatic. No pharyngeal erythema. No thyromegaly. CARDIOVASCULAR: S1 and S2 present. No murmurs, rubs, or gallops. PULMONARY: Chest is clear to auscultation, no wheezing or crackles. ABDOMEN: Soft, nontender, nondistended, normoactive bowel sounds. No palpable organomegaly. MUSCULOSKELETAL: No joint swelling or deformity. EXTREMITIES: No cyanosis, clubbing, or pedal edema. NEUROLOGICAL: Gross neurological examination did not reveal any focal deficits. SKIN: No rashes. no petechiae. - Labs CBC & Chem 7: 03/11/21 03:04 03/11/21 03:04 Labs: Abnormal Lab Results - Last 24 Hours (Table) 03/10/21 03/10/21 03/11/21 Range/Units 04:28 04:28 03:04 MCHC 31.1 L (32.0-37.0) g/dL Immature Gran # 0.06 H (0.00-0.04) X 10*3/uL Lymphocytes # 0.86 L (0.90-5.00) X 10*3/uL Monocytes # 1.30 H (0.20-1.00) X 10*3/uL ESR 31 H (0-30) mm/Hr BUN/Creatinine Ratio (12.00-20.00) Ratio Glucose (70-110) mg/dL Conjugated Bilirubin (0.20-0.40) mg/dL AST (13-35) U/L Total Protein (6.2-8.2) g/dL Albumin (3.8-4.9) g/dL Albumin/Globulin Ratio (1.60-3.17) g/dL Procalcitonin 0.17 H (0.02-0.09) ng/mL 03/11/21 Range/Units 03:04 MCHC (32.0-37.0) g/dL Immature Gran # (0.00-0.04) X 10*3/uL Lymphocytes # (0.90-5.00) X 10*3/uL Monocytes # (0.20-1.00) X 10*3/uL ESR (0-30) mm/Hr BUN/Creatinine Ratio 24.44 H (12.00-20.00) Ratio Glucose 124 H (70-110) mg/dL Conjugated Bilirubin <0.20 L (0.20-0.40) mg/dL AST 36 H (13-35) U/L Total Protein 5.9 L (6.2-8.2) g/dL Albumin 3.6 L (3.8-4.9) g/dL Albumin/Globulin Ratio 1.57 L (1.60-3.17) g/dL Procalcitonin (0.02-0.09) ng/mL Microbiology - Last 24 Hours (Table) 03/09/21 11:01 Urine Culture - Final Urine,Clean Catch 03/06/21 12:44 Blood Culture - Preliminary Blood No Growth after 96 hours Assessment and Plan Assessment: Left sided weakness suspicious for acute stroke. Acute infarction of the yaneth Mild fever and leukocytosis, Rule out infection Good mental status most likely metabolic encephalopathy, as well as combined with her acute stroke. 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 Continue same treatment. Continue with symptomatic treatment. Resume home medication. Monitor lytes and vitals. DVT and GI prophylaxis. Further recommendationsas per clinical course of the patient DVT prophylaxis: Already on aspirin and Plavix GI Prophylaxis: Ppi PT/OT: ConstaVac rehab Prognosis is guarded
[2021-03-11] MEDS: ATORVASTATIN 40 MG TAB PO SCH (21:43)
--- NOTE | 2021-03-11 22:32 | P.PN ---
Subjective Progress Note Date: 03/11/21 Principal diagnosis: Fever Patient is 81 year female presenting to the hospital for evaluation of left leg pain and weakness in this patient did have a history of chronic back pain no recent worsening patient did have MRI of the brain with evidence of acute right pontine ischemic infarct. On today's evaluation that is 03/11/2021, the patient remains to be afebrile, th e patient is breathing comfortably, the patient denies any chest pain shortness of breath or cough no abdominal pain, the patient back pain is currently controlled and denies any worsening weakness to the left leg no bowel or bladder problem Objective - Vital Signs Vital signs: Vital Signs Temp 97.9 F 03/11/21 14:00 Pulse 73 03/11/21 14:00 Resp 18 03/11/21 14:00 BP 143/93 03/11/21 14:00 Pulse Ox 96 03/11/21 14:00 Intake & Output 03/11/21 03/11/21 03/12/21 06:59 18:59 06:59 Intake Total 50 Output Total 500 Balance -500 50 Intake: Intake, IV Titration 50 Amount cefTRIAXone 1 gm In 50 Sodium Chloride 0.9% 50 ml @ 100 mls/hr IVPB Q12HR@0000,1200 [facility] Rx#: [id number] Output: Urine 500 Other: Voiding Method Indwelling Catheter Indwelling Catheter - Exam GENERAL DESCRIPTION: An elderly female lying in bed in no distress RESPIRATORY SYSTEM: Unlabored breathing , decreased breath sounds at bases HEART: S1 S2 regular rate and rhythm , ABDOMEN: Soft , no tenderness EXTREMITIES: No edema feet - Labs CBC & Chem 7: 03/11/21 03:04 03/11/21 03:04 Labs: Abnormal Lab Results - Last 24 Hours (Table) 03/11/21 03/11/21 Range/Units 03:04 03:04 MCHC 31.1 L (32.0-37.0) g/dL Immature Gran # 0.06 H (0.00-0.04) X 10*3/uL Lymphocytes # 0.86 L (0.90-5.00) X 10*3/uL Monocytes # 1.30 H (0.20-1.00) X 10*3/uL BUN/Creatinine Ratio 24.44 H (12.00-20.00) Ratio Glucose 124 H (70-110) mg/dL Conjugated Bilirubin <0.20 L (0.20-0.40) mg/dL AST 36 H (13-35) U/L Total Protein 5.9 L (6.2-8.2) g/dL Albumin 3.6 L (3.8-4.9) g/dL Albumin/Globulin Ratio 1.57 L (1.60-3.17) g/dL Microbiology - Last 24 Hours (Table) 03/06/21 12:44 Blood Culture - Preliminary Blood No Growth after 120 hours 03/09/21 11:01 Urine Culture - Final Urine,Clean Catch Assessment and Plan Plan: 1-patient admitted to the hospital with left leg pain and weakness in this patient who did have evidence of acute pontine infarct could explain her weakness will discuss further with you as in view of the low back pain and left leg weakness mildly elevated white count and a sed rate underlying lumbosacral spine infection needs to be ruled out patient was offered an MRI which the patient refused case was discussed with the neurology and apparently her pontine infarct could've is positive for the left leg weakness still recommending MRI to rule out any structural abnormality we'll discuss with the patient again tomorrow, continue with empiric Rocephin Time with Patient: Less than 30
--- NOTE | 2021-03-12 05:39 | P.CONS ---
History of Present Illness - Chief Complaint Gait disturbance, left hemiparesthesias - History of Present Illness I had the opportunity to see patient for inpatient rehab consultation with regard to gait disturbance. She was admitted to [facility] March 06 with acute onset left-sided weakness, choreoathetoid movements and diagnoses encephalopathy. Seen by neurology, Dr. Guzman. Note was also seen by ps ychiatry, Dr. Resendiz, diagnosed delirium. Seen by Dr. Jewell who notes inflammatory markers and treated prophylactically with Rocephin. Note initial head CT demonstrates infraorbital fatty tissue consistent Graves' disease. Second head CT demonstrates age related atrophy and ischemic changes. Liver ultrasound normal right upper quadrant. Chest x-ray negative. Left hand x-ray with only arthritis. Brain MRI demonstrates yaneth infarct and moderate atrophy and ischemic change. Has started therapy. PT reports two-person total assist for bed mobility. OT reports back assist upper dressing and two-person total assist for lower dressing and toileting. Speech therapy assess swallow and rec ommend mechanical soft. Previous function history elicited from patient: 81-year-old right-handed r ecently white female who lives in one floor home with granddaughter, who has cerebral palsy. Patient independent with cooking, laundry, driving, standing shower gait without device. Granddaughter can help with laundry. Patient PCP Dr. Herndon. Has a history smoking but doesn't smoke or drink currently. Review of Systems Review of systems: ENT: Denies sneezes or discharge. Eyes: Denies discharge or photophobia. Cardiac: Denies chest pain or palpitation. Pulmonary: Denies cough or shortness of breath. Breast: Denies discharge or lumps. Gastrointestinal: Denies nausea, emesis, constipation, diarrhea. Genitourinary: Denies discharge or frequency. Musculoskeletal: Denies muscle or bone aches. Neurologic: Left-sided weakness and choreoathetoid movements. Endocrine: Denies shakes or sweats. Oncology: Denies cancers. Dermatologic: Denies rash, itching, pruritus. ALLERGY/immunology: Denies sneezes, rashes. Past Medical History Past Medical History: Hypertension Additional Past Medical History / Comment(s): Per pt's daughter, pt has no pertinent medical history. History of Any Multi-Drug Resistant Organisms: None Reported Past Surgical History: No Surgical Hx Reported Additional Past Surgical History / Comment(s): Per pt's daughter, the patient had her hip replaced in 2008. cataract repair, tubal ligation Past Anesthesia/Blood Transfusion Reactions: Unable to Obtain Additional Past Anesthesia/Blood Transfusion Reaction / Comm: Sister's state pt is very sensitive to medications. Past Psychological History: No Psychological Hx Reported, Unable to Obtain Smoking Status: Never smoker Past Alcohol Use History: None Reported Past Drug Use History: None Reported - Past Family History Mother Family Medical History: No Reported History Additional Family Medical History / Comment(s): Mother is 98yrs old. Father Additional Family Medical History / Comment(s): Father in an accident at the age of 55yrs. Medications and Allergies Home Medications Medication Instructions Recorded Confirmed Type Allopurinol [Zyloprim] 300 mg PO DAILY 04/06/20 03/06/21 History Esomeprazole Magnesium [NexIUM] 20 mg PO DAILY 04/06/20 03/06/21 History Nebivolol HCl [Bystolic] 10 mg PO DAILY 04/06/20 03/06/21 History HYDROcodone/APAP 7.5-325MG [[place] 1 tab PO Q6HR PRN 03/06/21 03/06/21 History 7.5-325] Tolterodine ER [Detrol LA] 4 mg PO DAILY 03/06/21 03/06/21 History Allergies Allergy/AdvReac Type Severity Reaction Status Date / Time Penicillins Allergy Unknown Verified 03/06/21 09:34 Childhood Physical Exam Vitals: Vital Signs Temp Pulse Resp BP BP Pulse Ox 03/12/21 02:10 97.6 F 63 18 132/74 96 03/11/21 21:42 98.1 F 66 19 136/96 94 L 03/11/21 14:00 97.9 F 73 18 143/93 96 03/11/21 08:00 97.9 F 51 L 16 147/94 96 Intake and Output 03/11/21 03/11/21 03/12/21 14:59 22:59 06:59 Intake Total 50 Balance 50 Intake: Intake, IV Titration 50 Amount cefTRIAXone 1 gm In 50 Sodium Chloride 0.9% 50 ml @ 100 mls/hr IVPB Q12HR@0000,1200 [facility] Rx#: [id number] Other: Voiding Method Indwelling Catheter Indwelling Catheter Skin: Atrophic, intact. General: Thin build and comfortable appearance. Head: Normocephalic, atraumatic. Eyes: Symmetric. Pupils equal round. Ears: Symmetric. Hearing within normal limits. Mouth: Clear. Neck: Supple. Carotid without bruit. Cardiac: Regular rate and rhythm. Lungs: Clear anteriorly and posteriorly. Abdomen: Soft active nontender. Extremities: Normal tone. Neurological: Mental status: Alert, cooperative, pleasant. Cranial nerves: Symmetric facial tone and trapezius. Motor: Normal strength and isolation right side. Left side poor. Sensation: Intact throughout right side. DTRs: Symmetric and equal throughout. Mobility: Requires physical assist for bed mobility. Results CBC & Chem 7: 03/11/21 03:04 03/11/21 03:04 Labs: Abnormal Lab Results - Last 24 Hours (Table) 03/11/21 03/11/21 Range/Units 03:04 03:04 MCHC 31.1 L (32.0-37.0) g/dL Immature Gran # 0.06 H (0.00-0.04) X 10*3/uL Lymphocytes # 0.86 L (0.90-5.00) X 10*3/uL Monocytes # 1.30 H (0.20-1.00) X 10*3/uL BUN/Creatinine Ratio 24.44 H (12.00-20.00) Ratio Glucose 124 H (70-110) mg/dL Conjugated Bilirubin <0.20 L (0.20-0.40) mg/dL AST 36 H (13-35) U/L Total Protein 5.9 L (6.2-8.2) g/dL Albumin 3.6 L (3.8-4.9) g/dL Albumin/Globulin Ratio 1.57 L (1.60-3.17) g/dL Microbiology - Last 24 Hours (Table) 03/06/21 12:44 Blood Culture - Preliminary Blood No Growth after 120 hours Assessment and Plan (1) Choreoathetoid limb movements Current Visit: Yes Status: Acute Code(s): G25.5 - OTHER CHOREA SNOMED Code(s): 74546298 (2) Acute encephalopathy Current Visit: No Status: Acute Code(s): G93.40 - ENCEPHALOPATHY, UNSPECIFIED SNOMED Code(s): 07325492 (3) Chronic low back pain Current Visit: No Status: Acute Code(s): M54.5 - LOW BACK PAIN * DO NOT USE *; G89.29 - OTHER CHRONIC PAIN SNOMED Code(s): 423403279 (4) DDD (degenerative disc disease), thoracolumbar Current Visit: No Status: Acute Code(s): M51.35 - OTHER INTERVERTEBRAL DISC DEGENERATION, THORACOLUMBAR REGION SNOMED Code(s): 75124280 (5) DJD (degenerative joint disease), lumbosacral Current Visit: No Status: Acute Code(s): M47.817 - SPONDYLS W/O MYELOPATHY OR RADICULOPATHY, LUMBOSACR REGION SNOMED Code(s): 929980040 (6) Hypertension Current Visit: No Status: Acute Code(s): I10 - ESSENTIAL (PRIMARY) HYPERTENSION SNOMED Code(s): 67104213 Plan: Comments and plan: At this time PT and OT are ongoing. Safety concerns noted but currently requires two-person assistance and with limited endurance. Not quite ready for full inpatient rehab yet. Must determine what supports are for home and what is required for caregiver. We'll continue to follow with yourself.
[2021-03-12] MEDS: PANTOPRAZOLE 40 MG TABLET PO SCH (07:20)
[2021-03-12] MEDS: HEPARIN SODIUM,PORCINE/PF 5,000 UNIT/0.5 ML SYRINGE SQ SCH ×2 (07:20→16:48)
[2021-03-12] MEDS: HYDROcodone/APAP 7.5-325MG 1 EACH TAB PO PRN ×2 (08:07→14:51)
--- NOTE | 2021-03-12 08:51 | P.PN ---
Subjective Principal diagnosis: The patient is here essentially for choreoathetoid movements. She feels much better. There is slightly UTI. Appreciate neurology consultation. The patient is asking for slight increase in pain control No voiding difficulties Over the weekend, she had developed CVA now she has left facial droop. Appreciate multiple consultants input infectious diseases seen for and laboratory markers and rehab is also seen the patient. Neurology has been on the case consistently as well. Appreciate input. Objective - Vital Signs Vital signs: Vital Signs Temp 97.8 F 03/12/21 08:00 Pulse 61 03/12/21 08:00 Resp 18 03/12/21 02:10 BP 149/97 03/12/21 08:00 Pulse Ox 93 L 03/12/21 08:29 Intake & Output 03/11/21 03/12/21 03/12/21 18:59 06:59 18:59 Intake Total 50 Output Total 800 Balance 50 -800 Intake: Intake, IV Titration 50 Amount cefTRIAXone 1 gm In 50 Sodium Chloride 0.9% 50 ml @ 100 mls/hr IVPB Q12HR@0000,1200 [facility] Rx#: [id number] Output: Urine 800 Other: Voiding Method Indwelling Catheter Indwelling Catheter - Constitutional General appearance: Present: obese - EENT Eyes: Absent: abnormal pupil - Respiratory Respiratory: bilateral: CTA - Cardiovascular Rhythm: regular Heart sounds: normal: S1, S2 Abnormal Heart Sounds: Absent: S3 Gallop - Gastrointestinal General gastrointestinal: Present: soft. Absent: tenderness - Musculoskeletal Musculoskeletal Comment(s): Facial droop is noted - Psychiatric Psychiatric: Present: A&O x's 3 - Labs CBC & Chem 7: 03/11/21 03:04 03/11/21 03:04 Labs: Abnormal Lab Results - Last 24 Hours (Table) 03/11/21 03/11/21 Range/Units 03:04 03:04 MCHC 31.1 L (32.0-37.0) g/dL Immature Gran # 0.06 H (0.00-0.04) X 10*3/uL Lymphocytes # 0.86 L (0.90-5.00) X 10*3/uL Monocytes # 1.30 H (0.20-1.00) X 10*3/uL BUN/Creatinine Ratio 24.44 H (12.00-20.00) Ratio Glucose 124 H (70-110) mg/dL Conjugated Bilirubin <0.20 L (0.20-0.40) mg/dL AST 36 H (13-35) U/L Total Protein 5.9 L (6.2-8.2) g/dL Albumin 3.6 L (3.8-4.9) g/dL Albumin/Globulin Ratio 1.57 L (1.60-3.17) g/dL Microbiology - Last 24 Hours (Table) 03/06/21 12:44 Blood Culture - Preliminary Blood No Growth after 120 hours Assessment and Plan (1) Choreoathetoid limb movements Current Visit: Yes Status: Acute Code(s): G25.5 - OTHER CHOREA SNOMED Code(s): 90882527 (2) UTI (urinary tract infection) Current Visit: Yes Status: Acute Code(s): N39.0 - URINARY TRACT INFECTION, SITE NOT SPECIFIED SNOMED Code(s): 93563868 (3) Chronic low back pain Current Visit: No Status: Acute Code(s): M54.5 - LOW BACK PAIN * DO NOT USE *; G89.29 - OTHER CHRONIC PAIN SNOMED Code(s): 689490492 (4) DJD (degenerative joint disease), lumbosacral Current Visit: No Status: Acute Code(s): M47.817 - SPONDYLS W/O MYELOPATHY OR RADICULOPATHY, LUMBOSACR REGION SNOMED Code(s): 706067317 (5) Hypertension Current Visit: No Status: Acute Code(s): I10 - ESSENTIAL (PRIMARY) HYPERTENSION SNOMED Code(s): 75931372 Plan: Rehab placement. Multiple consultants input. Check CBC and CMP in a.m.
[2021-03-12] MEDS: CLOPIDOGREL 75 MG TAB PO SCH (09:08)
[2021-03-12] MEDS: ASPIRIN 81 MG PO SCH (09:08)
[2021-03-12] MEDS: allopurinoL 300 MG TAB PO SCH (09:08)
[2021-03-12] MEDS: OXYBUTYNIN XL 5 MG TAB.ER.24 PO SCH (09:09)
[2021-03-12] MEDS: NEBIVOLOL 5 MG TAB PO SCH (09:09)
[2021-03-12] MEDS: amLODIPine 5 MG TAB PO SCH (09:09)
--- NOTE | 2021-03-12 12:29 | P.PN ---
Subjective Progress Note Date: 03/12/21 I am seeing the patient for the first time during this admission for neurological management. Please refer to Dr. Guzman's note for further details. The patient is seen at bedside and she feels she is doing better today compared to her initial presentation. She continues to have left sided weakness. She denies of any new neurological issues. Per nurse pending discharge to rehab. Objective - Vital Signs Vital signs: Vital Signs Temp 97.8 F 03/12/21 08:00 Pulse 61 03/12/21 08:00 Resp 18 03/12/21 02:10 BP 149/97 03/12/21 08:00 Pulse Ox 93 L 03/12/21 08:29 Intake & Output 03/11/21 03/12/21 03/12/21 18:59 06:59 18:59 Intake Total 50 Output Total 800 Balance 50 -800 Intake: Intake, IV Titration 50 Amount cefTRIAXone 1 gm In 50 Sodium Chloride 0.9% 50 ml @ 100 mls/hr IVPB Q12HR@0000,1200 [facility] Rx#: [id number] Output: Urine 800 Other: Voiding Method Indwelling Catheter Indwelling Catheter Indwelling Catheter - Exam GENERAL: The patient is lying in bed and is not in acute distress. NEUROLOGICAL: Higher mental function: The patient is awake, alert, oriented to self, place and time. Patient is following commands. No aphasia and no neglect. Cranial nerves: The pupils are round, equal and reactive to light. Visual hernandez are full to confrontation throughout. Extraocular movement is intact no nystagmus is noted. The facial strength is mild left lower facial weakness. Tongue is midline and moved [id number] without any difficulty. No dysarthria is noted. Motor: The strength is left upper and lower is 3/5 would have episode of lifting above gravity then would drop on bed. Otherwise normal over the right side. Decrease tone over the left. Sensation: Sensation is normal to touch throughout. - Labs CBC & Chem 7: 03/11/21 03:04 03/11/21 03:04 Labs: Microbiology - Last 24 Hours (Table) 03/06/21 12:44 Blood Culture - Preliminary Blood No Growth after 120 hours Assessment and Plan Assessment: * Acute right pontine ischemic infarct. Etiology seems possible small vessel disease. * Left hemiparesis due to above * Hypertension, uncontrolled * Hyperlipidemia * Left wrist pain, unclear cause. * X tobacco use * UTI * Obesity Plan: * MRI of the brain revealed acute right pontine ischemic infarct. I personally reviewed the MRI and agree with the findings. * Continue aspirin 81 mg and Plavix 75 mg. * Lipid panel with cholesterol 192, LDL 120, HDL 44 and triglycerides 134. On Lipitor 40mg qhs. * Hemoglobin A1c 5.9. * 2-D echo revealed left ventricle is severely dilated. Moderate concentric LVH. Left ventricle systolic function is moderately impaired with EF between 35-40%. Basal inferior, basal inferior septal left-ventricular wall motion is hypokinetic. Ascending aorta is dilated measuring up to 43 mm. IM to address abnormal echo. Consider cardiology consult. * I placed the patient on tele-monitoring. Ordered event monitor for 30 days and to follow-up with cardiology team as outpatient. * Patient's CTA of head and neck from 04/05/2020 shows minimal atheromatous change in the carotid artery bifurcation. No evidence of hemodynamic stenosis. 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 No dissection. No significant intracranial angiographic abnormality. * Hepatic panel improved with most recent AST 36 and ALT 41. Hepatitis panel negative. * Patient on heparin 5000 as Q every 8 hours for DVT prophylaxis. * Pepcid 20 mg twice a day for gastric ulcer prophylaxis. * PT and OT and speech therapy are consulted. * Avoid anticholinergics, sedatives at this time. * Pending to be discharge to rehab. Dr. Iftikhar Rodriguez is consulted for inpatient rehab. * Upon discharge, patient needs to follow-up with neurologist as outpatient within 1-2 weeks. The plan is discussed with the patient' nurse. Ryan Navarro M.D. Neuro-Hospitalist Time with Patient: Less than 30
[2021-03-12] MEDS: LIDOCAINE 5% PATCH TOPICAL SCH (17:07)
[2021-03-12] MEDS: ATORVASTATIN 40 MG TAB PO SCH (21:55)
[2021-03-13] MEDS: HEPARIN SODIUM,PORCINE/PF 5,000 UNIT/0.5 ML SYRINGE SQ SCH ×3 (00:42→16:00)
[2021-03-13] MEDS: allopurinoL 300 MG TAB PO SCH (09:16)
[2021-03-13] MEDS: PANTOPRAZOLE 40 MG TABLET PO SCH (09:16)
[2021-03-13] MEDS: amLODIPine 5 MG TAB PO SCH (09:16)
[2021-03-13] MEDS: ASPIRIN 81 MG PO SCH (09:16)
[2021-03-13] MEDS: NEBIVOLOL 5 MG TAB PO SCH (09:17)
[2021-03-13] MEDS: OXYBUTYNIN XL 5 MG TAB.ER.24 PO SCH (09:17)
[2021-03-13] MEDS: CLOPIDOGREL 75 MG TAB PO SCH (09:17)
[2021-03-13 09:18] LABS: HGB 12.8 g/dL (12.0-15.0); MCH 28.9 pg (27.0-32.0); MCHC 31.2 g/dL (32.0-37.0); MCV 92.6 fL (80.0-97.0); Mean Platelet Volume 11.3 fL (9.5-12.2); NRBC Per 100 WBC 0 /100 WBCS (0.0-0.0); Platelet Count 210 X 10*3/uL (140-440); RBC 4.43 X 10*6/uL (4.10-5.20); RDW 12.9 % (11.5-14.5); WBC 7.26 X 10*3/uL (4.50-10.00)
[2021-03-13] MEDS: HYDROcodone/APAP 7.5-325MG 1 EACH TAB PO PRN ×2 (09:24→20:48)
--- NOTE | 2021-03-13 09:24 | P.PN ---
Subjective Principal diagnosis: The patient is here essentially for choreoathetoid movements. She feels much better. There is slightly UTI. Appreciate neurology consultation. The patient is asking for slight increase in pain control No voiding difficulties Over the weekend, she had developed CVA now she has left facial droop. Appreciate multiple consultants input infectious diseases seen for and laboratory markers and rehab is also seen the patient. Neurology has been on the case consistently as well. Appreciate input. She has continued left-sided weakness today. I did explain that we are trying to justify at her hospital physician to the insurance company later today. Otherwise rehab is planned. No voiding symptoms. She does complain of productive cough. Mucinex is been ordered Objective - Vital Signs Vital signs: Vital Signs Temp 98.6 F 03/13/21 09:20 Pulse 53 L 03/13/21 09:20 Resp 16 03/13/21 09:20 BP 150/89 03/13/21 09:20 Pulse Ox 90 L 03/13/21 09:20 Intake & Output 03/12/21 03/13/21 03/13/21 18:59 06:59 18:59 Intake Total 250 300 Output Total 400 400 Balance -400 -150 300 Intake: Oral 250 300 Output: Urine 400 400 Other: Voiding Method Indwelling Catheter Indwelling Catheter - Constitutional General appearance: Present: obese - EENT Eyes: Absent: abnormal pupil - Neck Neck: Absent: lymphadenopathy - Respiratory Respiratory: bilateral: diminished - Cardiovascular Rhythm: regular Heart sounds: normal: S1, S2 Abnormal Heart Sounds: Absent: S3 Gallop - Gastrointestinal General gastrointestinal: Present: soft. Absent: tenderness - Integumentary Integumentary: Present: normal - Musculoskeletal Musculoskeletal: Present: left sided weakness - Psychiatric Psychiatric: Present: A&O x's 3 - Labs CBC & Chem 7: 03/13/21 03:21 03/11/21 03:04 Labs: Abnormal Lab Results - Last 24 Hours (Table) 03/13/21 Range/Units 03:21 MCHC 31.2 L (32.0-37.0) g/dL Microbiology - Last 24 Hours (Table) 03/06/21 12:44 Blood Culture - Final Blood No Growth after 144 hours Assessment and Plan (1) Choreoathetoid limb movements Current Visit: Yes Status: Acute Code(s): G25.5 - OTHER CHOREA SNOMED Code(s): 43716795 (2) UTI (urinary tract infection) Current Visit: Yes Status: Acute Code(s): N39.0 - URINARY TRACT INFECTION, SITE NOT SPECIFIED SNOMED Code(s): 15754351 (3) Chronic low back pain Current Visit: No Status: Acute Code(s): M54.5 - LOW BACK PAIN * DO NOT USE *; G89.29 - OTHER CHRONIC PAIN SNOMED Code(s): 577298792 (4) DJD (degenerative joint disease), lumbosacral Current Visit: No Status: Acute Code(s): M47.817 - SPONDYLS W/O MYELOPATHY OR RADICULOPATHY, LUMBOSACR REGION SNOMED Code(s): 495655020 (5) Hypertension Current Visit: No Status: Acute Code(s): I10 - ESSENTIAL (PRIMARY) HYPERTENSION SNOMED Code(s): 23427996 (6) Right pontine cerebrovascular accident Current Visit: Yes Status: Acute Code(s): I63.50 - CEREB INFRC DUE TO UNSP OCCLS OR STENOS OF UNSP CEREB ARTERY SNOMED Code(s): 525732935 Plan: Rehab placement. Continue current rehab support. Appreciate multiple consultants input. Check CBC and CMP in a.m.
[2021-03-13] MEDS ORDERED: guaiFENesin-DM 100-10MG/5ML 10 ML CUP PO PRN (09:26)
[2021-03-13 09:29] LABS: African American GFR (CKD) 81.3 (60.0-200.0); Albumin 3.3 g/dL (3.8-4.9); Albumin/Globulin Ratio 1.38 (1.60-3.17); Anion Gap 13.7 mmol/L (10.00-18.00); BUN/Creat Ratio 18.13 Ratio (12.00-20.00); Blood Urea Nitrogen 14.5 mg/dL (9.0-27.0); Calcium 9.1 mg/dL (8.7-10.3); Carbon Dioxide 21.3 mmol/L (20.0-27.5); Globulin 2.4 g/dL (1.6-3.3); Non-African American GFR(CKD) 70.1 (60.0-200.0); Potassium 3.6 mmol/L (3.5-5.5); Total Bilirubin 0.2 mg/dL (0.30-1.20); Total Protein 5.7 g/dL (6.2-8.2)
--- NOTE | 2021-03-13 11:34 | P.PN ---
Subjective Progress Note Date: 03/13/21 The patient is seen at bedside and she feels she is doing better today compared to yesterday and feels her strength is slowly gaining. She denies of any new neurological problems. She is pending to be discharged to rehab. Objective - Vital Signs Vital signs: Vital Signs Temp 98.6 F 03/13/21 09:20 Pulse 53 L 03/13/21 09:20 Resp 16 03/13/21 09:20 BP 150/89 03/13/21 09:20 Pulse Ox 90 L 03/13/21 09:20 Intake & Output 03/12/21 03/13/21 03/13/21 18:59 06:59 18:59 Intake Total 250 300 Output Total 400 400 Balance -400 -150 300 Intake: Oral 250 300 Output: Urine 400 400 Other: Voiding Method Indwelling Catheter Indwelling Catheter - Exam GENERAL: The patient is lying in bed and is not in acute distress. NEUROLOGICAL: Higher mental function: The patient is awake, alert, oriented to self, place and time. Patient is following commands. No aphasia and no neglect. Cranial nerves: The pupils are round, equal and reactive to light. Visual hernandez are full to confrontation throughout. Extraocular movement is intact no nystagmus is noted. The facial strength is mild left lower facial weakness. Tongue is midline and moved [id number] without any difficulty. No dysarthria is noted. Motor: The strength is left upper and lower is 3-4/5 would have episode of lifting above gravity then would drop on bed. Otherwise normal over the right side. Decrease tone over the left. Sensation: Sensation is normal to touch throughout. - Labs CBC & Chem 7: 03/13/21 03:21 03/13/21 03:21 Labs: Abnormal Lab Results - Last 24 Hours (Table) 03/13/21 03/13/21 Range/Units 03: 03:21 MCHC 31.2 L (32.0-37.0) g/dL Total Bilirubin 0.20 L (0.30-1.20) mg/dL Total Protein 5.7 L (6.2-8.2) g/dL Albumin 3.3 L (3.8-4.9) g/dL Albumin/Globulin Ratio 1.38 L (1.60-3.17) g/dL Microbiology - Last 24 Hours (Table) 03/06/21 12:44 Blood Culture - Final Blood No Growth after 144 hours Assessment and Plan Assessment: * Acute right pontine ischemic infarct. Etiology seems possible small vessel disease. * Left hemiparesis due to above * Hypertension--currently better controlled * Hyperlipidemia * Left wrist pain, unclear cause. * X tobacco use * UTI * Obesity Plan: * MRI of the brain revealed acute right pontine ischemic infarct. I personally reviewed the MRI and agree with the findings. * Continue aspirin 81 mg and Plavix 75 mg (patient stated she was not on antiplatelets prior to this). Recommend patient to be on dual antiplatelets for total of 21 days then after than stop Plavix (last day is 03/28/2021) but continue ASA indefinitely. * Lipid panel with cholesterol 192, LDL 120, HDL 44 and triglycerides 134. On Lipitor 40mg qhs. * Hemoglobin A1c 5.9. * 2-D echo revealed left ventricle is severely dilated. Moderate concentric LVH. Left ventricle systolic function is moderately impaired with EF between 35-40%. Basal inferior, basal inferior septal left-ventricular wall motion is hypokinetic. Ascending aorta is dilated measuring up to 43 mm. IM to address abnormal echo. Consider cardiology consult. * Continue tele-monitoring but so far no clear A-fib or flutter per telemetry nurse. Ordered event monitor for 30 days and to follow-up with cardiology team as outpatient. * Patient's CTA of head and neck from 04/05/2020 shows minimal atheromatous change in the carotid artery bifurcation. No evidence of hemodynamic stenosis. 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 No dissection. No significant intracranial angiographic abnormality. * Hepatic panel improved with most recent AST 36 and ALT 41. Hepatitis panel negative. * Patient on heparin 5000 as Q every 8 hours for DVT prophylaxis. * Pepcid 20 mg twice a day for gastric ulcer prophylaxis. * PT and OT and speech therapy are consulted. * Avoid anticholinergics, sedatives at this time. * Pending to be discharge to rehab. Dr. Iftikhar Rodriguez is consulted for inpatient rehab. I feel patient would be would benefit from inpatient rehab. * Upon discharge, patient needs to follow-up with neurologist as outpatient within 1-2 weeks. The plan is discussed with the patient' nurse. Ryan Navarro M.D. Neuro-Hospitalist Time with Patient: Less than 30
--- NOTE | 2021-03-13 11:47 | P.CRDCN ---
History of Present Illness History of present illness: HISTORY OF PRESENTING ILLNESS This is a pleasant 81-year-old female past medical history significant for hypertension any hyperlipidemia, former smoker. 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 We have been asked to see in consultation for atrial fibrillation. Patient presents to the emergency department on 03/06/2021 with symptoms of involuntary movements of the left lower extremity. MRI of the brain revealed acute infarct involving the yaneth. Hospitalization was also complicated by acute delirium attributed to medication which has improved. Yesterday, there was concern that patient's heart rate was irregular, no EKG was performed, patient was placed on telemetry. Telemetry reviewed, patient in sinus mechanism HR 60s- 70s, with PACs and PVCs, no evidence of atrial fibrillation at this point. Patient states that she think has been told her had atrial fibrillation by primary many years ago, she was not put on anticoagulation. She denies history of coronary artery disease, diabetes or PR. DIAGNOSTICS EKG reveals sinus rhythm, PACs, heart rate 82 Telemetry tracings indicate sinus mechanism HR 60-70s with PACs and PVCs MRI of the brain revealed acute infarct involving the yaneth. 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 Laboratory reviewed, WBC 7.6, hemoglobin 12.8, platelets 210, sodium 139, potassium 3.6, BUN 14, serum creatinine 0.8, troponin on admission was negative Current cardiac medications include aspirin 81 mg daily, amlodipine 5 mg daily, atorvastatin 40 mg nightly, Plavix 75 mg daily, bystolic 10mg daily Echocardiogram on 03/08/21 revealed an EF of 3540%, basal inferior LV and basal inferior septal LV wall hypokinetic, mild to moderate mitral regurgitation, ascending aorta is dilated at 43 mm. Prior echocardiogram in 03/2020 revealed EF 5055% REVIEW OF SYSTEMS At the time of my exam: CONSTITUTIONAL: Denies fever or chills. CARDIOVASCULAR: Denies chest pain, shortness of breath, orthopnea, PND or palpitations. RESPIRATORY: Denies cough. GASTROINTESTINAL: Denies abdominal pain, diarrhea, constipation, nausea or vomiting. MUSCULOSKELETAL: Denies myalgias. NEUROLOGIC: Denies numbness, tingling, headacbe or weakness. ENDOCRINE: Denies fatigue, weight change, polydipsia or polyurina. GENITOURINARY: Denies burning, hematuria or urgency with micturation. HEMATOLOGIC: Denies history of anemia or bleeding. PHYSICAL EXAMINATION Blood pressure 150/89, heart rate 53, afebrile, oxygen saturation greater than 92% on 3 L nasal cannula CONSTITUTIONAL: No apparent distress. HEENT: Head is normocephalic. Pupils are equal, round. Sclerae anicteric. Mucous membranes of the mouth are moist. No JVD. No carotid bruit. CHEST EXAMINATION: Lungs are clear to auscultation. No chest wall tenderness is noted on palpation or with deep breathing. HEART EXAMINATION: Regular rate and rhythm. S1, S2 heard. Systolic ejection murmur at apex, no gallops or rub. ABDOMEN: Soft, nontender. Positive bowel sounds. EXTREMITIES: 2+ peripheral pulses, no lower extremity edema and no calf tenderness. NEUROLOGIC EXAMINATION: Patient is awake, alert and oriented x3. ASSESSMENT Acute right infarct involving the yaneth Cardiomyopathy with EF 35-40%, ischemic vs nonischemic etiology unclear at this time Premature atrial complexes Hypertension Hyperlipidemia PLAN No evidence of atrial fibrillation noted on telemetry patient in sinus mechanism with PACs and occassional PVCs. Repeat EKG this morning revealed sinus bradycardia HR 54, with PACs, T wave inversion in leads V2-V3 and aVL. We will discontinue amlodipine and start losartan 25mg daily. Patient is also maintained on aspirin, statin, plavix 30 day event monitor has been ordered Monitor patient on telemetry for 24 hours Cardiomyopathy workup needs to be completed, this can be done as an outpatient Recommend follow up with Dr. Causey as an outpatient Nurse Practitioner note has been reviewed, I agree with a documented findings and plan of care. Patient was seen and examined. Past Medical History Past Medical History: Hypertension Additional Past Medical History / Comment(s): Per pt's daughter, pt has no p ertinent medical history. History of Any Multi-Drug Resistant Organisms: None Reported Past Surgical History: No Surgical Hx Reported Additional Past Surgical History / Comment(s): Per pt's daughter, the patient had her hip replaced in 2008. cataract repair, tubal ligation Past Anesthesia/Blood Transfusion Reactions: Unable to Obtain Additional Past Anesthesia/Blood Transfusion Reaction / Comment(s): Sister's state pt is very sensitive to medications. Past Psychological History: No Psychological Hx Reported, Unable to Obtain Smoking Status: Never smoker Past Alcohol Use History: None Reported Past Drug Use History: None Reported - Past Family History Mother Family Medical History: No Reported History Additional Family Medical History / Comment(s): Mother is 98yrs old. Father Additional Family Medical History / Comment(s): Father in an accident at the age of 55yrs. Medications and Allergies Home Medications Medication Instructions Recorded Confirmed Type Allopurinol [Zyloprim] 300 mg PO DAILY 04/06/20 03/06/21 History Esomeprazole Magnesium [NexIUM] 20 mg PO DAILY 04/06/20 03/06/21 History Nebivolol HCl [Bystolic] 10 mg PO DAILY 04/06/20 03/06/21 History HYDROcodone/APAP 7.5-325MG [[place] 1 tab PO Q6HR PRN 03/06/21 03/06/21 History 7.5-325] Tolterodine ER [Detrol LA] 4 mg PO DAILY 03/06/21 03/06/21 History Allergies Allergy/AdvReac Type Severity Reaction Status Date / Time Penicillins Allergy Unknown Verified 03/06/21 09:34 Childhood Physical Exam Vitals: Vital Signs Temp Pulse Resp BP BP Pulse Ox 03/13/21 09:20 98.6 F 53 L 16 150/89 90 L 03/13/21 02:00 98.4 F 62 18 129/86 94 L 03/12/21 19:35 98.6 F 54 L 134/81 94 L Intake and Output 03/12/21 03/13/21 03/13/21 22:59 06:59 14:59 Intake Total 250 300 Output Total 400 400 Balance -150 -400 300 Intake: Oral 250 300 Output: Urine 400 400 Other: Voiding Method Indwelling Catheter Results 03/13/21 03:21 03/13/21 03:21 Cardiac Enzymes 03/13/21 Range/Units 03:21 AST 23 (13-35) U/L CBC 03/13/21 Range/Units 03:21 WBC 7.26 (4.50-10.00) X 10*3/uL RBC 4.43 (4.10-5.20) X 10*6/uL Hgb 12.8 (12.0-15.0) g/dL Hct 41.0 (37.2-46.3) % Plt Count 210 (140-440) X 10*3/uL Comprehensive Metabolic Panel 03/13/21 Range/Units 03:21 Sodium 139 (135-145) mmol/L Potassium 3.6 (3.5-5.5) mmol/L Chloride 104 (96-109) mmol/L Carbon Dioxide 21.3 (20.0-27.5) mmol/L BUN 14.5 (9.0-27.0) mg/dL Creatinine 0.8 (0.6-1.5) mg/dL Glucose 110 (70-110) mg/dL Calcium 9.1 (8.7-10.3) mg/dL AST 23 (13-35) U/L ALT 30 (8-44) U/L Alkaline Phosphatase 56 (41-126) U/L Total Protein 5.7 L (6.2-8.2) g/dL Albumin 3.3 L (3.8-4.9) g/dL Current Medications Generic Name Dose Route Start Last Admin Trade Name Freq PRN Reason Stop Dose Admin Acetaminophen 650 mg 03/06/21 07:20 03/10/21 22:58 Acetaminophen Tab 325 Mg Tab PO 650 mg Q6HR PRN Administration Mild Pain or Fever > 100.5 Hydrocodone Bitart/Acetaminophen 1 each 03/11/21 11:17 03/13/21 09:24 Hydrocodone/Apap 7.5-325mg 1 Each Tab PO 1 each BID PRN Administration Pain Allopurinol 300 mg 03/07/21 09:00 03/13/21 09:16 Allopurinol 300 Mg Tab PO 300 mg DAILY BROOKS Administration Amlodipine Besylate 5 mg 03/08/21 11:45 03/13/21 09:16 Amlodipine 5 Mg Tab PO 5 mg DAILY BROOKS Administration Aspirin 81 mg 03/08/21 09:00 03/13/21 09:16 Aspirin 81 Mg PO 81 mg DAILY BROOKS Administration Atorvastatin Calcium 40 mg 03/08/21 21:00 03/12/21 21:55 Atorvastatin 40 Mg Tab PO 40 mg HS BROOKS Administration Clopidogrel Bisulfate 75 mg 03/07/21 12:15 03/13/21 09:17 Clopidogrel 75 Mg Tab PO 75 mg DAILY BROOKS Administration Guaifenesin/Dextromethorphan 10 ml 03/13/21 09:26 Guaifenesin-Dm 100-10mg/5ml 10 Ml Cup PO Q6HR PRN Cough Heparin Sodium (Porcine) 5,000 unit 03/09/21 17:00 03/13/21 09:16 Heparin Sodium,Porcine/Pf 5,000 Unit/0.5 Ml Syringe SQ 5,000 unit Q8HR BROOKS Administration Ceftriaxone Sodium 1 gm/ 50 mls @ 100 mls/hr 03/09/21 16:00 03/13/21 00:42 Sodium Chloride IVPB 100 mls/hr Q12HR@0000,1200 BROOKS Administration Labetalol HCl 20 mg 03/06/21 19:45 Labetalol 5 Mg/Ml Vial Mdv IVP Q10M PRN HIGH BLOOD PRESSURE Lidocaine 1 patch 03/11/21 18:00 03/12/21 17:07 Lidocaine 5% Patch TOPICAL 1 patch DAILY@1800 BROOKS Administration Protocol Miscellaneous Information 1 each 03/10/21 16:47 Potassium Replacement Protocol 1 Each Misc MISCELLANE DAILY PRN Per Protocol Protocol Miscellaneous Information 1 each 03/10/21 16:47 Magnesium Replacement Protocol 1 Each Misc MISCELLANE DAILY PRN Per Protocol Protocol Naloxone HCl 0.2 mg 03/06/21 07:09 Naloxone 0.4 Mg/Ml 1 Ml Vial IV Q2M PRN Opioid Reversal Nebivolol 10 mg 03/07/21 09:00 03/13/21 09:17 Nebivolol 5 Mg Tab PO 10 mg DAILY BROOKS Administration Oxybutynin Chloride 10 mg 03/07/21 09:00 03/13/21 09:17 Oxybutynin Xl 5 Mg Tab.Er.24 PO 10 mg DAILY BROOKS Administration Pantoprazole Sodium 40 mg 03/08/21 07:30 03/13/21 09:16 Pantoprazole 40 Mg Tablet PO 40 mg AC-BRKFST BROOKS Administration Ropinirole HCl 0.25 mg 03/08/21 14:44 Ropinirole Hcl 0.25 Mg Tab PO BID PRN restless leg sx Intake and Output 03/12/21 03/13/21 03/13/21 22:59 06:59 14:59 Intake Total 250 300 Output Total 400 400 Balance -150 -400 300 Intake: Oral 250 300 Output: Urine 400 400 Other: Voiding Method Indwelling Catheter 03/13/21 03:21 03/13/21 03:21
[2021-03-13 12:07] VITALS: BMI 30.7
--- NOTE | 2021-03-13 12:14 | XR ---
EXAMINATION TYPE: XR cervical spine limited DATE OF EXAM: 03/13/2021 CLINICAL HISTORY: pain TECHNIQUE: 3 views of the cervical spine are submitted. COMPARISON: None. FINDINGS: There is 2.4 mm anterior subluxation of C3 on C4 likely related to degenerative change of t he cervical apophyseal joints. Alignment is otherwise within normal limits. There is no evidence for fracture. Scattered degenerative disc space narrowing is noted at C5-6 and C6-7. Ventral and dorsal s pondylosis. IMPRESSION: No acute fracture is seen in the cervical spine.
[2021-03-13] MEDS: LOSARTAN 25 MG TAB PO SCH (12:25)
--- NOTE | 2021-03-13 13:11 | US ---
EXAMINATION TYPE: US carotid duplex BILAT DATE OF EXAM: 03/08/2021 COMPARISON: CTA 04/05/2020 CLINICAL HISTORY: CVA. EXAM MEASUREMENTS: RIGHT: Peak Systolic Velocity (PSV) cm/sec ----- Right CCA: 46.9 ----- Right ICA: 49.8 ----- Right ECA: 49.0 ICA/CCA ratio: 1.1 RIGHT: End Diastole cm/sec ----- Right CCA: 19.1 ----- Right ICA: 19.1 ----- Right ECA: 6.3 LEFT: Peak Systolic Velocity (PSV) cm/sec ----- Left CCA: 46.1 ----- Left ICA: 60.1 ----- Left ECA: 47.9 ICA/CCA ratio: 1.3 LEFT: End Diastole cm/sec ----- Left CCA: 15.3 ----- Left ICA: 20.0 ----- Left ECA: 6.0 VERTEBRALS (direction of flow): Right Vertebral: Antegrade Left Vertebral: Antegrade Rhythm: Arrhythmia Mild atheromatous plaquing without significant flow-limiting stenosis. No significant mild stenosis s een. IMPRESSION: 1. Mild plaquing without flow-limiting stenosis. Criteria for Assigning % of Stenosis / Diameter reduction (Estimation based on the indirect measurements of the internal carotid artery velocities (ICA PSV). 1. Normal (no stenosis)=ICA PSV < 125 cm/s: ratio < 2.0: ICA EDV<40 cm/s. 2. Less than 50% stenosis=ICA PSV < 125 cm/s: ratio < 2.0: ICA EDV<40 cm/s. 3. 50 to 69% stenosis=ICA PSV of 125 to 230 cm/s: ration 2.0 ? 4.0: ICA EDV 40-100 cm/s. 4. Greater than 70% stenosis to near occlusion= ICA PSV > 230 cm/s: ratio > 4.0: ICA EDV > 100 cm/s. 5. Near occlusion= ICA PSV velocities may be low or undetectable: variable ratio and ICA EDV. 6. Total occlusion=unable to detect flow.
[2021-03-13] MEDS: LIDOCAINE 5% PATCH TOPICAL SCH (17:00)
[2021-03-13] MEDS: ATORVASTATIN 40 MG TAB PO SCH (20:48)
--- NOTE | 2021-03-13 21:39 | P.PN ---
Subjective Progress Note Date: 03/12/21 Principal diagnosis: Fever Patient is 81 year female presenting to the hospital for evaluation of left leg pain and weakness in this patient did have a history of chronic back pain no recent worsening patient did have MRI of the brain with evidence of acute right pontine ischemic infarct. On today's evaluation that is 03/12/2021, the patient remains to be afebrile, th e patient is breathing comfortably, the patient denies any chest pain shortness of breath or cough no abdominal pain no back pain is currently controlled and denies any worsening weakness to the left leg no bowel or bladder problem Objective - Vital Signs Vital signs: Vital Signs Temp 98.6 F 03/12/21 19:35 Pulse 54 L 03/12/21 19:35 Resp 18 03/12/21 02:10 BP 134/81 03/12/21 19:35 Pulse Ox 94 L 03/12/21 19:35 Intake & Output 03/12/21 03/12/21 03/13/21 06:59 18:59 06:59 Output Total 800 400 Balance -800 -400 Output: Urine 800 400 Other: Voiding Method Indwelling Catheter Indwelling Catheter - Exam GENERAL DESCRIPTION: An elderly female lying in bed in no distress RESPIRATORY SYSTEM: Unlabored breathing , decreased breath sounds at bases HEART: S1 S2 regular rate and rhythm , ABDOMEN: Soft , no tenderness EXTREMITIES: No edema feet - Labs CBC & Chem 7: 03/13/21 03:21 03/13/21 03:21 Labs: Microbiology - Last 24 Hours (Table) 03/06/21 12:44 Blood Culture - Final Blood No Growth after 144 hours Assessment and Plan Plan: 1-patient admitted to the hospital with left leg pain and weakness in this patient who did have evidence of acute pontine infarct could explain her weakness as per discussion with the neurologist patient to continue with the empiric Rocephin this point and monitor clinical course closely Time with Patient: Less than 30
--- NOTE | 2021-03-13 21:41 | P.PN ---
Subjective Progress Note Date: 03/13/21 Principal diagnosis: Fever Patient is 81 year female presenting to the hospital for evaluation of left leg pain and weakness in this patient did have a history of chronic back pain no recent worsening patient did have MRI of the brain with evidence of acute right pontine ischemic infarct. On today's evaluation that is 03/13/2021, the patient continues to be afebrile, the patient is breathing comfortably however is requiring supplemental oxygen, the patient denies any chest pain shortness of breath or cough no abdominal pain no back pain is currently controlled and denies any worsening weakness to the left leg and no diarrhea Objective - Vital Signs Vital signs: Vital Signs Temp 98.6 F 03/13/21 20:47 Pulse 66 03/13/21 20:47 Resp 16 03/13/21 20:47 BP 138/81 03/13/21 20:47 Pulse Ox 94 L 03/13/21 20:47 Intake & Output 03/13/21 03/13/21 03/14/21 06:59 18:59 06:59 Intake Total 250 1380 Output Total 400 600 Balance -150 780 Weight 83.915 kg Intake: Oral 250 1380 Output: Urine 400 600 Other: Voiding Method Indwelling Catheter Indwelling Catheter Indwelling Catheter - Exam GENERAL DESCRIPTION: An elderly female lying in bed in no distress RESPIRATORY SYSTEM: Unlabored breathing , decreased breath sounds at bases HEART: S1 S2 regular rate and rhythm , ABDOMEN: Soft , no tenderness EXTREMITIES: No edema feet - Labs CBC & Chem 7: 03/13/21 03:21 03/13/21 03:21 Labs: Abnormal Lab Results - Last 24 Hours (Table) 03/13/21 03/13/21 Range/Units 03:21 03:21 MCHC 31.2 L (32.0-37.0) g/dL Total Bilirubin 0.20 L (0.30-1.20) mg/dL Total Protein 5.7 L (6.2-8.2) g/dL Albumin 3.3 L (3.8-4.9) g/dL Albumin/Globulin Ratio 1.38 L (1.60-3.17) g/dL Assessment and Plan Plan: 1-patient admitted to the hospital with left leg pain and weakness in this patient who did have evidence of acute pontine infarct could explain her weakness as per discussion with the neurologist patient urine is negative chest x-ray was negative for any acute process within no obvious focus of infection and negative culture we will discontinue Rocephin and monitor the patient closely off antibiotic therapy Time with Patient: Less than 30
[2021-03-14] MEDS: HEPARIN SODIUM,PORCINE/PF 5,000 UNIT/0.5 ML SYRINGE SQ SCH ×2 (00:50→07:39)
[2021-03-14 03:59] LABS: HCT 39.5 % (34.0-46.0); HGB 12.4 gm/dL (11.4-16.0); MCH 29.1 pg (25.0-35.0); MCHC 31.4 g/dL (31.0-37.0); MCV 92.8 fL (80.0-100.0); Mean Platelet Volume 7.7; Platelet Count 198 k/uL (150-450); RBC 4.25 m/uL (3.80-5.40); RDW 12.7 % (11.5-15.5); WBC 5.6 k/uL (3.8-10.6)
[2021-03-14 04:12] LABS: ALT 22 U/L (4-34); AST 24 U/L (14-36); African American GFR (CKD) 80 (>60 ml/min/1.73 sqM); Albumin 2.7 g/dL (3.5-5.0); Alkaline Phosphatase 49 U/L (38-126); Anion Gap 6 mmol/L; Blood Urea Nitrogen 15 mg/dL (7-17); Calcium 8.8 mg/dL (8.4-10.2); Carbon Dioxide 25 mmol/L (22-30); Chloride 105 mmol/L (98-107); Globulin 2.7 g/dL; Glucose 100 mg/dL (74-99); Non-African American GFR(CKD) 70 (>60 ml/min/1.73 sqM); Potassium 3.2 mmol/L (3.5-5.1); Sodium 136 mmol/L (137-145); Total Bilirubin 0.4 mg/dL (0.2-1.3); Total Protein 5.4 g/dL (6.3-8.2)
[2021-03-14] MEDS: allopurinoL 300 MG TAB PO SCH (07:40)
[2021-03-14] MEDS: CLOPIDOGREL 75 MG TAB PO SCH (07:40)
[2021-03-14] MEDS: LOSARTAN 25 MG TAB PO SCH (07:40)
[2021-03-14] MEDS: PANTOPRAZOLE 40 MG TABLET PO SCH (07:40)
[2021-03-14] MEDS: ASPIRIN 81 MG PO SCH (07:40)
[2021-03-14] MEDS: POTASSIUM CHLORIDE ER 20 MEQ TAB.ER PO SCH ×2 (07:41→08:58)
[2021-03-14] MEDS: OXYBUTYNIN XL 5 MG TAB.ER.24 PO SCH (07:41)
[2021-03-14] MEDS: NEBIVOLOL 5 MG TAB PO SCH (07:42)
--- NOTE | 2021-03-14 08:08 | P.DS ---
Providers Date of admission: 03/08/21 10:49 Attending physician: Blayne Herndon Consults: 03/06/21 07:21 Consult Physician Urgent Consulting Provider: Ashley Guzman Consult Reason/Comments: Choreoathetoid movement Do you want consulting provider notified?: Yes 03/08/21 11:39 Consult Physician Urgent Consulting Provider: Dayton Harris Consult Reason/Comments: acute delirium and hallucination Do you want consulting provider notified?: Yes 03/09/21 10:15 Consult Physician Urgent Consulting Provider: Nicky Jewell Consult Reason/Comments: fever, cellulitis vs others Do you want consulting provider notified?: Yes 03/11/21 14:26 Consult Physician Routine Consulting Provider: Iftikhar Rodriguez Consult Reason/Comments: evaluate for inpatient rehab Do you want consulting provider notified?: Yes 03/12/21 14:58 Consult Physician Routine Consulting Provider: Kim Dean Consult Reason/Comments: a-fib Do you want consulting provider notified?: Yes Primary care physician: Blayne Herndon - Discharge Diagnosis(es) (1) Choreoathetoid limb movements Current Visit: Yes Status: Acute (2) UTI (urinary tract infection) Current Visit: Yes Status: Acute (3) Chronic low back pain Current Visit: No Status: Acute (4) DJD (degenerative joint disease), lumbosacral Current Visit: No Status: Acute (5) Hypertension Current Visit: No Status: Acute (6) Right pontine cerebrovascular accident Current Visit: Yes Status: Acute Hospital Course: This is a discharge summary 81-year-old white female who was admitted for choreoathetoid movements. This should happen in the remote past. Initial workup did not show significant new changes. However within 48 hours of admission, she suffered CVA. MRI which was withheld due to the family's wishes initially, was done which showed pontine stroke on the right acutely. She was stabilized with appropriate treatment neurology has been consulted and she is now recovering. The patient will be sent to rehab for appropriate treatment. The patient is now stable tolerating diet and voiding without difficulty and will be discharged once bed available at rehab facility. Patient Condition at Discharge: Stable Plan - Discharge Summary Discharge Rx Participant: No New Discharge Prescriptions: New Clopidogrel [Plavix] 75 mg PO DAILY #30 tab guaiFENesin-DM 100-10MG/5ML [Robitussin DM] 10 ml PO Q6HR PRN #200 ml PRN Reason: Cough Acetaminophen Tab [Tylenol] 650 mg PO Q6HR PRN tab PRN Reason: Mild Pain Or Fever > 100.5 Aspirin 81 mg PO DAILY Losartan [Cozaar] 25 mg PO DAILY #30 tab Lidocaine 5% Patch [Lidoderm 5% Patch] 1 patch TOPICAL DAILY@1800 #30 patch Atorvastatin [Lipitor] 40 mg PO HS #30 tab Pantoprazole [Protonix] 40 mg PO AC-BRKFST #30 tab rOPINIRole HCL [Requip] 0.25 mg PO BID PRN #60 tab PRN Reason: restless leg sx Continue Nebivolol HCl [Bystolic] 10 mg PO DAILY Esomeprazole Magnesium [NexIUM] 20 mg PO DAILY Allopurinol [Zyloprim] 300 mg PO DAILY Tolterodine ER [Detrol LA] 4 mg PO DAILY HYDROcodone/APAP 7.5-325MG [[place] 7.5-325] 1 tab PO Q6HR PRN #120 tab PRN Reason: Pain Discharge Medication List Allopurinol [Zyloprim] 300 mg PO DAILY 04/06/20 [History] Esomeprazole Magnesium [NexIUM] 20 mg PO DAILY 04/06/20 [History] Nebivolol HCl [Bystolic] 10 mg PO DAILY 04/06/20 [History] Tolterodine ER [Detrol LA] 4 mg PO DAILY 03/06/21 [History] Acetaminophen Tab [Tylenol] 650 mg PO Q6HR PRN tab 03/14/21 [Rx] Aspirin 81 mg PO DAILY 03/14/21 [Rx] Atorvastatin [Lipitor] 40 mg PO HS #30 tab 03/14/21 [Rx] Clopidogrel [Plavix] 75 mg PO DAILY #30 tab 03/14/21 [Rx] HYDROcodone/APAP 7.5-325MG [[place] 7.5-325] 1 tab PO Q6HR PRN #120 tab 03/14/21 [Rx] Lidocaine 5% Patch [Lidoderm 5% Patch] 1 patch TOPICAL DAILY@1800 #30 patch 03/14/21 [Rx] Losartan [Cozaar] 25 mg PO DAILY #30 tab 03/14/21 [Rx] Pantoprazole [Protonix] 40 mg PO AC-BRKFST #30 tab 03/14/21 [Rx] guaiFENesin-DM 100-10MG/5ML [Robitussin DM] 10 ml PO Q6HR PRN #200 ml 03/14/21 [Rx] rOPINIRole HCL [Requip] 0.25 mg PO BID PRN #60 tab 03/14/21 [Rx] Follow up Appointment(s)/Referral(s): Blayne Herndon MD [Primary Care Provider] - 2 Weeks Carlyle Causey MD [STAFF PHYSICIAN] - 2 Weeks Discharge Disposition: TRANSFER TO SNF/ECF
[2021-03-14] MEDS: HYDROcodone/APAP 7.5-325MG 1 EACH TAB PO PRN (08:09)
--- NOTE | 2021-03-14 09:52 | P.PN ---
Subjective This is a pleasant 81-year-old female past medical history significant for hypertension any hyperlipidemia, former smoker. She denies history of coronary artery disease, diabetes or CO. She does not follow with a metrology engineer. We have been asked to see in consultation for atrial fibrillation. Patient presents to the emergency department on 03/06/2021 with symptoms of involuntary movements of the left lower extremity. MRI of the brain revealed acute infarct involving the yaneth. Hospitalization was also complicated by acute delirium attributed to medication which has improved. On 03/12/2021, there was concern that patient's heart rate was irregular, patient was placed on telemetry. Telemetry reviewed, patient in sinus mechanism HR 60s-70s, with PACs and PVCs, no evidence of atrial fibrillation at this point. Repeat EKG this morning revealed sinus bradycardia HR 54, with PACs, T wave inversion in leads V2-V3 and aVL. DIAGNOSTICS EKGs revealing sinus mechanism with PACs. MRI of the brain revealed acute infarct involving the yaneth. 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 Prior echocardiogram in 03/2020 revealed EF 5055% 03/14/2021: Patient seen and examined at bedside, no acute distress. She denies any chest pain, shortness of breath or palpitations. Telemetry reviewed, patient maintaining sinus mechanism with PACs, no evidence of atrial fibrillation at this point. Patient is currently maintained on aspirin 81 mg daily, atorvastatin 40 mg nightly, Plavix 75 mg daily, losartan 25 mg daily, diastolic 10 mg daily. Laboratory data reviewed, sodium 136, potassium 3.2, BUN 15, serum creatinine 0.8. PHYSICAL EXAMINATION Blood pressure 136/91, heart 57, afebrile, oxygen saturations 98% on 3L nasal cannula CONSTITUTIONAL: No apparent distress. HEENT:Neck Supple. No JVD. No carotid bruit. CHEST EXAMINATION: Lungs are clear to auscultation. No chest wall tenderness is noted on palpation or with deep breathing. HEART EXAMINATION: Regular rate and rhythm. S1, S2 heard. Systolic ejection murmur at apex, no gallops or rub. ABDOMEN: Soft, nontender. Positive bowel sounds. EXTREMITIES: 2+ peripheral pulses, no lower extremity edema and no calf tend erness. NEUROLOGIC EXAMINATION: Patient is awake, alert and oriented x3. 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 Patient is also maintained on aspirin, statin, plavix 30 day event monitor has been ordered Cardiomyopathy workup needs to be completed, this can be done as an outpatient Patient is stable from a cardiology standpoint. Recommend follow up with Dr. Causey as an outpatient Nurse Practitioner note has been reviewed, I agree with a documented findings and plan of care. Patient was seen and examined. Objective - Vital Signs Vital signs: Vital Signs Temp 97.4 F L 03/14/21 07:30 Pulse 57 L 03/14/21 07:30 Resp 17 03/14/21 07:30 BP 136/91 03/14/21 07:30 Pulse Ox 98 03/14/21 07:30 Intake & Output 03/13/21 03/14/21 03/14/21 18:59 06:59 18:59 Intake Total 1380 50 Output Total 600 600 25 Balance 780 -550 -25 Weight 83.915 kg Intake: Intake, IV Titration 50 Amount cefTRIAXone 1 gm In 50 Sodium Chloride 0.9% 50 ml @ 100 mls/hr IVPB Q12HR@0000,1200 [facility] Rx#: [id number] Oral 1380 Output: Urine 600 600 25 Uretheral (Staples) 600 Other: Voiding Method Indwelling Catheter Indwelling Catheter # Voids 0 - Labs CBC & Chem 7: 03/14/21 03:34 03/14/21 03:34 Labs: Abnormal Lab Results - Last 24 Hours (Table) 03/13/21 03/13/21 03/14/21 Range/Units 03:21 03:21 03:34 MCHC 31.2 L (32.0-37.0) g/dL Sodium 136 L (137-145) mmol/L Potassium 3.2 L (3.5-5.1) mmol/L Glucose 100 H (74-99) mg/dL Total Bilirubin 0.20 L (0.30-1.20) mg/dL Total Protein 5.7 L 5.4 L (6.2-8.2) g/dL Albumin 3.3 L 2.7 L (3.8-4.9) g/dL Albumin/Globulin Ratio 1.38 L (1.60-3.17) g/dL
[2021-03-14 14:08] VITALS: BP 117/77; PULSE 56; RESP 18; TEMP 97.3
== END 2021-03-14 14:41 | DRG 64 ==
LOC: EC 03:47 → 6NMEDSUR 08:58 → 4SSUR 13:10 → OBSVTOIN 03-08 10:49
PROVIDERS: ADMIT Family Medicine; ATTEND Family Medicine
DX: I63.29 Cerebral infarction due to unspecified occlusion or stenosis of other precerebral arteries (principal); G92.9 Unspecified toxic encephalopathy; I67.4 Hypertensive encephalopathy; I42.9 Cardiomyopathy, unspecified; N39.0 Urinary tract infection, site not specified; I42.8 Other cardiomyopathies; G81.94 Hemiplegia, unspecified affecting left nondominant side; G25.5 Other chorea; R03.0 Elevated blood-pressure reading, without diagnosis of hypertension; E05.00 Thyrotoxicosis with diffuse goiter without thyrotoxic crisis or storm; E66.9 Obesity, unspecified; N18.30 Chronic kidney disease, stage 3 unspecified; E78.5 Hyperlipidemia, unspecified; F40.240 Claustrophobia; Z82.0 Family history of epilepsy and other diseases of the nervous system; G89.29 Other chronic pain; H05.20 Unspecified exophthalmos; I16.0 Hypertensive urgency; I77.819 Aortic ectasia, unspecified site; I12.9 Hypertensive chronic kidney disease with stage 1 through stage 4 chronic kidney disease, or unspecified chronic kidney disease; I34.0 Nonrheumatic mitral (valve) insufficiency; I45.9 Conduction disorder, unspecified; I48.91 Unspecified atrial fibrillation; I49.1 Atrial premature depolarization; M19.90 Unspecified osteoarthritis, unspecified site; I25.5 Ischemic cardiomyopathy; Z20.822 Contact with and (suspected) exposure to COVID-19; M51.35 Other intervertebral disc degeneration, thoracolumbar region; I49.3 Ventricular premature depolarization; R29.810 Facial weakness; Z79.899 Other long term (current) drug therapy; Z79.82 Long term (current) use of aspirin; Z79.02 Long term (current) use of antithrombotics/antiplatelets; Z86.73 Personal history of transient ischemic attack (TIA), and cerebral infarction without residual deficits; Z87.891 Personal history of nicotine dependence; Z96.649 Presence of unspecified artificial hip joint; Z88.0 Allergy status to penicillin; Z98.51 Tubal ligation status; Z98.49 Cataract extraction status, unspecified eye; Z98.890 Other specified postprocedural states; R45.1 Restlessness and agitation
CPT/HCPCS: 36415; 70450; 70551; 71045; 72040; 76705; 80048; 80053; 80061; 80074; 80076; 81001; 82553; 82607; 82746; 83036; 83735; 84132; 84145; 84436; 84439; 84443; 84484; 85025; 85027; 85610; 85652; 85730; 86140; 87040; 87086; 87635; 93005; 93270; 93306; 93880; 94760; 95816; 96374; 99285

== ENCOUNTER 2021-11-28 10:16 | Day surgery (SDC) | payer MEDICARE, OTHER ==
[~2021-11-28 10:16] MED LIST: ALPRAZolam 0.25 MG TAB PO PRN; ALPRAZolam 0.5 MG TAB PO PRN; ASPIRIN 325 MG TAB PO STA; ATORVASTATIN 80 MG TAB PO STA; HEPARIN SODIUM,PORCINE 10,000 UNIT in SODIUM CHLORIDE 0.9% 1,000 ML IRRIGATION PRN; HEPARIN SODIUM,PORCINE 2,500 UNIT in SODIUM CHLORIDE 0.9% 250 ML IRRIGATION PRN; NITROGLYCERIN SL TABS 0.4 MG TAB SUBLINGUAL PRN; SODIUM CHLORIDE 0.9% 1,000 ML in EMPTY BAG 1 BAG IV SCH
[2021-11-28 11:13] VITALS: RESP 16; TEMP 99
[2021-11-28] MEDS ORDERED: VERAPAMIL 2.5 MG/ML 2 ML AMP ONE (11:46)
[2021-11-28] MEDS ORDERED: HEPARIN SODIUM 1,000 UN/ML (10ML VL) ONE (12:16)
[2021-11-28] MEDS: MIDAZOLAM 2 MG/2 ML VIAL IV ONE ×2 (12:38→12:45)
[2021-11-28] MEDS ORDERED: LIDOCAINE 1% INJ 10MG/ML (30 ML VIAL-PF) SQ ONE (12:39)
[2021-11-28] MEDS ORDERED: VERAPAMIL SYRINGE (5 MG/10 ML) INTRAARTER ONE (12:41)
[2021-11-28] MEDS ORDERED: IOPAMIDOL-370 125ML BTL INJ ONE (13:12)
[2021-11-28] MEDS ORDERED: RX INFO: IV CONTRAST WAS GIVEN 1 EACH MISC MISCELLANE PRN (13:16)
--- NOTE | 2021-11-28 13:20 | P.PCN ---
Date of Procedure: 11/28/21 Operative Findings: CARDIAC CATHETERIZATION PERFORMING PHYSICIAN: Justin Portillo MD, RPVI PROCEDURE PERFORMED: 1. Selective right and left coronary angiogram 2. Left heart catheterization INDICATION: Right common femoral artery COMPLICATION: None APPROACH: Right common femoral artery LEVEL OF SEDATION: Moderate with sedation length of 15 minutes PROCEDURE DESCRIPTION: After obtaining an informed consent, the patient was brought to cardiac microbiology lab manager. Initially we accessed the right radial artery but because of severe tortuosity of the right subclavian we could not engage the coronaries. At that point we decided to axis the right common femoral artery The right common femoral artery was cannulated using Seldinger technique, the guidewire passed easily, following that we advanced a 6 [place] sheath dilator assembly, the wire and dilator were removed and sheath was flushed. Selective right and left coronary angiogram using a 6-[place] JR4 and JL 4.5 catheters. Following that we did left heart catheterization using 6-[place] pigtail catheter. The procedure was completed there was no complication. SELECTIVE CORONARY ANGIOGRAM: The right coronary artery: Large-caliber vessel and a dominant vessel. The RCA appeared to have mild disease distally. Bifurcates into PDA and PLV branches both appeared to be angiographically normal Left main: Is angiographically normal and bifurcates into a LCx and LAD The left circumflex: Large caliber vessel nondominant vessel with the LCx appeared to have mild disease only The left anterior descending artery: As caliber vessel. The LAD has mild disease only. Gives rises into multiple diagonal branches appeared to be angiographically normal HEMODYNAMICS: LVEDP was 16 mmHg was no significant gradient across aortic valve CONCLUSION: 1. Mild disease involving the RCA distally 2. Mildly elevated left-sided filling pressures POSTPROCEDURE MANAGEMENT: medical treatment and follow-up with the patient
[2021-11-28] MEDS ORDERED: SODIUM CHLORIDE 0.9% 1,000 ML IV SCH (13:30)
[2021-11-28 16:13] VITALS: BP 148/72; PULSE 44
== END 2021-11-28 17:45 | disposition home or self-care (01) ==
LOC: CATHCVL 10:16
PROVIDERS: ATTEND Internal Medicine Interventional Cardiology
DX: I25.10 Atherosclerotic heart disease of native coronary artery without angina pectoris (principal); I10 Essential (primary) hypertension; Z82.49 Family history of ischemic heart disease and other diseases of the circulatory system
CPT/HCPCS: 93458; C1769 ×4; C1760; C1894 ×2; J2250; J2001; J1644; Q9967